=== PATIENT | male | born 1950 | race American Indian/Alaskan Native ===

== ENCOUNTER 2018-10-01 16:11 | Inpatient (IN) | payer MEDICARE ==
--- NOTE | 2018-10-01 16:26 | Event Note ---
ED Screening Note Date of service: 10/01/18 Time: 16:25 ED Screening Note: 68 y/o male comes in for 24 hour history of facial drrop. Patient has no other deficits. PMH of HTN. This initial assessment/diagnostic orders/clinical plan/treatment(s) is/are subject to change based on patients health status, clinical progression and re- assessment by fellow clinical providers in the ED. Further treatment and workup at subsequent clinical providers discretion. Patient/guardian urged not to elope from the ED as their condition may be serious if not clinically assessed and managed. Initial orders include:
[2018-10-01 16:55] LABS: Basophils % (Auto) 0.7 % (0.0-1.8); Eosinophils # (Auto) 0.1 K/mm3 (0.0-0.4); Eosinophils % (Auto) 1.5 % (0.0-4.3); Hematocrit 43.1 % (35.5-45.6); Hemoglobin 14.8 gm/dl (11.8-15.2); Lymphocytes # (Auto) 1.9 K/mm3 (1.2-5.4); Lymphocytes % (Auto) 30.5 % (13.4-35.0); Mean Corpuscular HGB Conc 34 % (32-34); Mean Corpuscular Volume 90 fl (84-94); Monocytes # (Auto) 0.6 K/mm3 (0.0-0.8); Monocytes % (Auto) 9.1 % (0.0-7.3); Platelet Count 161 K/mm3 (140-440); Red Cell Distribution Width 13.7 % (13.2-15.2)
[2018-10-01 17:09] LABS: INR 1.09 (0.87-1.13)
[2018-10-01 17:11] LABS: Partial Thromboplastin Time 30.7 Sec. (24.2-36.6)
[2018-10-01 17:14] LABS: Creatine Kinase MB 2.4 ng/mL (0.0-4.0)
[2018-10-01] MEDS ORDERED: APRESOLINE ONE (17:20)
[2018-10-01] MEDS ORDERED: APRESOLINE IV ONE (17:23)
--- NOTE | 2018-10-01 17:23 | Emergency Department Report ---
ED Neuro Deficit HPI - General Chief Complaint: Neuro Symptoms/Deficit Stated Complaint: SPEECH SLUR Time Seen by Provider: 10/01/18 16:59 Source: patient Mode of arrival: Ambulatory Limitations: No Limitations - History of Present Illness Initial Comments: Patient is a 68-year-old male presents to emergency room with complaints of left-sided facial droop and slurred speech. Patient states his last well time was 5 PM yesterday. Patient states his facial droop started yesterday at 5 PM and his slurred speech started today at 7 AM. Patient denies chest pain. Patient denies limb weakness. Patient denies shortness of breath. Patient denies fever and chills. Patient denies headache. -: Sudden Location: speech, left face Presenting Symptoms: Present: Facial Droop/Numbness History of same: No Place: home Severity: severe Improves With: none Worsens With: none On Anticoagulants: No Context: sudden onset Associated Symptoms: denies: confusion, chest pain, cough, diaphoresis, fever/chills, headaches, loss of appetite, malise, nausea/vomiting, vertigo, seizures, shortness of breath, syncope - Related Data Home Medications: Home Medications Medication Instructions Recorded Confirmed Last Taken amLODIPine [Norvasc] 5 mg PO DAILY 10/01/18 10/01/18 Unknown Allergies/Adverse Reactions: Allergies Allergy/AdvReac Type Severity Reaction Status Date / Time No Known Allergies Allergy Verified 10/01/18 16:20 ED Review of Systems ROS: Stated complaint: SPEECH SLUR Other details as noted in HPI Constitutional: denies: chills, fever Eyes: denies: eye pain, eye discharge, vision change ENT: denies: ear pain, throat pain Respiratory: denies: cough, shortness of breath, wheezing Cardiovascular: denies: chest pain, palpitations Endocrine: no symptoms reported Gastrointestinal: denies: abdominal pain, nausea, diarrhea Genitourinary: denies: urgency, dysuria Musculoskeletal: denies: back pain, joint swelling, arthralgia Skin: denies: rash, lesions Neurological: denies: headache, weakness, paresthesias Psychiatric: denies: anxiety, depression Hematological/Lymphatic: denies: easy bleeding, easy bruising ED Past Medical Hx - Social History Smoking Status: Never Smoker Substance Use Type: None - Medications Home Medications: Home Medications Medication Instructions Recorded Confirmed Last Taken Type amLODIPine [Norvasc] 5 mg PO DAILY 10/01/18 10/01/18 Unknown History ED Neuro Physical Exam - General Limitations: No Limitations General appearance: alert, in no apparent distress Suspected Stroke: Yes - Head Head exam: Present: atraumatic, normocephalic - Eye Eye exam: Present: normal appearance - ENT ENT exam: Present: mucous membranes moist - Neck Neck exam: Present: normal inspection - Respiratory Respiratory exam: Present: normal lung sounds bilaterally. Absent: respiratory distress, wheezes, rales - Cardiovascular Cardiovascular Exam: Present: regular rate, normal rhythm. Absent: systolic murmur, diastolic murmur, rubs, gallop - GI/Abdominal GI/Abdominal exam: Present: soft, normal bowel sounds - Rectal Rectal exam: Present: deferred - Extremities Exam Extremities exam: Present: normal inspection - Back Exam Back exam: Present: normal inspection - Neurological Exam Neurological exam: Present: alert, oriented X3 - NIHSS Assessment Interval: Baseline 1a. Level of Consciousness: alert/keenly responsive 1b. LOC Questions: answers both correctly 1c. LOC Commands: performs tasks correctly 2. Best Gaze: normal 3. Visual: no visual loss 4. Facial Palsy: minor paralysis 5b. Motor Arm Right: no drift 5a. Motor Arm Left: no drift 6a. Motor Leg Left: no drift 6b. Motor Leg Right: no drift 7. Limb Ataxia: absent 8. Sensory: normal 9. Best Language: no aphasia 10. Dysarthria: mild/moderate dysarthria 11. Extinction/Inattention: no abnormality Total Score: 2 Stroke Severity: Minor Stroke - Psychiatric Psychiatric exam: Present: normal affect, normal mood - Skin Skin exam: Present: warm, dry, intact, normal color. Absent: rash ED Course Vital Signs 10/01/18 10/01/18 10/01/18 16:19 16:54 17:00 Temperature 97.6 F Pulse Rate 74 71 75 Respiratory 16 14 22 Rate Blood Pressure 173/102 180/83 Blood Pressure [Left] O2 Sat by Pulse 96 97 Oximetry 10/01/18 10/01/18 10/01/18 17:15 17:21 17:33 Temperature Pulse Rate 71 73 Respiratory 24 15 Rate Blood Pressure 176/125 Blood Pressure [Left] O2 Sat by Pulse 98 97 99 Oximetry 10/01/18 10/01/18 10/01/18 17:40 17:45 18:01 Temperature Pulse Rate 83 86 Respiratory 21 20 Rate Blood Pressure 168/105 168/105 161/78 Blood Pressure [Left] O2 Sat by Pulse 98 98 Oximetry 10/01/18 10/01/18 10/01/18 18:15 18:30 18:45 Temperature Pulse Rate 91 H 90 87 Respiratory 23 24 18 Rate Blood Pressure 163/77 158/86 158/86 Blood Pressure [Left] O2 Sat by Pulse 98 97 99 Oximetry 10/01/18 10/01/18 10/01/18 19:01 19:15 19:30 Temperature 98.5 F Pulse Rate 118 H 120 H 112 H Respiratory 27 H 25 H 20 Rate Blood Pressure 148/78 169/100 Blood Pressure 141/92 [Left] O2 Sat by Pulse 98 98 Oximetry 10/01/18 10/01/18 10/01/18 19:31 19:45 20:01 Temperature Pulse Rate 129 H 124 H 126 H Respiratory 26 H 26 H 23 Rate Blood Pressure 141/92 141/92 140/68 Blood Pressure [Left] O2 Sat by Pulse 97 98 96 Oximetry 10/01/18 10/01/18 10/01/18 20:15 20:30 20:31 Temperature Pulse Rate 125 H 128 H Respiratory 25 H 20 16 Rate Blood Pressure 140/68 150/120 Blood Pressure [Left] O2 Sat by Pulse 97 98 95 Oximetry 10/01/18 10/01/18 10/01/18 20:40 20:45 21:01 Temperature Pulse Rate 130 H 97 H 106 H Respiratory 18 22 Rate Blood Pressure 140/67 123/91 138/72 Blood Pressure [Left] O2 Sat by Pulse 96 94 Oximetry 10/01/18 10/01/18 10/01/18 21:15 21:31 21:45 Temperature Pulse Rate 99 H 103 H 109 H Respiratory 17 25 H 23 Rate Blood Pressure 138/72 132/80 132/80 Blood Pressure [Left] O2 Sat by Pulse 98 92 97 Oximetry 10/01/18 10/01/18 10/01/18 22:01 22:15 22:30 Temperature Pulse Rate 98 H 110 H 91 H Respiratory 21 15 26 H Rate Blood Pressure 135/94 135/94 144/83 Blood Pressure [Left] O2 Sat by Pulse 92 97 92 Oximetry 10/01/18 10/01/18 10/01/18 22:45 23:00 23:15 Temperature Pulse Rate 94 H 87 85 Respiratory 23 24 22 Rate Blood Pressure 144/83 128/77 128/77 Blood Pressure [Left] O2 Sat by Pulse 97 92 95 Oximetry 10/01/18 10/01/18 23:31 23:45 Temperature Pulse Rate 84 77 Respiratory 25 H 25 H Rate Blood Pressure 133/76 133/76 Blood Pressure [Left] O2 Sat by Pulse 94 97 Oximetry - Reevaluation(s) Reevaluation #1: I discussed all results to patient. Patient agrees with plan of care and admission. Patient will be admitted to the hospitalist service 10/01/18 18:39 Reevaluation #2: Patient noticed 3 tachycardic and EKG done. Patient found the A. fib RVR. Patient was given Cardizem push and placed on a drip. 10/01/18 20:29 - Consultations Consultation #1: Neurology base and neurologist wants the patient to be admitted for stroke workup. I discussed the case with Dr. Valdivia 10/01/18 17:21 Consultation #2: Hospitalist consulted. Hospitalist to admit patient and assume care of patient. 10/01/18 18:40 - Lab Data Result diagrams: 10/01/18 16:27 10/01/18 18:15 Lab Results 10/01/18 10/01/18 10/01/18 Range/Units 16:27 16:27 16:27 WBC 6.1 (4.5-11.0) K/mm3 RBC 4.80 (3.65-5.03) M/mm3 Hgb 14.8 (11.8-15.2) gm/dl Hct 43.1 (35.5-45.6) % MCV 90 (84-94) fl MCH 31 (28-32) pg MCHC 34 (32-34) % RDW 13.7 (13.2-15.2) % Plt Count 161 (140-440) K/mm3 Lymph % (Auto) 30.5 (13.4-35.0) % Beckham % (Auto) 9.1 H (0.0-7.3) % Eos % (Auto) 1.5 (0.0-4.3) % Baso % (Auto) 0.7 (0.0-1.8) % Lymph # 1.9 (1.2-5.4) K/mm3 Beckham # 0.6 (0.0-0.8) K/mm3 Eos # 0.1 (0.0-0.4) K/mm3 Baso # 0.0 (0.0-0.1) K/mm3 Seg Neutrophils % 58.2 (40.0-70.0) % Seg Neutrophils # 3.6 (1.8-7.7) K/mm3 PT 13.8 (12.2-14.9) Sec. INR 1.09 (0.87-1.13) APTT 30.7 (24.2-36.6) Sec. Thrombin Time 17.1 (15.1-19.6) Sec. Sodium (137-145) mmol/L Potassium (3.6-5.0) mmol/L Chloride (98-107) mmol/L Carbon Dioxide (22-30) mmol/L Anion Gap mmol/L BUN (9-20) mg/dL Creatinine (0.8-1.5) mg/dL Estimated GFR ml/min BUN/Creatinine Ratio % Glucose (75-100) mg/dL Hemoglobin A1c (4-6) % Calcium (8.4-10.2) mg/dL Total Bilirubin (0.1-1.2) mg/dL AST (5-40) units/L ALT (7-56) units/L Alkaline Phosphatase (35-129) units/L Total Creatine Kinase 144 (55-170) units/L CK-MB (CK-2) 2.4 (0.0-4.0) ng/mL CK-MB (CK-2) Rel Index 1.6 (0-4) Troponin T < 0.010 (0.00-0.029) ng/mL Total Protein (6.3-8.2) g/dL Albumin (3.9-5) g/dL Albumin/Globulin Ratio % 10/01/18 10/01/18 Range/Units 16:27 18:15 WBC (4.5-11.0) K/mm3 RBC (3.65-5.03) M/mm3 Hgb (11.8-15.2) gm/dl Hct (35.5-45.6) % MCV (84-94) fl MCH (28-32) pg MCHC (32-34) % RDW (13.2-15.2) % Plt Count (140-440) K/mm3 Lymph % (Auto) (13.4-35.0) % Beckham % (Auto) (0.0-7.3) % Eos % (Auto) (0.0-4.3) % Baso % (Auto) (0.0-1.8) % Lymph # (1.2-5.4) K/mm3 Beckham # (0.0-0.8) K/mm3 Eos # (0.0-0.4) K/mm3 Baso # (0.0-0.1) K/mm3 Seg Neutrophils % (40.0-70.0) % Seg Neutrophils # (1.8-7.7) K/mm3 PT (12.2-14.9) Sec. INR (0.87-1.13) APTT (24.2-36.6) Sec. Thrombin Time (15.1-19.6) Sec. Sodium 138 (137-145) mmol/L Potassium 3.4 L (3.6-5.0) mmol/L Chloride 103.6 (98-107) mmol/L Carbon Dioxide 23 (22-30) mmol/L Anion Gap 15 mmol/L BUN 10 (9-20) mg/dL Creatinine 0.7 L (0.8-1.5) mg/dL Estimated GFR > 60 ml/min BUN/Creatinine Ratio 14 % Glucose 104 H (75-100) mg/dL Hemoglobin A1c 6.2 H (4-6) % Calcium 8.9 (8.4-10.2) mg/dL Total Bilirubin 0.30 (0.1-1.2) mg/dL AST 15 (5-40) units/L ALT 10 (7-56) units/L Alkaline Phosphatase 63 (35-129) units/L Total Creatine Kinase (55-170) units/L CK-MB (CK-2) (0.0-4.0) ng/mL CK-MB (CK-2) Rel Index (0-4) Troponin T (0.00-0.029) ng/mL Total Protein 7.3 (6.3-8.2) g/dL Albumin 3.9 (3.9-5) g/dL Albumin/Globulin Ratio 1.1 % - EKG Data -: EKG Interpreted by Me EKG shows normal: sinus rhythm, axis, intervals, QRS complexes, ST-T waves Rate: normal Interpretation: LVH - Radiology Data Radiology results: report reviewed, image reviewed Head CT without intravenous contrast INDICATION: Possible stroke COMPARISON: None FINDINGS: The ventricles are normal in size and position. No hemorrhage or extra-axial fluid collection. No edema or mass effect. There are 2 1 cm low density areas in the left centrum se miovale consistent with ischemia. There is a third smaller area just adjacent to the left frontal horn. These may be recent. No other areas of ischemia are seen. Portions of the sinuses visualized are clear. IMPRESSION: 3 areas of low density in the left centrum semiovale may represent recent areas of ischemia. No hemorrhage is seen. - Medical Decision Making Patient is 68-year-old male presents emergency room with slurred speech and facial drooping 1 day. Patient also underwent TPA. Neurology consult on. Patient admitted to the hospitalist service. Patient's CT done and shows 3 subacute stroke. Patient's labs unremarkable. Patient's EKG normal. Patient found to have A. fib RVR in the lateral portion of his ER visit. Patient placed on Cardizem drip and given Cardizem push. - Differential Diagnosis CVA. Weakness. Facial droop. Slurred speech - Core Measures AMI Core Measures Followed: Yes Critical Care Time: Yes Critical care attestation.: If time is entered above; I have spent that time in minutes in the direct care of this critically ill patient, excluding procedure time. Critical Care Time: 35 minutes ED Disposition Clinical Impression: Facial droop, Slurred speech, Atrial fibrillation with RVR, New onset a-fib CVA (cerebral vascular accident) Qualifiers: CVA mechanism: unspecified Qualified Code(s): I63.9 - Cerebral infarction, unspecified Hypertension Qualifiers: Hypertension type: essential hypertension Qualified Code(s): I10 - Essential (primary) hypertension Disposition: OP ADMIT IP TO THIS HOSP Is pt being admited?: Yes Does the pt Need Aspirin: No Condition: Critical Time of Disposition: 18:40
[2018-10-01 17:51] LABS: Thrombin Time 17.1 Sec. (15.1-19.6)
[2018-10-01] MEDS ORDERED: NACL 0.9% 1000 ML 1,000 ML ONE (18:01)
--- NOTE | 2018-10-01 18:18 | Cat Scan Report ---
Head CT without intravenous contrast INDICATION: Possible stroke COMPARISON: None FINDINGS: The ventricles are normal in size and position. No hemorrhage or extra-axial fluid collecti on. No edema or mass effect. There are 2 1 cm low density areas in the left centrum semiovale consis tent with ischemia. There is a third smaller area just adjacent to the left frontal horn. These may b e recent. No other areas of ischemia are seen. Portions of the sinuses visualized are clear. IMPRESSION: 3 areas of low density in the left centrum semiovale may represent recent areas of ischem ia. No hemorrhage is seen. Report was called to Dr. Yung at 1715 hours central time. Time discovery was 1705 hours. Automated exposure control was utilized to diminish radiation dose Signer Name: Arya Maurice MD Signed: 10/01/2018 6:14 PM Workstation Name: [id number]
[2018-10-01 18:46] LABS: Alanine Aminotransferase 10 units/L (7-56); Albumin 3.9 g/dL (3.9-5); BUN/Creatinine Ratio 14; Blood Urea Nitrogen 10 mg/dL (9-20); Calcium 8.9 mg/dL (8.4-10.2); Hemolysis Index 12
[2018-10-01] MEDS ORDERED: ZOFRAN ONE (19:02)
[2018-10-01] MEDS ORDERED: ZOFRAN IV ONE (19:26)
[2018-10-01] MEDS ORDERED: NACL 0.9% 1000 ML 1,000 ML IV ONE (19:29)
[2018-10-01] MEDS ORDERED: CARDIZEM IV ONE (20:30)
[2018-10-01] MEDS ORDERED: CARDIZEM ONE (20:34)
--- NOTE | 2018-10-01 20:59 | History and Physical Report ---
History of Present Illness Date of examination: 10/01/18 Date of admission: 10/01/2018 Chief complaint: Left facial droop and slurred speech since morning History of present illness: 68 year-old -[place] male with history of hypertension comes in for left facial droop and slurred speech since morning. There are 2 versions that the facial droop started last evening and the second version is that it started this morning. Patient is left facial droop and slurred speech. Normal strength in left upper and left lower extremity and able to walk. No diplopia, dysphagia or nasal regurgitation of fluids. No fever or chills. No chest pain. No confusion. Has difficulty in searching for the right word Past medical history HTN Past surgical history none Family history Htn Social History Smoking Status: Never Smoker Substance Use Type: None He Related Data Home Medications: Home Medications Medication Instructions Recorded Confirmed Last Taken amLODIPine [Norvasc] 5 mg PO DAILY 10/01/18 10/01/18 Unknown Allergies/Adverse Reactions: Allergies Allergy/AdvReac Type Severity Reaction Status Date / Time No Known Allergies Allergy Verified 10/01/18 16:20 - Medications Home Medications: Home Medications Medication Instructions Recorded Confirmed Last Taken Type amLODIPine [Norvasc] 5 mg PO DAILY 10/01/18 10/01/18 Unknown History Review of Systems ROS: Stated complaint: SPEECH SLUR Other details as noted in HPI Constitutional: denies: chills, fever Eyes: denies: eye pain, eye discharge, vision change ENT: denies: ear pain, throat pain Respiratory: denies: cough, shortness of breath, wheezing Cardiovascular: denies: chest pain, palpitations Endocrine: no symptoms reported Gastrointestinal: denies: abdominal pain, nausea, diarrhea Genitourinary: denies: urgency, dysuria Musculoskeletal: denies: back pain, joint swelling, arthralgia Skin: denies: rash, lesions Neurological: Left facial droop and slurred speech, difficulty finding words consistent with dyspraxia Psychiatric: denies: anxiety, depression Hematological/Lymphatic: denies: easy bleeding, easy bruising Abdomen L with echo no use of October. He is a 1 is on is forgetting to ADMISSION OVER, THE Medications and Allergies Allergies Allergy/AdvReac Type Severity Reaction Status Date / Time No Known Allergies Allergy Verified 10/01/18 16:20 Home Medications Medication Instructions Recorded Confirmed Last Taken Type amLODIPine [Norvasc] 5 mg PO DAILY 10/01/18 10/01/18 Unknown History Active Meds: Active Medications Diltiazem HCl (Cardizem/D5w 100mg/100ml) 100 mg in 100 mls @ 5 mls/hr IV TITR JORGE; Protocol Exam - Constitutional Vitals: Temp Pulse Resp BP Pulse Ox 98.5 F 112 H 20 141/92 98 10/01/18 19:30 10/01/18 19:30 10/01/18 19:30 10/01/18 19:30 10/01/18 19:30 General appearance: Present: no acute distress, well-nourished - EENT Eyes: Present: PERRL ENT: hearing intact, clear oral mucosa - Neck Neck: Present: supple, normal ROM - Respiratory Respiratory effort: normal Respiratory: bilateral: CTA - Cardiovascular Heart rate: 70 Rhythm: regular Heart Sounds: Present: S1 & S2. Absent: rub, click - Extremities Extremities: no ischemia, pulses intact, pulses symmetrical, No edema Peripheral Pulses: within normal limits - Abdominal General gastrointestinal: Present: soft, non-tender, non-distended, normal bowel sounds Male genitourinary: Present: normal - Rectal Rectal Exam: deferred - Integumentary Integumentary: Present: clear, warm, dry - Musculoskeletal Musculoskeletal: gait normal, strength equal bilaterally - Psychiatric Psychiatric: appropriate mood/affect, intact judgment & insight - Neurologic Neurologic: focal deficits (left facial palsy ), moves all extremities (strength is 5/5 in all 4 extremities) - Allied Health Allied health notes reviewed: nursing, case management Results - Labs CBC & Chem 7: 10/01/18 16:27 10/01/18 18:15 Labs: Laboratory Last Values WBC 6.1 K/mm3 (4.5-11.0) 10/01/18 16:27 RBC 4.80 M/mm3 (3.65-5.03) 10/01/18 16:27 Hgb 14.8 gm/dl (11.8-15.2) 10/01/18 16:27 Hct 43.1 % (35.5-45.6) 10/01/18 16:27 MCV 90 fl (84-94) 10/01/18 16:27 MCH 31 pg (28-32) 10/01/18 16:27 MCHC 34 % (32-34) 10/01/18 16:27 RDW 13.7 % (13.2-15.2) 10/01/18 16:27 Plt Count 161 K/mm3 (140-440) 10/01/18 16:27 Lymph % (Auto) 30.5 % (13.4-35.0) 10/01/18 16:27 Cobb % (Auto) 9.1 % (0.0-7.3) H 10/01/18 16:27 Eos % (Auto) 1.5 % (0.0-4.3) 10/01/18 16:27 Baso % (Auto) 0.7 % (0.0-1.8) 10/01/18 16:27 Lymph # 1.9 K/mm3 (1.2-5.4) 10/01/18 16:27 Cobb # 0.6 K/mm3 (0.0-0.8) 10/01/18 16: Eos # 0.1 K/mm3 (0.0-0.4) 10/01/18 16:27 Baso # 0.0 K/mm3 (0.0-0.1) 10/01/18 16:27 Seg Neutrophils % 58.2 % (40.0-70.0) 10/01/18 16: Seg Neutrophils # 3.6 K/mm3 (1.8-7.7) 10/01/18 16:27 PT 13.8 Sec. (12.2-14.9) 10/01/18 16: INR 1.09 (0.87-1.13) 10/01/18 16:27 APTT 30.7 Sec. (24.2-36.6) 10/01/18 16:27 17.1 Sec. (15.1-19.6) 10/01/18 16:27 Sodium 138 mmol/L (137-145) 10/01/18 18:15 Potassium 3.4 mmol/L (3.6-5.0) L 10/01/18 18:15 Chloride 103.6 mmol/L (98-107) 10/01/18 18:15 Carbon Dioxide 23 mmol/L (22-30) 10/01/18 18:15 15 mmol/L 10/01/18 18:15 BUN 10 mg/dL (9-20) 10/01/18 18:15 0.7 mg/dL (0.8-1.5) L 10/01/18 18:15 Estimated GFR > 60 ml/min 10/01/18 18:15 14 % 10/01/18 18:15 Glucose 104 mg/dL (75-100) H 10/01/18 18:15 Calcium 8.9 mg/dL (8.4-10.2) 10/01/18 18:15 0.30 mg/dL (0.1-1.2) 10/01/18 18:15 AST 15 units/L (5-40) 10/01/18 18:15 ALT 10 units/L (7-56) 10/01/18 18:15 63 units/L (35-129) 10/01/18 18:15 144 units/L (55-170) 10/01/18 16:27 CK-MB (CK-2) 2.4 ng/mL (0.0-4.0) 10/01/18 16:27 CK-MB (CK-2) Rel Index 1.6 (0-4) 10/01/18 16:27 < 0.010 ng/mL (0.00-0.029) 10/01/18 16:27 7.3 g/dL (6.3-8.2) 10/01/18 18:15 3.9 g/dL (3.9-5) 10/01/18 18:15 1.1 % 10/01/18 18:15 Short CBC 10/01/18 Range/Units 16:27 WBC 6.1 (4.5-11.0) K/mm3 Hgb 14.8 (11.8-15.2) gm/dl Hct 43.1 (35.5-45.6) % Plt Count 161 (140-440) K/mm3 BMP 10/01/18 18:15 Sodium 138 Potassium 3.4 L Chloride 103.6 Carbon Dioxide 23 BUN 10 Creatinine 0.7 L Glucose 104 H Calcium 8.9 Cardiac Enzymes 10/01/18 Range/Units 16:27 Total Creatine Kinase 144 (55-170) units/L CK-MB (CK-2) 2.4 (0.0-4.0) ng/mL Troponin T < 0.010 (0.00-0.029) ng/mL Liver Function 10/01/18 Range/Units 18:15 Total Bilirubin 0.30 (0.1-1.2) mg/dL AST 15 (5-40) units/L ALT 10 (7-56) units/L Alkaline Phosphatase 63 (35-129) units/L Albumin 3.9 (3.9-5) g/dL - Imaging and Cardiology EKG: report reviewed (heart rate 70/m normal sinus rhythm no acute ST-T wave changes) CT Scan - head: report reviewed Imaging and Cardiology: Head CT IMPRESSION: 3 areas of low density in the left centrum semiovale may represent recent areas of ischemia. No hemorrhage is seen. Assessment and Plan Advance Directives: Yes (full code) VTE prophylaxis?: Chemical Plan of care discussed with patient/family: Yes - Patient Problems (1) CVA (cerebral vascular accident) Current Visit: Yes Status: Acute Qualifiers: CVA mechanism: unspecified Qualified Code(s): I63.9 - Cerebral infarction, unspecified Plan to address problem: A acute CVA workup Patient is left facial droop and slurred speech and dyspraxia Stroke protocol initiated Neurology consult requested Aspirin and Plavix initiated Statins initiated (2) Atrial fibrillation with RVR Current Visit: Yes Status: Acute Plan to address problem: Patient developed atrial fibrillation with RVR while in the emergency room Patient initiated on Cardizem drip Cardiology consult requested (3) Hypertension Current Visit: Yes Status: Chronic Qualifiers: Hypertension type: essential hypertension Qualified Code(s): I10 - Essential (primary) hypertension Plan to address problem: Continue amlodipine (4) Hypokalemia Current Visit: Yes Status: Acute Plan to address problem: Potassium supplemented (5) DVT prophylaxis Current Visit: Yes Status: Acute Plan to address problem: On Lovenox and GI prophylaxis
[2018-10-01] MEDS ORDERED: CARDIZEM/D5W 100MG/100ML 100 MG/100 ML BAG IV SCH (21:00)
[2018-10-01] MEDS ORDERED: ZOFRAN IV PRN (21:14)
[2018-10-01] MEDS ORDERED: TYLENOL PO PRN (21:14)
[2018-10-01] MEDS ORDERED: SODIUM CHLORIDE FLUSH SYRINGE 10 ML IV PRN (21:14)
[2018-10-01] MEDS ORDERED: IBUPROFEN PO PRN (21:14)
[2018-10-01] MEDS ORDERED: DILAUDID IV PRN (21:14)
[2018-10-01] MEDS ORDERED: SODIUM CHLORIDE FLUSH SYRINGE 10 ML INJ PRN (21:20)
[2018-10-01] MEDS ORDERED: PLAVIX PO ONE (21:29)
[2018-10-01] MEDS ORDERED: LOVENOX SUB-Q SCH (22:00)
[2018-10-02] MEDS: ASPIRIN PO SCH ×2 (00:58→13:36)
[2018-10-02] MEDS: CARDIZEM CD PO SCH ×2 (00:59→22:00)
[2018-10-02] MEDS: PEPCID PO SCH ×3 (01:08→22:00)
[2018-10-02] MEDS ORDERED: LOVENOX SUB-Q ONE (02:18)
[2018-10-02] MEDS: SODIUM CHLORIDE FLUSH SYRINGE 10 ML IV SCH ×3 (02:47→22:01)
[2018-10-02 05:33] LABS: Basophils % (Auto) 0.5 % (0.0-1.8); Eosinophils % (Auto) 0.3 % (0.0-4.3); Hematocrit 42.7 % (35.5-45.6); Hemoglobin 14.4 gm/dl (11.8-15.2); Lymphocytes # (Auto) 1.6 K/mm3 (1.2-5.4); Lymphocytes % (Auto) 21.4 % (13.4-35.0); Mean Corpuscular HGB Conc 34 % (32-34); Mean Corpuscular Volume 91 fl (84-94); Monocytes # (Auto) 0.7 K/mm3 (0.0-0.8); Platelet Count 167 K/mm3 (140-440); Red Blood Count 4.71 M/mm3 (3.65-5.03); Red Cell Distribution Width 13.7 % (13.2-15.2)
[2018-10-02 05:56] LABS: Alanine Aminotransferase 9 units/L (7-56); Albumin 3.8 g/dL (3.9-5); BUN/Creatinine Ratio 13; Blood Urea Nitrogen 9 mg/dL (9-20); Calcium 8.7 mg/dL (8.4-10.2); Chol/HDL Ratio 3.43 %; HDL Cholesterol 37 mg/dL (40-59); Hemolysis Index 7; LDL Cholesterol,Direct 89 mg/dL (50-130)
--- NOTE | 2018-10-02 08:16 | Progress Note ---
Assessment and Plan Assessment and plan: 68-year-old male patient was admitted through emergency room with right-sided weakness Neuro workup so far is consistent with acute CVA, patient also has paroxysmal atrial fibrillation with rapid ventricular rate -- CVA (cerebral vascular accident) Current Visit: Yes Status: Acute Acute CVA ; not a candidate for TPA Patient is left facial droop and slurred speech and dyspraxia On Stroke protocol. Neuro workup in progress Aspirin and Statin, PT,OT,ST and rehab Neurologist Dr Cardona evaluated the patient Discussed with him Recommend heparin drip[without bolus] And start Eliquis tomorrow if stable Neuro w/u so far: CT head without contrast; 3 areas of low density in lt centrum semiovale represent recent area of ischemia MRI brain; Patchy areas of ischemia seen in the deep white matter watershed area of the left cerebral hemisphere minimal involvement of the ganglion capsular region; Findings consistent with acute early subacute CVA MRA: Slow flow or no flow suggested in the left internal carotid artery Slow flow in distal right vertebral artery. hemo dynamically significant marked asymmetry in the MCA territory Carotid Doppler; right internal carotid artery less than 50 diameter stenosis Left internal carotid artery occlusion Echocardiogram --Lt Carotid artery stenosis/Occlusion Current Visit: Yes Status: Acute Plan to address problem: Antiplatelets and statins Vascular consult --Atrial fibrillation with RVR Current Visit: Yes Status: Acute Plan to address problem: Patient developed atrial fibrillation with RVR s/p Cardizem drip, changed to oral Cardizem Sinus rhythm today Cardiology evaluated --Hypertension Current Visit: Yes Status: Chronic Permissive hypertension per stroke protocol Continue antihypertensives --Hypokalemia Current Visit: Yes Status: Acute Plan to address problem: Potassium supplemented,corrected -- DVT prophylaxis Current Visit: Yes Status: Acute Plan to address problem: On heparin drip and GI prophylaxis ;Pepcid Physical therapy occupational therapy speech therapy Discharge planning. Case management; rehabilitation versus home with home health When medically stable Follow-up conference and recommendations Plan of care is reviewed with the patient, his at the bedside And his nurse Disposition; follow clinically, PT OT rehabilitation DC heparin drip and started Mucomyst tomorrow if stable Follow neurology, cardiology recommendations History Interval history: Patient seen and examined medical records reviewed 68-year-old male patient was admitted through emergency room with right-sided weakness Neuro workup so far is consistent with acute CVA, patient also has paroxysmal atrial fibrillation with rapid ventricular rate Upon admission status post Cardizem drip, now sinus rhythm Patient is comfortable right-sided weakness and speech Vital signs noted Hospitalist Physical - Constitutional Vitals: Temp Pulse Resp BP Pulse Ox 98.5 F 70 20 122/71 98 10/01/18 19:30 10/02/18 07:15 10/02/18 07:15 10/02/18 07:15 10/02/18 07:15 General appearance: Present: no acute distress, well-nourished, other (right facial weakness) - EENT Eyes: Present: PERRL, EOM intact - Neck Neck: Present: supple, normal ROM - Respiratory Respiratory effort: normal Respiratory: bilateral: diminished, negative: rales, rhonchi, wheezing - Cardiovascular Rhythm: regular Heart Sounds: Present: S1 & S2 - Extremities Extremities: no ischemia, No edema - Abdominal General gastrointestinal: soft, non-tender, non-distended, normal bowel sounds - Integumentary Integumentary: Present: clear, warm - Psychiatric Psychiatric: appropriate mood/affect, other (dysarthria) - Neurologic Neurologic: other (dysarthria, right facial droop, right upper and lower extremity weakness,) Results - Labs CBC & Chem 7: 10/02/18 16:09 10/02/18 04:42 Labs: Laboratory Last Values WBC 7.6 K/mm3 (4.5-11.0) 10/02/18 04:42 RBC 4.71 M/mm3 (3.65-5.03) 10/02/18 04:42 Hgb 14.4 gm/dl (11.8-15.2) 10/02/18 04:42 Hct 42.7 % (35.5-45.6) 10/02/18 04:42 MCV 91 fl (84-94) 10/02/18 04:42 MCH 31 pg (28-32) 10/02/18 04:42 MCHC 34 % (32-34) 10/02/18 04:42 RDW 13.7 % (13.2-15.2) 10/02/18 04:42 Plt Count 167 K/mm3 (140-440) 10/02/18 04:42 Lymph % (Auto) 21.4 % (13.4-35.0) 10/02/18 04:42 [place] % (Auto) 9.0 % (0.0-7.3) H 10/02/18 04:42 Eos % (Auto) 0.3 % (0.0-4.3) 10/02/18 04:42 Baso % (Auto) 0.5 % (0.0-1.8) 10/02/18 04:42 Lymph # 1.6 K/mm3 (1.2-5.4) 10/02/18 04:42 [place] # 0.7 K/mm3 (0.0-0.8) 10/02/18 04:42 Eos # 0.0 K/mm3 (0.0-0.4) 10/02/18 04:42 Baso # 0.0 K/mm3 (0.0-0.1) 10/02/18 04:42 Seg Neutrophils % 68.8 % (40.0-70.0) 10/02/18 04:42 Seg Neutrophils # 5.3 K/mm3 (1.8-7.7) 10/02/18 04:42 PT 13.8 Sec. (12.2-14.9) 10/01/18 16:27 INR 1.09 (0.87-1.13) 10/01/18 16:27 APTT 30.7 Sec. (24.2-36.6) 10/01/18 16:27 17.1 Sec. (15.1-19.6) 10/01/18 16:27 Sodium 138 mmol/L (137-145) 10/02/18 04:42 Potassium 3.7 mmol/L (3.6-5.0) 10/02/18 04:42 Chloride 102.0 mmol/L (98-107) 10/02/18 04:42 Carbon Dioxide 26 mmol/L (22-30) 10/02/18 04:42 14 mmol/L 10/02/18 04:42 BUN 9 mg/dL (9-20) 10/02/18 04:42 0.7 mg/dL (0.8-1.5) L 10/02/18 04:42 Estimated GFR > 60 ml/min 10/02/18 04:42 13 % 10/02/18 04:42 Glucose 117 mg/dL (75-100) H 10/02/18 04:42 6.2 % (4-6) H 10/01/18 16:27 Calcium 8.7 mg/dL (8.4-10.2) 10/02/18 04:42 0.60 mg/dL (0.1-1.2) 10/02/18 04:42 AST 15 units/L (5-40) 10/02/18 04:42 ALT 9 units/L (7-56) 10/02/18 04:42 63 units/L (35-129) 10/02/18 04:42 144 units/L (55-170) 10/01/18 16:27 CK-MB (CK-2) 2.4 ng/mL (0.0-4.0) 10/01/18 16:27 CK-MB (CK-2) Rel Index 1.6 (0-4) 10/01/18 16:27 < 0.010 ng/mL (0.00-0.029) 10/01/18 16:27 7.4 g/dL (6.3-8.2) 10/02/18 04:42 3.8 g/dL (3.9-5) L 10/02/18 04:42 1.1 % 10/02/18 04:42 Triglycerides 57 mg/dL (2-149) 10/02/18 04:42 Cholesterol 127 mg/dL (50-199) 10/02/18 04:42 89 mg/dL (50-130) 10/02/18 04:42 37 mg/dL (40-59) L 10/02/18 04:42 3.43 % 10/02/18 04:42 Active Medications - Current Medications Current Medications: Generic Name Dose Route Start Last Admin Trade Name Freq PRN Reason Stop Dose Admin Acetaminophen 650 mg 10/01/18 21:14 Tylenol PO Q4H PRN Pain MILD(1-3)/Fever >100.5/HAWK Aspirin 325 mg 10/01/18 22:00 10/02/18 00:58 Aspirin PO Not Given QDAY [facility] Atorvastatin Calcium 40 mg 10/01/18 22:00 10/02/18 00:59 Lipitor PO Not Given QHS [facility] Diltiazem HCl 120 mg 10/01/18 22:00 10/02/18 00:59 Cardizem Cd PO Not Given Q24H JORGE Enoxaparin Sodium 40 mg 10/01/18 22:00 10/02/18 02:46 Lovenox SUB-Q 40 mg QDAY JORGE Administration Famotidine 20 mg 10/01/18 22:00 10/02/18 01:08 Pepcid PO Not Given BID JORGE Hydromorphone HCl 0.5 mg 10/01/18 21:14 Dilaudid IV Q3H PRN Pain , Severe (7-10) Diltiazem HCl 100 mg in 100 mls @ 5 mls/hr 10/01/18 21:00 10/01/18 20:45 Cardizem/D5w 100mg/100ml IV 10/02/18 20:59 5 mg/hr TITR JORGE 5 mls/hr Administration Protocol 5 MG/HR Ibuprofen 600 mg 10/01/18 21:14 Ibuprofen PO Q6H PRN Pain, Mild (1-3) Ondansetron HCl 4 mg 10/01/18 21:14 Zofran IV Q8H PRN Nausea And Vomiting Sodium Chloride 10 ml 10/01/18 22:00 10/02/18 02:47 Sodium Chloride Flush Syringe 10 Ml IV 10 ml BID JORGE Administration Sodium Chloride 10 ml 10/01/18 21:14 Sodium Chloride Flush Syringe 10 Ml IV PRN PRN LINE FLUSH
--- NOTE | 2018-10-02 10:42 | Vascular Lab Report ---
"DUPLEX DOPPLER ULTRASOUND CAROTID, BILATERAL INDICATION: stroke. FINDINGS: RIGHT CAROTID: Moderate atherosclerotic plaque Right CCA velocity: 120 cm/sec. Right ICA peak systolic velocity: 80 cm/sec. ICA/CCA PSV Ratio: 0.7. Right Vertebral Artery: Antegrade flow. LEFT CAROTID: The left internal carotid artery appears to be completely occluded. Left CCA velocity: 150 cm/sec. Left ICA peak systolic velocity: Appears occluded. ICA/CCA PSV Ratio: Not available. Left Vertebral Artery: Antegrade flow. IMPRESSION: 1. Right Internal Carotid Artery: Less than 50% diameter stenosis. 2. Left Internal Carotid Artery: Total occlusion. Velocity criteria are extrapolated from diameter data as defined by the Society of Radiologists in Ul trasound Consensus Conference, Radiology 2003; 229;340-346. Degree of Stenosis (%) || ICA PSV (cm/sec) || Plaque estimate (%) || ICA/CCA PSV Ratio Normal <125 None <2.0 <50 <125 <50 <2.0 50-69 125-230 50 2.0-4.0 70 but less than 100 >230 50 >4.0 Near occlusion High, low, or none visible variable Total occlusion None visible; no lumen N/A Signer Name: Alireza Euceda MD Signed: 10/02/2018 10:38 AM Workstation Name: [id number]"
--- NOTE | 2018-10-02 12:01 | Magnetic Resonance Report ---
MR brain wo con INDICATION / CLINICAL INFORMATION: 68 years Male; stroke. TECHNIQUE: Multiplanar, multisequence MR images of the brain were obtained. COMPARISON: CT - 10/01/2018 FINDINGS: BRAIN / INTRACRANIAL CONTENTS: Patchy areas of ischemia are seen in the deep white matter watershed a reas of the left cerebral hemisphere. Minimal involvement of the gangliocapsular region noted. These findings are acute/early subacute in age by ADC map. Gradient echo imaging demonstrates punctate foci of decreased signal in the left gangliocapsular deanna on - old microhemorrhages related to hypertension might be considered. When reviewing CT, I do not be lieve these findings are related to acute hemorrhagic foci. Mild cerebral and cerebellar atrophy. There are mild areas of increased signal intensity on FLAIR imaging in the white matter of the cerebr al hemispheres. These are nonspecific findings and may be related to microangiopathy (hypertension, d iabetes, atherosclerosis), given the patient's age. Otherwise, no acute ischemia, acute hemorrhage, or hydrocephalus. CRANIOCERVICAL JUNCTION: No significant abnormality. VASCULAR FLOW-VOIDS: Significant narrowing suggested in the distal right vertebral artery. There is a lso increased T2 signal intensity seen in the left internal carotid artery, suggesting slow or no sahra w. ORBITS: No significant abnormality of visualized orbits. SINUSES / MASTOIDS: Mild to moderate mucosal thickening seen in the ethmoids. ADDITIONAL FINDINGS: None. IMPRESSION: 1. Ischemic changes in the left cerebral hemisphere as described above. 2. Slow or no flow suggested in the left internal carotid artery. There is also significant narrowing suggested in the distal right vertebral artery. Signer Name: Jake Mcrae MD, III Signed: 10/02/2018 11:56 AM Workstation Name: [id number]
--- NOTE | 2018-10-02 12:14 | Magnetic Resonance Report ---
MR MRA/MRV head wo con INDICATION / CLINICAL INFORMATION: 68 years Male; stroke. TECHNIQUE: 3-D time of flight. NASCET type criteria used to evaluate stenoses. COMPARISON: None available. FINDINGS: INTERNAL CAROTID ARTERIES: The left internal carotid arteries not visualized, suggesting slow or no f low. The right internal carotid artery is widely patent. VERTEBROBASILAR SYSTEM: The left vertebral artery is patent. There appears to be significant narrowin g in the distal right vertebral artery, resulting in slow flow in this vessel as well. DISTAL BRANCHES: Right MCA territory is much better visualized than the left, related to decreased fl ow in the left internal carotid artery. Focal areas of short segment narrowing are seen in the proxim al A1 segment on the right. Note, the P1 segment on the right is hypoplastic, which is of normal vari ant. A majority of blood flow to the right posterior cerebral circulation is via the posterior commun icating artery on the right. The distal left [employer] branches are better visualized than the right. ANEURYSM: None identified. IMPRESSION: 1. Slow or no flow suggested in the left internal carotid artery. 2. Slow flow suggested distal right vertebral artery, most likely related to hemodynamically signific ant narrowing distally. 3. Marked asymmetry in the MCA territories as described above. Signer Name: Jake Mcrae MD, III Signed: 10/02/2018 12:09 PM Workstation Name: [id number]
--- NOTE | 2018-10-02 12:51 | Consultation ---
History of Present Illness - Reason for Consult Consult date: 10/02/18 stroke - History of Present Illness Left facial droop and slurred speech since morning History of present illness: 68 year-old -[place] male with history of hypertension comes in for left facial droop and slurred speech since morning. There are 2 versions that the facial droop started last evening and the second version is that it started this morning. Patient is left facial droop and slurred speech. Normal strength in left upper and left lower extremity and able to walk. No diplopia, dysphagia or nasal regurgitation of fluids. No fever or chills. No chest pain. No confusion. Has difficulty in searching for the right word Vascular is consulted for left internal carotid artery occlusion. Patient was seen and unable to respond to my questions except for shaking his head and nodding his head. He reports that he can feel his body and face and he has 5 out of 5 strength in his arms and legs. He has a facial droop. Palpable pedal pulses and radial pulses. MRI and MRA reviewed demonstrating left internal carotid artery occlusion with left-sided stroke. Ultrasound confirms findings. Past medical history HTN Past surgical history none Family history Htn Social History Smoking Status: Never Smoker Substance Use Type: None Medications and Allergies Allergies Allergy/AdvReac Type Severity Reaction Status Date / Time No Known Allergies Allergy Verified 10/01/18 16:20 Home Medications Medication Instructions Recorded Confirmed Last Taken Type amLODIPine [Norvasc] 5 mg PO DAILY 10/01/18 10/01/18 Unknown History Active Meds: Active Medications Acetaminophen (Tylenol) 650 mg PO Q4H PRN PRN Reason: Pain MILD(1-3)/Fever >100.5/HAWK Aspirin (Aspirin) 325 mg PO QDAY [facility] Last Admin: 10/02/18 00:58 Dose: Not Given Documented by: Atorvastatin Calcium (Lipitor) 40 mg PO QHS [facility] Last Admin: 10/02/18 00:59 Dose: Not Given Documented by: Diltiazem HCl (Cardizem Cd) 120 mg PO Q24H [facility] Last Admin: 10/02/18 00:59 Dose: Not Given Documented by: Enoxaparin Sodium (Lovenox) 40 mg SUB-Q QDAY [facility] Last Admin: 10/02/18 02:46 Dose: 40 mg Documented by: Famotidine (Pepcid) 20 mg PO BID [facility] Last Admin: 10/02/18 01:08 Dose: Not Given Documented by: Hydromorphone HCl (Dilaudid) 0.5 mg IV Q3H PRN PRN Reason: Pain , Severe (7-10) Ibuprofen (Ibuprofen) 600 mg PO Q6H PRN PRN Reason: Pain, Mild (1-3) Ondansetron HCl (Zofran) 4 mg IV Q8H PRN PRN Reason: Nausea And Vomiting Sodium Chloride (Sodium Chloride Flush Syringe 10 Ml) 10 ml IV BID JORGE Last Admin: 10/02/18 02:47 Dose: 10 ml Documented by: Sodium Chloride (Sodium Chloride Flush Syringe 10 Ml) 10 ml IV PRN PRN PRN Reason: LINE FLUSH Exam - Constitutional Vitals: Temp Pulse Resp BP Pulse Ox 97.7 F 60 18 118/95 98 10/02/18 10:15 10/02/18 09:51 10/02/18 10:15 10/02/18 10:15 10/02/18 09:51 General appearance: Present: no acute distress (cannot respond to questions due to aphasia) - EENT Eyes: Present: EOM intact ENT: hearing intact - Respiratory Respiratory effort: normal - Extremities Extremities: pulses intact, normal temperature, normal color - Psychiatric Psychiatric: cooperative - Neurologic Neurologic: other (see HPI) Results - Labs CBC & Chem 7: 10/02/18 04:42 10/02/18 04:42 Labs: Abnormal lab results 10/01/18 10/01/18 10/01/18 Range/Units 16:27 16:27 18:15 [place] % (Auto) 9.1 H (0.0-7.3) % Potassium 3.4 L (3.6-5.0) mmol/L Creatinine 0.7 L (0.8-1.5) mg/dL Glucose 104 H (75-100) mg/dL Hemoglobin A1c 6.2 H (4-6) % Albumin (3.9-5) g/dL HDL Cholesterol (40-59) mg/dL 10/02/18 10/02/18 Range/Units 04:42 04:42 [place] % (Auto) 9.0 H (0.0-7.3) % Potassium (3.6-5.0) mmol/L Creatinine 0.7 L (0.8-1.5) mg/dL Glucose 117 H (75-100) mg/dL Hemoglobin A1c (4-6) % Albumin 3.8 L (3.9-5) g/dL HDL Cholesterol 37 L (40-59) mg/dL - Imaging and Cardiology MRI - head: report reviewed, image reviewed Assessment and Plan 68-year-old male with acute left sided CVA and left internal carotid artery occlusion. Recommend CTA to confirm findings. Ultrasound and MRA demonstrate left internal carotid artery occlusion. If findings are correct, which they likely are, no interventions are required. Internal carotid artery occlusion is not operated upon. Recommend neurology consult for optimal medical management.
--- NOTE | 2018-10-02 13:25 | Consultation ---
History of Present Illness Consult date: 10/02/18 Consult reason: atrial fibrillation History of present illness: This is a 68 year old male with a history of hypertension who is admitted with acute CVA. Neurology workup is in process. His initial ECG was sinus rhythm no acute ischemic changes. A repeat ECG was done which showed atrial fibrillation with a rapid ventricular response which was treated with intravenous Cardizem. Patient denies chest pain, unusual shortness of breath and palpitations. Patient denies history of arrhythmias and had no prior cardiac evaluation. Cardiac consultation has been requested for paroxysmal atrial fibrillation management. Medications and Allergies Allergies Allergy/AdvReac Type Severity Reaction Status Date / Time No Known Allergies Allergy Verified 10/01/18 16:20 Home Medications Medication Instructions Recorded Confirmed Last Taken Type amLODIPine [Norvasc] 5 mg PO DAILY 10/01/18 10/01/18 Unknown History Active Meds: Active Medications Acetaminophen (Tylenol) 650 mg PO Q4H PRN PRN Reason: Pain MILD(1-3)/Fever >100.5/HAWK Aspirin (Aspirin) 325 mg PO QDAY [facility] Last Admin: 10/02/18 00:58 Dose: Not Given Documented by: Atorvastatin Calcium (Lipitor) 40 mg PO QHS [facility] Last Admin: 10/02/18 00:59 Dose: Not Given Documented by: Diltiazem HCl (Cardizem Cd) 120 mg PO Q24H [facility] Last Admin: 10/02/18 00:59 Dose: Not Given Documented by: Enoxaparin Sodium (Lovenox) 40 mg SUB-Q QDAY [facility] Last Admin: 10/02/18 02:46 Dose: 40 mg Documented by: Famotidine (Pepcid) 20 mg PO BID [facility] Last Admin: 10/02/18 01:08 Dose: Not Given Documented by: Hydromorphone HCl (Dilaudid) 0.5 mg IV Q3H PRN PRN Reason: Pain , Severe (7-10) Ibuprofen (Ibuprofen) 600 mg PO Q6H PRN PRN Reason: Pain, Mild (1-3) Ondansetron HCl (Zofran) 4 mg IV Q8H PRN PRN Reason: Nausea And Vomiting Sodium Chloride (Sodium Chloride Flush Syringe 10 Ml) 10 ml IV BID [facility] Last Admin: 10/02/18 02:47 Dose: 10 ml Documented by: Sodium Chloride (Sodium Chloride Flush Syringe 10 Ml) 10 ml IV PRN PRN PRN Reason: LINE FLUSH Physical Examination Vital Signs Temp Pulse Resp BP Pulse Ox 97.6 F 74 16 173/102 96 10/01/18 16:19 10/01/18 16:19 10/01/18 16:19 10/01/18 16:19 10/01/18 16:19 General appearance: no acute distress HEENT: Positive: PERRL Neck: Positive: trachea midline Cardiac: Positive: Reg Rate and Rhythm Lungs: Positive: Decreased Breath Sounds Neuro: Positive: Grossly Intact Results 10/02/18 04:42 10/02/18 04:42 Cardiac Enzymes 10/01/18 10/01/18 10/02/18 Range/Units 16:27 18:15 04:42 AST 15 15 (5-40) units/L CK-MB (CK-2) 2.4 (0.0-4.0) ng/mL Coagulation 10/01/18 Range/Units 16:27 PT 13.8 (12.2-14.9) Sec. INR 1.09 (0.87-1.13) APTT 30.7 (24.2-36.6) Sec. Lipids 10/02/18 Range/Units 04:42 Triglycerides 57 (2-149) mg/dL Cholesterol 127 (50-199) mg/dL HDL Cholesterol 37 L (40-59) mg/dL Cholesterol/HDL Ratio 3.43 % CBC 10/01/18 10/02/18 Range/Units 16:27 04:42 WBC 6.1 7.6 (4.5-11.0) K/mm3 RBC 4.80 4.71 (3.65-5.03) M/mm3 Hgb 14.8 14.4 (11.8-15.2) gm/dl Hct 43.1 42.7 (35.5-45.6) % Plt Count 161 167 (140-440) K/mm3 Lymph # 1.9 1.6 (1.2-5.4) K/mm3 [place] # 0.6 0.7 (0.0-0.8) K/mm3 Eos # 0.1 0.0 (0.0-0.4) K/mm3 Baso # 0.0 0.0 (0.0-0.1) K/mm3 Comprehensive Metabolic Panel 10/01/18 10/02/18 Range/Units 18:15 04:42 Sodium 138 138 (137-145) mmol/L Potassium 3.4 L 3.7 (3.6-5.0) mmol/L Chloride 103.6 102.0 (98-107) mmol/L Carbon Dioxide 23 26 (22-30) mmol/L BUN 10 9 (9-20) mg/dL Creatinine 0.7 L 0.7 L (0.8-1.5) mg/dL Glucose 104 H 117 H (75-100) mg/dL Calcium 8.9 8.7 (8.4-10.2) mg/dL AST 15 15 (5-40) units/L ALT 10 9 (7-56) units/L Alkaline Phosphatase 63 63 (35-129) units/L Total Protein 7.3 7.4 (6.3-8.2) g/dL Albumin 3.9 3.8 L (3.9-5) g/dL Assessment and Plan Acute CVA Paroxysmal Atrial fibrillation currently in sinus rhythm. on Cardiazem for suppression. Hypertension
[2018-10-02 16:24] LABS: Hemoglobin 14.6 gm/dl (11.8-15.2)
[2018-10-02 16:34] LABS: INR 1.17 (0.87-1.13)
[2018-10-02 16:35] LABS: Partial Thromboplastin Time 25.8 Sec. (24.2-36.6)
[2018-10-02] MEDS: HEPARIN/ 0.45% NACL-25,000 UNIT/500 ML 25,000 UNIT/500 ML BAG IV SCH (17:22)
[2018-10-02] MEDS ORDERED: LOVENOX SUB-Q SCH ×2 (22:00)
[2018-10-03 07:52] LABS: BUN/Creatinine Ratio 13; Blood Urea Nitrogen 10 mg/dL (9-20); Calcium 8.6 mg/dL (8.4-10.2); Hemolysis Index 2
[2018-10-03] MEDS: ASPIRIN PO SCH (09:11)
[2018-10-03] MEDS: PEPCID PO SCH ×2 (09:11→23:30)
[2018-10-03] MEDS: SODIUM CHLORIDE FLUSH SYRINGE 10 ML IV SCH ×2 (09:13→23:30)
--- NOTE | 2018-10-03 10:07 | Cat Scan Report ---
CTA neck without and with intravenous contrast material, with multiplanar reconstruction and with thr ee-dimensional reconstructions produced utilizing an independent workstation. CLINICAL HISTORY: left ICA occlusion TECHNIQUE: Following acquisition of a timing bolus 0.63 mm thick contiguous axial scans were obtained from aorti c arch to the skull base during rapid bolus intravenous contrast infusion. In addition to evaluation of axial source images multiplanar reconstructions were produced and reviewed for this report. Three- dimensional reconstructions were produced utilizing an independent workstation. These were also revie wed for this report. FINDINGS: No abnormalities are seen at the origins of the great vessels. Right carotid artery: No abnormalities are seen along the course of the right common carotid artery. Evaluation of the righ t carotid bifurcation is remarkable for the presence of calcified atherosclerotic plaque. There is no associated stenosis. Cervical segments of the R ICA have a normal appearance. Calcified plaque is se en in the cavernous segments of the R ICA. Left carotid artery: Left common carotid artery has an unremarkable appearance. Evaluation of the car otid bifurcations remarkable for complete occlusion of the LICA near its origin. Low attenuation mate rial within the vessel lumen may represent soft plaque versus thromboembolus. Occlusion or slow flow within the intracranial segments of the left internal carotid artery was documented on MRI brain date d 10/02/2018. There is complete absence of contrast opacification of the left internal carotid artery from the level of its origin up to the petrous carotid foramina. Retrograde contrast enhancement is o bserved in the horizontal petrous portion, cavernous segments and supraclinoid segments of this vesse l. The left vertebral artery is dominant. There is evidence of atherosclerotic disease along the proxima l intracranial segment of the right vertebral artery where calcified atherosclerotic plaque and irreg ularity of contour and caliber of this vessel are demonstrated. The greatest degree of stenosis is on the order of 50% in severity. The degree of stenosis, if any, is determined utilizing NASCET like criteria. In this case there is complete occlusion of the left internal carotid artery at its origin. There is no indication of hemod ynamically significant stenosis at the right carotid bifurcation.. Evaluation of the nonvascular soft tissue structures reveal no abnormality. There is no indication of cervical lymphadenopathy. No abnormalities are seen along the course of the airway. Visualized porti ons of the parotid glands and the submandibular salivary glands have a normal appearance. Thyroid gla nd has a normal appearance. Evaluation of the lung apices reveals no evidence of lung nodule or infil trate. Evaluation of the cervical spine revealed no significant abnormalities. IMPRESSION: 1. Complete occlusion of the left internal carotid artery at its origin. Low attenuation material wit hin the vessel in this location may represent soft plaque or a thromboembolic lesion. 2. Distal right vertebral artery stenosis on the order of 50% in severity. Contrast dose report: Omnipaque 350: 100 ml, administered intravenously Radiation dose report: series 200: CTDI: mGy series 2: mGy All CT examinations performed at this facility utilize modulated dose reduction, iterative reconstruc tion or weight-based dosing, as appropriate, to obtain a radiation dose which is as low as can reason ably be achieved. Signer Name: John Parker MD Signed: 10/03/2018 10:02 AM Workstation Name: [id number]
--- NOTE | 2018-10-03 10:14 | Cat Scan Report ---
CTA head with intravenous contrast CLINICAL HISTORY: Cerebrovascular accident. Left internal carotid artery occlusion. Symptoms of speech disturbance and facial weakness. TECHNIQUE: 0.625 mm thick contiguous axial scans were obtained from the skull base to the skull vertex during ra pid bolus administration of intravenous contrast material. Multiplanar reconstructions were produced in the coronal and sagittal planes. In addition 3 plane MIP instructions were produced and reviewed f or this report. The axial source images and reconstructed images were reviewed for this report. All CT scans at this location are performed using CT dose reduction for ALARA by means of automated e xposure control. FINDINGS: There is complete occlusion of the left internal carotid artery from its origin up to the carotid for paige at the skull base. Irregular, thready, retrograde contrast opacification of the cavernous and p etrous segments of the LICA are demonstrated. Calcified atherosclerotic plaque is present in the cave rnous segments of the LICA. Left ophthalmic artery appears to be intact. Calcified atherosclerotic plaque is seen along the cavernous segments of the right internal carotid a rtery without evidence of hemodynamically significant stenosis. I do not identified definite patent anterior communicating artery. I do not identified definite paten t left posterior communicating artery. Contrast in the petrous and cavernous segments of the LICA may originate from external to internal carotid artery collaterals. The M1 segment of the left middle ce rebral artery has an unremarkable appearance. There is no indication of large vessel occlusion in the M2 segment origins sylvian branches of the left MCA. Evaluation of the right middle cerebral artery reveals no abnormality. Both anterior cerebral arterie s have an unremarkable appearance. Evaluation of the posterior circulation is remarkable for evidence of atherosclerotic disease of the proximal R ICA where stenosis on the order of 50% is identified proximal to and distal to the origin of the posterior inferior cerebellar artery. There is no evidence of aneurysm or other vascular malformation. IMPRESSION: 1. There is complete occlusion of the LICA from its origin to the skull base. 2. Contrast enhancement in irregular, thready appearing petrous and cavernous segments of the LICA m ay be due to left external to internal carotid artery collaterals. I do not identify a patent ACOM or left P-comm. CONTRAST DOSE REPORT: Omnipaque 350: 100 ml administered intravenously. Signer Name: John Parker MD Signed: 10/03/2018 10:10 AM Workstation Name: [id number]
[2018-10-03] MEDS: HEPARIN/ 0.45% NACL-25,000 UNIT/500 ML 25,000 UNIT/500 ML BAG IV SCH (11:10)
--- NOTE | 2018-10-03 11:24 | Progress Note ---
Assessment and Plan Acute CVA on IV heparin drip Left internal carotid artery occlusion Paroxysmal Atrial fibrillation currently in sinus rhythm. on Cardiazem for suppression. Hypertension Recommendations: Continue Cardizem for suppression of paroxysmal atrial fibrillation therapy. Echocardiogram for left ventricular function assessment. Long-term patient will benefit from oral anticoagulation. Subjective Date of service: 10/03/18 Interval history: Patient has no cardiac complaints. He denies chest pain, shortness of breath and no palpitations. Awaits Neurology evaluation. Objective Vital Signs Temp Pulse Resp BP BP Pulse Ox 10/03/18 07:33 98.0 F 69 18 173/98 96 10/03/18 06:07 98.4 F 71 20 168/94 97 10/03/18 03:47 98.1 F 76 20 179/85 95 10/03/18 00:00 83 10/02/18 23:01 98.2 F 79 20 167/83 96 10/02/18 22:37 96 10/02/18 22:00 80 175/85 10/02/18 20:00 98.8 F 77 20 175/85 99 10/02/18 16:00 98.1 F 71 18 159/72 98 - Physical Examination General: No Apparent Distress HEENT: Positive: PERRL Neck: Positive: trachea midline Cardiac: Positive: Reg Rate and Rhythm Lungs: Positive: Decreased Breath Sounds Neuro: Positive: Grossly Intact Extremities: Absent: edema - Labs and Meds Coagulation 10/02/18 Range/Units 16:09 PT 14.6 (12.2-14.9) Sec. INR 1.17 H (0.87-1.13) APTT 25.8 (24.2-36.6) Sec. CBC 10/02/18 Range/Units 16:09 Hgb 14.6 (11.8-15.2) gm/dl Hct 43.0 (35.5-45.6) % Plt Count 177 (140-440) K/mm3 Comprehensive Metabolic Panel 10/03/18 Range/Units 06:57 Sodium 139 (137-145) mmol/L Potassium 3.5 L (3.6-5.0) mmol/L Chloride 103.5 (98-107) mmol/L Carbon Dioxide 27 (22-30) mmol/L BUN 10 (9-20) mg/dL Creatinine 0.8 (0.8-1.5) mg/dL Glucose 123 H (75-100) mg/dL Calcium 8.6 (8.4-10.2) mg/dL
--- NOTE | 2018-10-03 12:57 | Progress Note ---
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 vertebral which is possibly indicated for intervention/stenting to preserve cerebral brain blood volume and now new collateral circulation vascular neurosurgery on board Keep patient normotensive euvolemic avoid rapid position change dehydration hypotension and/or Valsalva Subjective Date of service: 10/03/18 Principal diagnosis: stroke Interval history: No issues overnight Recurrent strokes History of atrial fibrillation Telemetry currently sinus rhythm Patient was started on heparin last night for recurrent strokes and atrial fibrillation related strokes Patient also has vascular disease with known extra intracranial blockage He is on antiplatelet as well CTA head and neck is suggestive of a embolus lodging in the left ICA likely the cause of strokes on the left MCA distribution The oral artery is 50% stenotic vascular surgery consult ordered Patient denies any headache nausea vomiting vertigo change of vision and/or loss of consciousness seizures He still complains of slurred speech and right-sided weakness No neurological deterioration overnight Objective - Exam Narrative Exam: Awake alert and oriented 4 with severe dysarthria no evidence of aphasia or apraxia agnosia cranial nerves exam significant for right lower facial droop Otherwise normal EOMI PERRL Right-sided weakness arm and leg for out of 5 strength left side upper extremity lower extremity 5 out of 5 strength Sensory seems intact bilaterally No extra movements - Vital Sign Vital Signs - 12hr 10/03/18 10/03/18 10/03/18 03:47 06:07 07:33 Temperature 98.1 F 98.4 F 98.0 F Pulse Rate 76 71 69 Respiratory 20 20 18 Rate Blood Pressure 179/85 168/94 173/98 O2 Sat by Pulse 95 97 96 Oximetry 10/03/18 12:33 Temperature 97.5 F L Pulse Rate 68 Respiratory 16 Rate Blood Pressure 165/80 O2 Sat by Pulse 94 Oximetry - Laboratory Findings CBC and BMP: 10/02/18 16:09 10/03/18 06:57 Abnormal Lab Findings: Abnormal Labs 10/01/18 10/01/18 10/01/18 16:27 16:27 18:15 [place] % (Auto) 9.1 H INR Heparin Anti-Xa Level Potassium 3.4 L Creatinine 0.7 L Glucose 104 H POC Glucose Hemoglobin A1c 6.2 H Albumin HDL Cholesterol 10/02/18 10/02/18 10/02/18 04:42 04:42 13:53 [place] % (Auto) 9.0 H INR Heparin Anti-Xa Level Potassium Creatinine 0.7 L Glucose 117 H POC Glucose 223 H Hemoglobin A1c Albumin 3.8 L HDL Cholesterol 37 L 10/02/18 10/02/18 10/02/18 16:08 16:09 22:52 [place] % (Auto) INR 1.17 H Heparin Anti-Xa Level 0.19 L Potassium Creatinine Glucose POC Glucose 123 H Hemoglobin A1c Albumin HDL Cholesterol 10/03/18 06:57 [place] % (Auto) INR Heparin Anti-Xa Level Potassium 3.5 L Creatinine Glucose 123 H POC Glucose Hemoglobin A1c Albumin HDL Cholesterol
[2018-10-03] MEDS ORDERED: K-DUR PO ONE (14:19)
--- NOTE | 2018-10-03 16:57 | Event Note ---
Date: 10/03/18 CTA of the neck with complete occlusion of the Left ICA. No need for Vascular Surgery intervention.
--- NOTE | 2018-10-03 18:08 | Progress Note ---
Assessment and Plan Assessment and plan: 68-year-old male patient was admitted through emergency room with right-sided weakness Neuro workup so far is consistent with acute CVA, patient also has paroxysmal atrial fibrillation with rapid ventricular rate -- CVA (cerebral vascular accident) Current Visit: Yes Status: Acute Acute CVA ; not a candidate for TPA Patient is left facial droop and slurred speech and dyspraxia On Stroke protocol. Neuro workup in progress Aspirin and Statin, PT,OT,ST and rehab Neurologist Dr Cardona evaluated the patient Evaluation recommendations noted and appreciated DC heparin drip ,start Eliquis 5 mg twice a day Neuro w/u so far: CT head without contrast; 3 areas of low density in lt centrum semiovale represent recent area of ischemia MRI brain; Patchy areas of ischemia seen in the deep white matter watershed area of the left cerebral hemisphere minimal involvement of the ganglion capsular region; Findings consistent with acute early subacute CVA MRA: Slow flow or no flow suggested in the left internal carotid artery Slow flow in distal right vertebral artery. hemo dynamically significant marked asymmetry in the MCA territory Carotid Doppler; right internal carotid artery less than 50 diameter stenosis Left internal carotid artery occlusion Echocardiogram --Lt Carotid artery stenosis/Occlusion Current Visit: Yes Status: Acute Plan to address problem: Antiplatelets and statins Vascular consult --Atrial fibrillation with RVR Current Visit: Yes Status: Acute Plan to address problem: Patient developed atrial fibrillation with RVR s/p Cardizem drip, changed to oral Cardizem Sinus rhythm today Cardiology evaluated --Hypertension Current Visit: Yes Status: Chronic Permissive hypertension per stroke protocol Continue antihypertensives --Hypokalemia Current Visit: Yes Status: Acute Plan to address problem: Potassium supplemented,corrected -- DVT prophylaxis Current Visit: Yes Status: Acute Plan to address problem: On heparin drip and GI prophylaxis ;Pepcid Physical therapy occupational therapy speech therapy Discharge planning. Case management; rehabilitation versus home with home health When medically stable Follow-up conference and recommendations Plan of care is reviewed with the patient, his at the bedside And his nurse Disposition; follow clinically, PT OT acute vs subacute rehabilitation History Interval history: Patient seen and examined medical records reviewed Patient feels slightly better, dysarthria at the bedside Vital signs noted Hospitalist Physical - Constitutional Vitals: Temp Pulse Resp BP Pulse Ox 98.3 F 69 16 148/81 95 10/03/18 15:29 10/03/18 15:29 10/03/18 15:29 10/03/18 15:29 10/03/18 15:29 General appearance: Present: no acute distress, well-nourished, other (right facial weakness) - EENT Eyes: Present: PERRL, EOM intact - Neck Neck: Present: supple, normal ROM - Respiratory Respiratory effort: normal Respiratory: bilateral: diminished, negative: rales, rhonchi, wheezing - Cardiovascular Rhythm: regular Heart Sounds: Present: S1 & S2 - Extremities Extremities: no ischemia, No edema - Abdominal General gastrointestinal: soft, non-tender, non-distended, normal bowel sounds - Integumentary Integumentary: Present: clear, warm - Psychiatric Psychiatric: appropriate mood/affect, other (dysarthria) - Neurologic Neurologic: other (acute CVA with residual weakness/dysarthria) Results - Labs CBC & Chem 7: 10/02/18 16:09 10/03/18 06:57 Labs: Laboratory Last Values WBC 7.6 K/mm3 (4.5-11.0) 10/02/18 04:42 RBC 4.71 M/mm3 (3.65-5.03) 10/02/18 04:42 Hgb 14.6 gm/dl (11.8-15.2) 10/02/18 16:09 Hct 43.0 % (35.5-45.6) 10/02/18 16:09 MCV 91 fl (84-94) 10/02/18 04:42 MCH 31 pg (28-32) 10/02/18 04:42 MCHC 34 % (32-34) 10/02/18 04:42 RDW 13.7 % (13.2-15.2) 10/02/18 04:42 Plt Count 177 K/mm3 (140-440) 10/02/18 16:09 Lymph % (Auto) 21.4 % (13.4-35.0) 10/02/18 04:42 [place] % (Auto) 9.0 % (0.0-7.3) H 10/02/18 04:42 Eos % (Auto) 0.3 % (0.0-4.3) 10/02/18 04:42 Baso % (Auto) 0.5 % (0.0-1.8) 10/02/18 04:42 Lymph # 1.6 K/mm3 (1.2-5.4) 10/02/18 04:42 [place] # 0.7 K/mm3 (0.0-0.8) 10/02/18 04:42 Eos # 0.0 K/mm3 (0.0-0.4) 10/02/18 04:42 Baso # 0.0 K/mm3 (0.0-0.1) 10/02/18 04:42 Seg Neutrophils % 68.8 % (40.0-70.0) 10/02/18 04:42 Seg Neutrophils # 5.3 K/mm3 (1.8-7.7) 10/02/18 04:42 PT 14.6 Sec. (12.2-14.9) 10/02/18 16:09 INR 1.17 (0.87-1.13) H 10/02/18 16:09 APTT 25.8 Sec. (24.2-36.6) 10/02/18 16:09 17.1 Sec. (15.1-19.6) 10/01/18 16:27 Heparin Anti-Xa Level 0.53 U.I./ml (0.3-0.7) 10/03/18 06:57 Sodium 139 mmol/L (137-145) 10/03/18 06:57 Potassium 3.5 mmol/L (3.6-5.0) L 10/03/18 06:57 Chloride 103.5 mmol/L (98-107) 10/03/18 06:57 Carbon Dioxide 27 mmol/L (22-30) 10/03/18 06:57 12 mmol/L 10/03/18 06:57 BUN 10 mg/dL (9-20) 10/03/18 06:57 0.8 mg/dL (0.8-1.5) 10/03/18 06:57 Estimated GFR > 60 ml/min 10/03/18 06:57 13 % 10/03/18 06:57 Glucose 123 mg/dL (75-100) H 10/03/18 06:57 POC Glucose 123 (70-105) H 10/02/18 16:08 6.2 % (4-6) H 10/01/18 16:27 Calcium 8.6 mg/dL (8.4-10.2) 10/03/18 06:57 Magnesium 2.20 mg/dL (1.7-2.3) 10/02/18 15:02 0.60 mg/dL (0.1-1.2) 10/02/18 04:42 AST 15 units/L (5-40) 10/02/18 04:42 ALT 9 units/L (7-56) 10/02/18 04:42 63 units/L (35-129) 10/02/18 04:42 144 units/L (55-170) 10/01/18 16:27 CK-MB (CK-2) 2.4 ng/mL (0.0-4.0) 10/01/18 16:27 CK-MB (CK-2) Rel Index 1.6 (0-4) 10/01/18 16:27 < 0.010 ng/mL (0.00-0.029) 10/01/18 16:27 7.4 g/dL (6.3-8.2) 10/02/18 04:42 3.8 g/dL (3.9-5) L 10/02/18 04:42 1.1 % 10/02/18 04:42 Triglycerides 57 mg/dL (2-149) 10/02/18 04:42 Cholesterol 127 mg/dL (50-199) 10/02/18 04:42 89 mg/dL (50-130) 10/02/18 04:42 37 mg/dL (40-59) L 10/02/18 04:42 3.43 % 10/02/18 04:42 TSH 1.010 mlU/mL (0.270-4.200) 10/02/18 15:02 Free T4 1.25 ng/dL (0.76-1.46) 10/02/18 15:02 Active Medications - Current Medications Current Medications: Generic Name Dose Route Start Last Admin Trade Name Freq PRN Reason Stop Dose Admin Acetaminophen 650 mg 10/01/18 21:14 Tylenol PO Q4H PRN Pain MILD(1-3)/Fever >100.5/HAWK Apixaban 5 mg 10/03/18 22:00 Eliquis PO Q12HR JORGE Protocol Aspirin 325 mg 10/01/18 22:00 10/03/18 09:11 Aspirin PO 325 mg QDAY JORGE Administration Atorvastatin Calcium 40 mg 10/01/18 22:00 10/02/18 22:00 Lipitor PO 40 mg QHS JORGE Administration Diltiazem HCl 120 mg 10/01/18 22:00 10/02/18 22:00 Cardizem Cd PO 120 mg Q24H JORGE Administration Famotidine 20 mg 10/01/18 22:00 10/03/18 09:11 Pepcid PO 20 mg BID JORGE Administration Hydromorphone HCl 0.5 mg 10/01/18 21:14 Dilaudid IV Q3H PRN Pain , Severe (7-10) Heparin Sodium/Sodium Chloride 25,000 unit in 500 mls @ 27 mls/hr 10/02/18 16:00 10/03/18 11:10 Heparin/ 0.45% Nacl-25,000 Unit/500 Ml IV 1,450 units/hr TITR JORGE 29 mls/hr Administration Protocol 1,350 UNITS/HR Ibuprofen 600 mg 10/01/18 21:14 Ibuprofen PO Q6H PRN Pain, Mild (1-3) Ondansetron HCl 4 mg 10/01/18 21:14 Zofran IV Q8H PRN Nausea And Vomiting Sodium Chloride 10 ml 10/01/18 22:00 10/03/18 09:13 Sodium Chloride Flush Syringe 10 Ml IV 10 ml BID JORGE Administration Sodium Chloride 10 ml 10/01/18 21:14 Sodium Chloride Flush Syringe 10 Ml IV PRN PRN LINE FLUSH Nutrition/Malnutrition Assess - Dietary Evaluation Nutrition/Malnutrition Findings: Nutrition Notes Start: 10/03/18 13:57 Freq: Status: Active Protocol: Document 10/03/18 13:57 RM (Rec: 10/03/18 14:05 RM [id number]) Nutrition Notes Need for Assessment generated from: Low BMI Initial or Follow up Assessment Current Diagnosis Hypertension,Stroke Current Diet Cardiac Labs/Tests A1c 6.2 Pertinent Medications Reviewed Height 5 ft 11 in Weight 117.4 kg [place] Body Weight (kg) 78.18 BMI 36.1 Weight change and time frame Current wt obtained from [facility] Subjective/Other Information Screened for low BMI. Pt and pt family in room at time of visit. Pt does not appear to have ht of 6 in or BMI of 4886.8. Pt family spoke on behalf of pt d/t pt having difficulty speaking. Stated pt appetite is good and that he ate all of his breakfast. Noted lunch at bedside with 1/ 3 eaten. Pt family stated that pt was full from breakfast. Noted A1c 6.2 and CVA. Pt relative stated that she is familiar w/DM diet education but accepted handout. Reviewed CVA diet education and gave handout. Percent of energy/protein needs met: 47%/38% Burn Absent Trauma Absent #2 Nutrition Diagnosis Food and nutrition-related knowledge deficit Etiology lack of prior CVA education As Evidenced by Signs and Symptoms no prior knowledge of need for food and nutrition recommendations #1 Nutrition Diagnosis Inadequate oral intake Etiology fullness As Evidenced by Signs and Symptoms pt meeting 47% of calorie and 38% of protein needs Is patient on ventilator? No Is Patient Ambulatory and/or Out of Bed No REE-([place]-St. Jeor-confined to bed) 2358.564 Kcal/Kg value to use for calculation 17 Approximate Energy Requirements Using 1995 kcal/Kg Calculation Used for Recommendations Kcal/kg Additional Notes Protein Needs: 98-123g (1-1. 25g/kg 98kg adjBW) Fluid Needs: 1 ml/kcal Nutrition Intervention Change Diet Order: Continue current Add Supplement/Snack (indicate name/kcal Ensure Enlive Chocolate 1 /protein ) daily Provides kCal: 350 Provides Protein (gm) 20 Teaching Recipient Patient,Family Learning Readiness Good Teaching Methods Discussion,Handout Response to Teaching Verbalize understanding Education Handouts Provided Carbohydrate counting for people with diabetes. Stroke nutrition therapy. Barriers to Learning No Barriers RD phone number provided Yes Patient aware of follow up options Yes Goal #1 Meet at least 75% of calorie and protein needs via PO and ONS intakes Anticipated Discharge Needs: Cardiac diet Follow-Up By: 10/06/18 Additional Comments Follow for PO and ONS intakes
[2018-10-03] MEDS: CARDIZEM CD PO SCH (21:53)
[2018-10-03] MEDS: ELIQUIS PO SCH (23:30)
[2018-10-04] MEDS ORDERED: APRESOLINE IV PRN (02:44)
--- NOTE | 2018-10-04 04:50 | Event Note ---
Date: 10/04/18 pt experienced unwitnessed fall this morning. It is not clear as to whether there is head injury/ trauma associated with this fall. Ordered CT Head and Assessment of ROM post fall . Continue Neuro checks and fall precautions.
[2018-10-04 05:18] LABS: Hemoglobin 14.8 gm/dl (11.8-15.2)
[2018-10-04] MEDS: HEPARIN/ 0.45% NACL-25,000 UNIT/500 ML 25,000 UNIT/500 ML BAG IV SCH (06:28)
--- NOTE | 2018-10-04 06:41 | Cat Scan Report ---
CT HEAD WITHOUT CONTRAST INDICATION : Nonwitnessed fall. Possible head injury. TECHNIQUE: Axial, coronal and sagittal CT imaging was performed from the skull apex through the skul l base without contrast. All CT scans at this location are performed using CT dose reduction for ALA RA by means of automated exposure control. COMPARISON: CT of the head without contrast from 10/01/2018. FINDINGS: PARENCHYMA: The previously described areas of acute ischemia along the left cerebral hemisphere have evolved and appear larger in the interval without associated hemorrhage. No mass or midline shift is seen. No extra-axial collection is noted. VENTRICLES: Symmetric and normal in size. SOFT TISSUES: Soft tissues including the orbits appear normal. BONES: No acute osseous abnormality. SINUSES: No significant abnormality. ADDITIONAL FINDINGS: None. IMPRESSION: Interval evolution of the previously described areas of ischemia in the left cerebral hemisphere with out associated hemorrhage. No other acute findings indicative of a head injury. Signer Name: Santiago Antonio MD Signed: 10/04/2018 6:37 AM Workstation Name: [id number]
[2018-10-04] MEDS: ELIQUIS PO SCH ×2 (10:45→21:53)
[2018-10-04] MEDS: PEPCID PO SCH ×2 (10:45→21:53)
[2018-10-04] MEDS: ASPIRIN PO SCH (10:45)
--- NOTE | 2018-10-04 12:36 | Progress Note ---
Assessment and Plan Acute CVA initiated on Eliquis Left internal carotid artery occlusion Paroxysmal Atrial fibrillation currently in sinus rhythm. on Cardiazem for suppression. Hypertension An echocardiogram shows well-preserved left ventricular systolic function, ejection fraction 50-55%. Left atrial size is within normal limits. Recommend: Continue Cardizem for suppression of paroxysmal atrial fibrillation therapy. Otherwise, conservative cardiac management. Subjective Date of service: 10/04/18 Principal diagnosis: stroke Interval history: Patient has no cardiac complaints. ST/PT is at the bedside. Objective Vital Signs Temp Pulse Resp BP Pulse Ox 10/04/18 08:54 97.8 F 82 16 128/58 94 10/04/18 05:17 98.4 F 20 168/89 10/04/18 05:00 68 10/04/18 04:08 98.5 F 78 19 166/81 99 10/04/18 03:12 66 182/98 10/04/18 03:11 64 99 10/04/18 00:00 72 10/03/18 23:16 97.9 F 75 20 182/114 97 10/03/18 21:53 71 178/94 10/03/18 21:52 178/94 10/03/18 19:39 97.8 F 65 20 189/100 96 10/03/18 15:29 98.3 F 69 16 148/81 95 - Physical Examination General: No Apparent Distress HEENT: Positive: PERRL Neck: Positive: trachea midline Cardiac: Positive: Reg Rate and Rhythm Lungs: Positive: Decreased Breath Sounds Neuro: Positive: Grossly Intact Extremities: Absent: edema - Labs and Meds CBC 10/04/18 Range/Units 04:45 Hgb 14.8 (11.8-15.2) gm/dl Hct 42.0 (35.5-45.6) % Plt Count 159 (140-440) K/mm3
--- NOTE | 2018-10-04 16:34 | Progress Note ---
Assessment and Plan Assessment and plan: 68-year-old male patient was admitted through emergency room with right-sided weakness Neuro workup so far is consistent with acute CVA, patient also has paroxysmal atrial fibrillation with rapid ventricular rate -- CVA (cerebral vascular accident) Current Visit: Yes Status: Acute Acute CVA ; not a candidate for TPA Patient is left facial droop and slurred speech and dyspraxia On Stroke protocol. Neuro workup in progress Aspirin and Statin, PT,OT,ST and rehab Neurologist Dr Cardona evaluated the patient Evaluation recommendations noted and appreciated DCed heparin drip, started Eliquis 5 mg twice a day Neuro w/u so far: CT head without contrast; 3 areas of low density in lt centrum semiovale represent recent area of ischemia MRI brain; Patchy areas of ischemia seen in the deep white matter watershed area of the left cerebral hemisphere minimal involvement of the ganglion capsular region; Findings consistent with acute early subacute CVA MRA: Slow flow or no flow suggested in the left internal carotid artery Slow flow in distal right vertebral artery. hemo dynamically significant marked asymmetry in the MCA territory Carotid Doppler; right internal carotid artery less than 50 diameter stenosis Left internal carotid artery occlusion Echocardiogram:LV ejection fraction'50-55% No PFO --Lt Carotid artery stenosis/Occlusion Current Visit: Yes Status: Acute Plan to address problem: Antiplatelets and statins Vascular consult --Atrial fibrillation with RVR Current Visit: Yes Status: Acute Plan to address problem: Patient developed atrial fibrillation with RVR s/p Cardizem drip, changed to oral Cardizem Sinus rhythm today Cardiology evaluated --Hypertension Current Visit: Yes Status: Chronic Permissive hypertension per stroke protocol Continue antihypertensives --Hypokalemia Current Visit: Yes Status: Acute Plan to address problem: Potassium supplemented,corrected -- DVT prophylaxis Current Visit: Yes Status: Acute Plan to address problem: On heparin drip and GI prophylaxis ;Pepcid Physical therapy occupational therapy speech therapy Discharge planning. Case management; acute vs subacute rehabilitation vs home with home health When medically stable Plan of care is reviewed with the patient, his at the bedside And his nurse Disposition; follow clinically, PT OT acute vs subacute rehabilitation History Interval history: Patient seen and examined medical records reviewed Last significant events noted, patient had a fall, no external injuries Patient feels slightly better more alert and awake Remains dysarthric, vital signs reviewed Hospitalist Physical - Constitutional Vitals: Temp Pulse Resp BP Pulse Ox 97.7 F 82 16 141/83 95 10/04/18 12:13 10/04/18 12:13 10/04/18 12:13 10/04/18 12:13 10/04/18 12:13 General appearance: Present: no acute distress, well-nourished, other (right facial weakness) - EENT Eyes: Present: PERRL, EOM intact - Neck Neck: Present: supple, normal ROM - Respiratory Respiratory effort: normal Respiratory: bilateral: diminished, negative: rales, rhonchi, wheezing - Cardiovascular Rhythm: regular Heart Sounds: Present: S1 & S2 - Extremities Extremities: no ischemia, No edema - Abdominal General gastrointestinal: soft, non-tender, non-distended, normal bowel sounds - Integumentary Integumentary: Present: clear, warm - Psychiatric Psychiatric: appropriate mood/affect, other (. Dysarthria) - Neurologic Neurologic: other (residual weakness, right facial drooping, dysarthria) Results - Labs CBC & Chem 7: 10/04/18 04:45 10/03/18 06:57 Labs: Laboratory Last Values WBC 7.6 K/mm3 (4.5-11.0) 10/02/18 04:42 RBC 4.71 M/mm3 (3.65-5.03) 10/02/18 04:42 Hgb 14.8 gm/dl (11.8-15.2) 10/04/18 04:45 Hct 42.0 % (35.5-45.6) 10/04/18 04:45 MCV 91 fl (84-94) 10/02/18 04:42 MCH 31 pg (28-32) 10/02/18 04:42 MCHC 34 % (32-34) 10/02/18 04:42 RDW 13.7 % (13.2-15.2) 10/02/18 04:42 Plt Count 159 K/mm3 (140-440) 10/04/18 04:45 Lymph % (Auto) 21.4 % (13.4-35.0) 10/02/18 04:42 [place] % (Auto) 9.0 % (0.0-7.3) H 10/02/18 04:42 Eos % (Auto) 0.3 % (0.0-4.3) 10/02/18 04:42 Baso % (Auto) 0.5 % (0.0-1.8) 10/02/18 04:42 Lymph # 1.6 K/mm3 (1.2-5.4) 10/02/18 04:42 [place] # 0.7 K/mm3 (0.0-0.8) 10/02/18 04:42 Eos # 0.0 K/mm3 (0.0-0.4) 10/02/18 04:42 Baso # 0.0 K/mm3 (0.0-0.1) 10/02/18 04:42 Seg Neutrophils % 68.8 % (40.0-70.0) 10/02/18 04:42 Seg Neutrophils # 5.3 K/mm3 (1.8-7.7) 10/02/18 04:42 PT 14.6 Sec. (12.2-14.9) 10/02/18 16:09 INR 1.17 (0.87-1.13) H 10/02/18 16:09 APTT 25.8 Sec. (24.2-36.6) 10/02/18 16:09 17.1 Sec. (15.1-19.6) 10/01/18 16:27 Heparin Anti-Xa Level 1.67 U.I./ml (0.3-0.7) H 10/04/18 07:53 Sodium 139 mmol/L (137-145) 10/03/18 06:57 Potassium 3.5 mmol/L (3.6-5.0) L 10/03/18 06:57 Chloride 103.5 mmol/L (98-107) 10/03/18 06:57 Carbon Dioxide 27 mmol/L (22-30) 10/03/18 06:57 12 mmol/L 10/03/18 06:57 BUN 10 mg/dL (9-20) 10/03/18 06:57 0.8 mg/dL (0.8-1.5) 10/03/18 06:57 Estimated GFR > 60 ml/min 10/03/18 06:57 13 % 10/03/18 06:57 Glucose 123 mg/dL (75-100) H 10/03/18 06:57 POC Glucose 123 (70-105) H 10/02/18 16:08 6.2 % (4-6) H 10/01/18 16:27 Calcium 8.6 mg/dL (8.4-10.2) 10/03/18 06:57 Magnesium 2.20 mg/dL (1.7-2.3) 10/02/18 15:02 0.60 mg/dL (0.1-1.2) 10/02/18 04:42 AST 15 units/L (5-40) 10/02/18 04:42 ALT 9 units/L (7-56) 10/02/18 04:42 63 units/L (35-129) 10/02/18 04:42 144 units/L (55-170) 10/01/18 16:27 CK-MB (CK-2) 2.4 ng/mL (0.0-4.0) 10/01/18 16:27 CK-MB (CK-2) Rel Index 1.6 (0-4) 10/01/18 16:27 < 0.010 ng/mL (0.00-0.029) 10/01/18 16:27 7.4 g/dL (6.3-8.2) 10/02/18 04:42 3.8 g/dL (3.9-5) L 10/02/18 04:42 1.1 % 10/02/18 04:42 Triglycerides 57 mg/dL (2-149) 10/02/18 04:42 Cholesterol 127 mg/dL (50-199) 10/02/18 04:42 89 mg/dL (50-130) 10/02/18 04:42 37 mg/dL (40-59) L 10/02/18 04:42 3.43 % 10/02/18 04:42 TSH 1.010 mlU/mL (0.270-4.200) 10/02/18 15:02 Free T4 1.25 ng/dL (0.76-1.46) 10/02/18 15:02 Active Medications - Current Medications Current Medications: Generic Name Dose Route Start Last Admin Trade Name Freq PRN Reason Stop Dose Admin Acetaminophen 650 mg 10/01/18 21:14 Tylenol PO Q4H PRN Pain MILD(1-3)/Fever >100.5/HAWK Apixaban 5 mg 10/03/18 22:00 10/04/18 10:45 Eliquis PO 5 mg Q12HR JORGE Administration Protocol Aspirin 325 mg 10/01/18 22:00 10/04/18 10:45 Aspirin PO 325 mg QDAY JORGE Administration Atorvastatin Calcium 40 mg 10/01/18 22:00 10/03/18 21:53 Lipitor PO 40 mg QHS JORGE Administration Diltiazem HCl 120 mg 10/01/18 22:00 10/03/18 21:53 Cardizem Cd PO 120 mg Q24H JORGE Administration Famotidine 20 mg 10/01/18 22:00 10/04/18 10:45 Pepcid PO 20 mg BID JORGE Administration Guaifenesin 20 ml 10/04/18 13:41 Guaifenesin Dm Syrup PO Q4H PRN Cough Hydralazine HCl 10 mg 10/04/18 02:44 10/04/18 03:12 Apresoline IV 10 mg Q4HR PRN Administration Blood Pressure Hydromorphone HCl 0.5 mg 10/01/18 21:14 Dilaudid IV Q3H PRN Pain , Severe (7-10) Ibuprofen 600 mg 10/01/18 21:14 Ibuprofen PO Q6H PRN Pain, Mild (1-3) Ondansetron HCl 4 mg 10/01/18 21:14 Zofran IV Q8H PRN Nausea And Vomiting Sodium Chloride 10 ml 10/01/18 22:00 10/03/18 23:30 Sodium Chloride Flush Syringe 10 Ml IV 10 ml BID JORGE Administration Sodium Chloride 10 ml 10/01/18 21:14 Sodium Chloride Flush Syringe 10 Ml IV PRN PRN LINE FLUSH Nutrition/Malnutrition Assess - Dietary Evaluation Nutrition/Malnutrition Findings: Nutrition Notes Start: 10/03/18 13:5 7 Freq: Status: Active Protocol: Document 10/03/18 13:57 RM (Rec: 10/03/18 14:05 RM [id number]) Nutrition Notes Need for Assessment generated from: Low BMI Initial or Follow up Assessment Current Diagnosis Hypertension,Stroke Current Diet Cardiac Labs/Tests A1c 6.2 Pertinent Medications Reviewed Height 5 ft 11 in Weight 117.4 kg [place] Body Weight (kg) 78.18 BMI 36.1 Weight change and time frame Current wt obtained from [facility] Subjective/Other Information Screened for low BMI. Pt and pt family in room at time of visit. Pt does not appear to have ht of 6 in or BMI of 4886.8. Pt family spoke on behalf of pt d/t pt having difficulty speaking. Stated pt appetite is good and that he ate all of his breakfast. Noted lunch at bedside with 1/ 3 eaten. Pt family stated that pt was full from breakfast. Noted A1c 6.2 and CVA. Pt relative stated that she is familiar w/DM diet education but accepted handout. Reviewed CVA diet education and gave handout. Percent of energy/protein needs met: 47%/38% Burn Absent Trauma Absent #2 Nutrition Diagnosis Food and nutrition-related knowledge deficit Etiology lack of prior CVA education As Evidenced by Signs and Symptoms no prior knowledge of need for food and nutrition recommendations #1 Nutrition Diagnosis Inadequate oral intake Etiology fullness As Evidenced by Signs and Symptoms pt meeting 47% of calorie and 38% of protein needs Is patient on ventilator? No Is Patient Ambulatory and/or Out of Bed No REE-([facility]-confined to bed) 2358.564 Kcal/Kg value to use for calculation 17 Approximate Energy Requirements Using 1996 kcal/Kg Calculation Used for Recommendations Kcal/kg Additional Notes Protein Needs: 98-123g (1-1. 25g/kg 98kg adjBW) Fluid Needs: 1 ml/kcal Nutrition Intervention Change Diet Order: Continue current Add Supplement/Snack (indicate name/kcal Ensure Enlive Chocolate 1 /protein ) daily Provides kCal: 350 Provides Protein (gm) 20 Teaching Recipient Patient,Family Learning Readiness Good Teaching Methods Discussion,Handout Response to Teaching Verbalize understanding Education Handouts Provided Carbohydrate counting for people with diabetes. Stroke nutrition therapy. Barriers to Learning No Barriers RD phone number provided Yes Patient aware of follow up options Yes Goal #1 Meet at least 75% of calorie and protein needs via PO and ONS intakes Anticipated Discharge Needs: Cardiac diet Follow-Up By: 10/06/18 Additional Comments Follow for PO and ONS intakes
[2018-10-04] MEDS: SODIUM CHLORIDE FLUSH SYRINGE 10 ML IV SCH ×2 (18:52→21:53)
[2018-10-04] MEDS: CARDIZEM CD PO SCH (21:52)
[2018-10-05] MEDS: ELIQUIS PO SCH (09:39)
[2018-10-05] MEDS: PEPCID PO SCH (09:39)
[2018-10-05] MEDS: ASPIRIN PO SCH (09:39)
[2018-10-05] MEDS: SODIUM CHLORIDE FLUSH SYRINGE 10 ML IV SCH (09:40)
--- NOTE | 2018-10-05 10:22 | Discharge Summary ---
Providers - Providers Date of Admission: 10/01/18 21:14 Date of discharge: 10/05/18 Attending physician: SAGAR ESCOBAR 10/01/18 Consult to Case Management [CONS] Routine Services Needed at Discharge: Home Health Services Notified:: cm notified 10/01/18 21:14 Consult to Physician [CONS] Routine Comment: Consulting Provider: PEE BE Physician Instructions: Reason For Exam: A. fib with RVR 10/01/18 21:21 Occupational Therapy Evaluate and Treat [CONS] Routine Comment: Reason For Exam: Neuro deficits Physical Therapy Evaluation and Treat [CONS] Routine Comment: Reason For Exam: Neuro deficits 10/02/18 05:08 Speech Therapy Evaluation and Treat [CONS] Routine Reason For Exam: facial droop with some secretion drooling 10/02/18 11:18 Speech Therapy Evaluation and Treat [CONS] Routine Reason For Exam: Swallow evaln 10/02/18 11:29 Consult to Physician [CONS] Routine Comment: Consulting Provider: SANDRA WHITE Physician Instructions: Reason For Exam: Lt.Carotid artery occlusion/Acute CVA 10/02/18 15:13 Consult to Physician [CONS] Routine Comment: Consulting Provider: JT PRATER Physician Instructions: Reason For Exam: Acute CVA Primary care physician: MUARA REYES Hospitalization Condition: Critical Hospital course: 68-year-old male patient was admitted through emergency room with right-sided weakness Neuro workup so far is consistent with acute CVA, patient also has paroxysmal atrial fibrillation with rapid ventricular rate Discharge diagnosis: -- CVA (cerebral vascular accident) Current Visit: Yes Status: Acute Acute CVA ; not a candidate for TPA Patient is left facial droop and slurred speech and dyspraxia On Stroke protocol. Neuro workup in progress Aspirin and Statin, PT,OT,ST and rehab Neurologist Dr Prater evaluated the patient Evaluation recommendations noted and appreciated DCed heparin drip, started Eliquis 5 mg twice a day Neuro w/u so far: CT head without contrast; 3 areas of low density in lt centrum semiovale represent recent area of ischemia MRI brain; Patchy areas of ischemia seen in the deep white matter watershed area of the left cerebral hemisphere minimal involvement of the ganglion capsular region; Findings consistent with acute early subacute CVA MRA: Slow flow or no flow suggested in the left internal carotid artery Slow flow in distal right vertebral artery. hemo dynamically significant marked asymmetry in the MCA territory Carotid Doppler; right internal carotid artery less than 50 diameter stenosis Left internal carotid artery occlusion Echocardiogram:LV ejection fraction'50-55% No PFO --Lt Carotid artery stenosis/Occlusion Current Visit: Yes Status: Acute Plan to address problem: Antiplatelets and statins Vascular consulted --Atrial fibrillation with RVR Current Visit: Yes Status: Acute Plan to address problem: Patient developed atrial fibrillation with RVR s/p Cardizem drip, changed to oral Cardizem Sinus rhythm now Cardiology evaluated, placed on eliquis --Hypertension Current Visit: Yes Status: Chronic Permissive hypertension per stroke protocol Continue antihypertensives --Hypokalemia Current Visit: Yes Status: Acute Plan to address problem: Potassium supplemented,corrected -- DVT prophylaxis Current Visit: Yes Status: Acute Plan to address problem: On heparin drip and GI prophylaxis ;Pepcid Physical therapy occupational therapy speech therapy Discharge planning. Case management; acute vs subacute rehabilitation vs home with home health When medically stable Plan of care is reviewed with the patient, his at the bedside And his nurse Disposition; follow clinically, PT OT acute vs subacute rehabilitation Hospitalist Physical General appearance: Present: no acute distress, well-nourished, other (right facial weakness) - EENT Eyes: Present: PERRL, EOM intact - Neck Neck: Present: supple, normal ROM - Respiratory Respiratory effort: normal Respiratory: bilateral: diminished, negative: rales, rhonchi, wheezing - Cardiovascular Rhythm: regular Heart Sounds: Present: S1 & S2 - Extremities Extremities: no ischemia, No edema - Abdominal General gastrointestinal: soft, non-tender, non-distended, normal bowel sounds - Integumentary Integumentary: Present: clear, warm - Psychiatric Psychiatric: appropriate mood/affect, other (. Dysarthria) - Neurologic Neurologic: other (residual weakness, right facial drooping, dysarthria) Disposition: [id number]PT [facility]AB [facility]AC[facility] Time spent for discharge: 34 minutes Core Measure Documentation - Palliative Care Palliative Care/ Comfort Measures: Not Applicable - Core Measures Any of the following diagnoses?: stroke - Stroke Discharge Requirements Statin for LDL = or >70 mg/dl on DC: Yes Anticoag for atrial fib/atrial flutter: Yes Antithrombotic for ischemic stroke: Yes Exam - Constitutional Vitals: Temp Pulse Resp BP Pulse Ox 98.4 F 81 20 153/73 96 07/25/19 08:08 10/05/18 08:08 10/05/18 03:55 10/05/18 08:08 10/05/18 08:08 Plan Activity: fall precautions Weight Bearing Status: Non-Weight Bearing Diet: low fat, low salt Follow up with: MARUA REYES MD [Primary Care Provider] - 7 Days Prescriptions: Aspirin EC 81 mg PO QDAY #30 tablet. Lisinopril [Zestril TAB] 20 mg PO QDAY #30 tablet
--- NOTE | 2018-10-05 10:39 | Progress Note ---
Assessment and Plan Acute CVA initiated on Eliquis Left internal carotid artery occlusion Paroxysmal Atrial fibrillation currently in sinus rhythm. on Cardizem for suppression. Hypertension An echocardiogram shows well-preserved left ventricular systolic function, ejection fraction 50-55%. Left atrial size is within normal limits. Recommend: Continue Cardizem for suppression of paroxysmal atrial fibrillation therapy. Otherwise, conservative cardiac management. Subjective Date of service: 10/05/18 Principal diagnosis: stroke Interval history: Patient has no cardiac complaints. Stable sinus rhythm on telemetry. Objective Vital Signs Temp Pulse Resp BP Pulse Ox 10/05/18 08:08 98.4 F 81 153/73 96 10/05/18 05:00 78 10/05/18 03:55 98.2 F 84 20 183/77 94 10/04/18 23:23 98.9 F 78 20 167/94 97 10/04/18 21:52 84 161/78 10/04/18 21:00 71 10/04/18 19:45 98.1 F 84 19 161/78 97 10/04/18 18:10 98.2 F 85 16 183/92 96 10/04/18 12:13 97.7 F 82 16 141/83 95 - Physical Examination General: No Apparent Distress HEENT: Positive: PERRL Neck: Positive: trachea midline Cardiac: Positive: Reg Rate and Rhythm Lungs: Positive: Decreased Breath Sounds Neuro: Positive: Grossly Intact, Weakness Extremities: Absent: edema
[2018-10-05 11:50] VITALS: BP 159/80
== END 2018-10-05 13:27 | DRG 65 ==
LOC: ED 16:11 → 4A 21:14
PROVIDERS: ADMIT Internal Medicine; ATTEND Internal Medicine
DX: I63.412 Cerebral infarction due to embolism of left middle cerebral artery (principal); G81.91 Hemiplegia, unspecified affecting right dominant side; I10 Essential (primary) hypertension; E87.6 Hypokalemia; R29.810 Facial weakness; R47.81 Slurred speech; R27.8 Other lack of coordination; I48.0 Paroxysmal atrial fibrillation; R47.1 Dysarthria and anarthria; E86.0 Dehydration; I65.22 Occlusion and stenosis of left carotid artery; I65.01 Occlusion and stenosis of right vertebral artery
CPT/HCPCS: 36415; 70450; 70496; 70498; 70544; 70551; 80048; 80053; 80061; 82550; 82553; 82962; 83036; 83735; 84439; 84443; 84484; 85014; 85018; 85025; 85049; 85520; 85610; 85670; 85730; 93005; 93010; 93306; 93880; G0378; A9270-GY; J0360; J1644; J1650; J2405; J7030; Q9967

== ENCOUNTER 2018-10-05 10:45 | Inpatient (IN) | payer MEDICARE ==
[2018-10-05] MEDS ORDERED: DULCOLAX PR PRN (12:19)
[2018-10-05] MEDS ORDERED: MIRALAX 3350 PO PRN (12:19)
[2018-10-05] MEDS ORDERED: ZOFRAN ODT PO PRN (12:19)
[2018-10-05] MEDS ORDERED: TYLENOL PO PRN (12:19)
[2018-10-05] MEDS ORDERED: APRESOLINE PO PRN (12:21)
--- NOTE | 2018-10-05 13:22 | History and Physical Report ---
History of Present Illness Date: 10/05/18 Referring Facility: [facility] Date of admission: 10/05/2018 Chief Complaint: CVA History of present illness: 68-year-old male with uncertain onset of right facial droop and slurred speech. He presented to the ER and was found to have ischemic changes in the left cerebral hemisphere on MRI. On MRA the left internal carotid showed a slow or no flow. Also slower flow in the distal right vertebral artery. Vascular surgery was consulted and recommended medical optimization with no surgical intervention. Spelled to have new onset atrial fibrillation and was started on medications including oral anticoagulation and Cardizem. Patient is aphasic with likely both receptive and expressive components. Has been cleared by speech for regular diet. There was a mention of coughing during eating which w as related not to dysphagia but possibly due to a chronic cough. Notes stated the chest x-ray would be ordered however I do not see the order R results of set x-ray. We'll monitor the patient if he shows any signs of aspiration or coughing we will order a chest x-ray investigated further. Blood pressure medications were being held due to permissive hypertension. At this point we are 4 days out and should start treating hypertension. We'll look to restart medications in the morning if the patient still is showing signs of elevated blood pressure. Upon transfer to the rehabilitation floor, [facility] apparently attempted to transfer the patient and his knees buckled at which time he was slowly lowered to the floor. Nursing staff along with therapy and myself assisted gentleman into the bed. He denied any pain from the lowering to the floor. Inspection of skin by visualization and palpation throughout the back and buttocks did not elicit any tenderness or signs of injury. We'll continue to monitor and provide further workup if any signs of pain are injury appear. After the patient was medically stabilized they were transferred for further rehabilitation. All available medical records have been reviewed. Plan of care was discussed with patient and family. Past History Past Medical History: hypertension Past Surgical History: No surgical history Social history: lives with family, full code. denies: smoking, alcohol abuse, prescription drug abuse, IV drug use Family history: hypertension Medications and Allergies Allergies Allergy/AdvReac Type Severity Reaction Status Date / Time No Known Allergies Allergy Verified 10/01/18 16:20 Home Medications Medication Instructions Recorded Confirmed Last Taken Type amLODIPine [Norvasc] 5 mg PO DAILY 10/01/18 10/01/18 Unknown History Apixaban [Eliquis] 5 mg PO Q12HR #60 tablet 10/05/18 Unknown Rx Aspirin EC 81 mg PO QDAY #30 tablet. 10/05/18 Unknown Rx AtorvaSTATin [Lipitor] 40 mg PO QHS tablet 10/05/18 Unknown Rx Lisinopril [Zestril TAB] 20 mg PO QDAY #30 tablet 10/05/18 Unknown Rx dilTIAZem CD [Cardizem CD] 120 mg PO Q24H capsule 10/05/18 Unknown Rx Active Meds: Active Medications Acetaminophen (Tylenol) 650 mg PO Q6H PRN PRN Reason: Non Cardiac Pain or Temp>100.5 Apixaban (Eliquis) 5 mg PO Q12HR JORGE; Protocol Aspirin (Ecotrin) 325 mg PO QDAY JORGE Atorvastatin Calcium (Lipitor) 40 mg PO QHS JORGE Bisacodyl (Dulcolax) 10 mg MI QDAY PRN PRN Reason: Constipation Diltiazem HCl (Cardizem Cd) 120 mg PO QDAY JOREG Famotidine (Pepcid) 20 mg PO BID JORGE Hydralazine HCl (Apresoline) 10 mg PO Q6H PRN PRN Reason: Blood Pressure Ondansetron HCl (Zofran Odt) 4 mg PO Q8H PRN PRN Reason: Nausea And Vomiting Polyethylene Glycol (Miralax 3350) 17 gm PO QDAY PRN PRN Reason: Constipation Review of Systems All systems: negative (ROS negative for 12 systems except as noted below with pertinent positives and negatives. Difficult to fully obtain due to aphasia) Ears, nose, mouth and throat: no decreased hearing Cardiovascular: no chest pain, no palpitations, no rapid/irregular heart beat Respiratory: no cough, no shortness of breath Gastrointestinal: no nausea, no vomiting, no diarrhea, no constipation Genitourinary Male: no dysuria Musculoskeletal: no arm numbness/tingling, no leg numbness/tingling Integumentary: no rash, no pruritis, no redness Neurological: weakness, lack of coordination, aphasia, gait dysfunction, no head injury Exam - Exam Narrative exam: MUSCULOSKELETAL SPECIALTY EXAM CONSTITUTIONAL: Well developed, well nourished, obese, appropriately groomed. RIGHT hand dominant. LYMPHATIC: No appreciable abnormalities palpable in neck RESPIRATORY: Clear to auscultation bilaterally, with distant breath sounds, no increased work of breathing CARDIOVASCULAR: Regular Rate/ Rhythm, no swelling, edema or tenderness in BUE or BLE. Pulses palpable in all extremities. All extremities warm. GI: + bowel sounds, soft, NTTP, nondistended. INTEGUMENTARY: Normal, no lesion, rash, masses or bruising noted in extremities except for small mass on left hip, 1/2 dollar sized, with the feel of a lipoma. No lesion or wounds noted on back or head MUSCULOSKELETAL: BUE and BLE normal without defect, crepitus, subluxation, effusion, arthritic changes or TTP. No TTP along paraspinal or spinal area or buttocks. SA EF WE EE FF FA HF KE ADF EHL APF R 3/5 3/5 3/5 3/5 4-/5 3/5 3/5 3/5 3/5 3/5 3/5 L 4+/5 overall ROM decreased on right Tone normal NEURO: CN II : Visual islas full to confrontation CN II, III : PERRL CN III, IV, : EOMI CN V : Facial sensation intact CN VII : right facial droop and normal eye closure CN VIII : Hearing intact to finger rustle CN IX, X : Palate/uvula elevate midline, phonation normal CN XI : Intact shoulder shrug and head rotation CN XII : Tongue protrudes right Sensation intact in all extremities without extinction. Reflexes 3+ bilaterally at biceps, brachioradialis and patella. No clonus at ankles. Coordination intact in LUE, no dysmetria noted. No tremor noted in 4 extremities. Naming and repetition intact. Follows 1 step commands. Aphasia present, unable to name common objects, Y/N answers 50/50. Unable to show how to hold a pen, possibly apraxia as well. Does follow 1 step commands. Dysarthria present Dysphagia not appreciated Neglect not appreciated POSTURE and GAIT: Sitting posture good. Balance and Gait deferred until seen with therapy. PSYCH: Alert, cooperative, orientation unable to be tested due to aphasia, affect appears flat. Insight unable to be tested due to significant aphasia. - Labs CBC & Chem 7: 10/06/18 05:33 10/06/18 05:33 Assessment and Plan Assessment and plan: Patient was assessed and evaluated for Acute Inpatient Rehab Unit. Due to the patients above-mentioned medical complexity, along with decreased functional mobility and self care, this patient continues to require and be appropriate for a comprehensive, multidisciplinary [id number] rehabilitation program. These needs cannot be met in an outpatient or other less intensive setting. The patient would continue to benefit from skilled therapy intervention for at least 3 hours per day, five days a week, with techniques specific to the needs of the patient to improve function, activities of daily living, and reintegration into the community. The patient continues to require: -- OT to improve ROM, self-care, and learn use of adaptive equipment -- PT to improve strength and balance, functional transfers, and ambulation with energy conservation techniques to improve functional mobility -- MEDICAL TRANSCRIPTIONIST to address cognitive deficits, communication and swallowing ability -- 24 hour RN to ensure and prevent skin breakdown, promote progressive independence while ensuring safety, ensure education regarding medications, and incorporation of the rehabilitation at the bedside -- 24 hour Director Of Capital [employer] to coordinate this interdisciplinary program, and to manage/prevent complications as a result of the patients medical comorbidities. -Plan of care by day 4 -Weekly team conferences With such a program, there is a reasonable certainty that the goals individualized for this patient can be achieved within the specified length of stay. CVA with Right dominant hemiparesis: continue secondary stroke prevention. monitor for shoulder hand syndrome, post stroke depression, worsening neurologic condition. Therapy. On both Eliquis and ASA 325mg (failed ASA 81mg). Monitor for any signs of bleeding. Aphasia: Cont MEDICAL TRANSCRIPTIONIST for improvement and alternative communication skills AFib: continue cardizem for rate control and eliquis for a/c HTN: Will look to restart medications tomorrow and adjust as needed Z73.6 ADL dysfunction: OT will work on improving ability to perform ADLs (incl uding assistive devices) to increase independence and decrease caregiver burden and improve functional transfers and mobility training. R26.2 Difficulty walking: PT will work on gait training and proper use of assistive devices and advance as appropriate to use of stairs and outside ambulation on uneven surfaces. R26.81 Unsteadiness on feet: PT will work on improving static and dynamic sitting and standing balance as well as proper use of assistive devices to decrease risk of falls. R26.89 Abnormality of gait: PT will work to improve safety and efficiency of gait through neuromotor training and gait training along with instruction on proper use of assistive devices. M62.81 Muscle weakness: PT & OT will work on strengthening exercises to improve functional strength including mixture of closed and open kinetic chain exercises. R53.81 Debility: PT & OT will work on improving overall functional status to improve participation with ADLs, mobility and social involvement. R53.83 Fatigue: PT & OT will work on improving endurance through aerobic exercises and therapeutic activity while monitoring patients tolerance for activity and vital signs as needed. DVT ppx: Eliquis ( afib) Pain: Continue physical modalities in therapy and pain medications as needed to achieve functional pain control. Sleep: Monitor and address as needed. Bowel: Monitor and address as needed. PRN meds available Appetite: Monitor and address as needed. Discharge planning: Pending therapy progress and care plan meeting. Will continue discussion with therapy team, SW, patient and family. Restrictions/ Precautions: Falls, aspiration WB status: FWB Functional Hx: ADLs: Independent Cognition: Independent Mobility: No AD Barriers to Discharge: Decreased mobility and ability to perform self care, balance deficits, weakness Estimated Length of Stay: 14-21 days Discharge Destination: Home with family POST ADMISSION PHYSICIAN EVALUATION I have examined the patient and find that functional status, medical condition and appropriateness for IRF admission are essentially unchanged from those described in the preadmission screening. Will monitor for worsening neurologic function, poststroke depression, shoulder hand syndrome, DVT/PE, bowel and bladder complications and complications due to use of anticoagulant, HTN, AFib and electrolyte abnormalities. Will attempt to avoid occurrence of these issues or treat them if they present themselves.
[2018-10-05] MEDS: PEPCID PO SCH (21:29)
[2018-10-05] MEDS: ELIQUIS PO SCH (21:29)
[2018-10-06 06:07] LABS: Basophils % (Auto) 0.7 % (0.0-1.8); Eosinophils % (Auto) 0.6 % (0.0-4.3); Hematocrit 43.6 % (35.5-45.6); Hemoglobin 14.9 gm/dl (11.8-15.2); Lymphocytes # (Auto) 1.8 K/mm3 (1.2-5.4); Lymphocytes % (Auto) 25.3 % (13.4-35.0); Mean Corpuscular HGB Conc 34 % (32-34); Mean Corpuscular Volume 90 fl (84-94); Monocytes # (Auto) 0.8 K/mm3 (0.0-0.8); Monocytes % (Auto) 11.1 % (0.0-7.3); Platelet Count 174 K/mm3 (140-440); Red Blood Count 4.82 M/mm3 (3.65-5.03); Red Cell Distribution Width 13.8 % (13.2-15.2)
[2018-10-06 06:26] LABS: Alanine Aminotransferase 14 units/L (7-56); Albumin 3.9 g/dL (3.9-5); BUN/Creatinine Ratio 16; Blood Urea Nitrogen 14 mg/dL (9-20); Calcium 9.4 mg/dL (8.4-10.2); Hemolysis Index 12
[2018-10-06] MEDS: ELIQUIS PO SCH ×2 (09:12→21:29)
[2018-10-06] MEDS: ECOTRIN PO SCH (09:12)
[2018-10-06] MEDS: PEPCID PO SCH ×2 (09:12→21:29)
[2018-10-06] MEDS: CARDIZEM CD PO SCH (09:13)
[2018-10-06] MEDS: ZESTRIL PO SCH (12:53)
--- NOTE | 2018-10-06 13:26 | Progress Note ---
Subjective Date of service: 10/06/18 Principal diagnosis: CVA Interval history: 68-year-old male with uncertain onset of right facial droop and slurred speech. He presented to the ER and was found to have ischemic changes in the left cerebral hemisphere on MRI. On MRA the left internal carotid showed a slow or no flow. Also slower flow in the distal right vertebral artery. Vascular surgery was consulted and recommended medical optimization with no surgical intervention. Found to have new onset atrial fibrillation and was started on medications including oral anticoagulation and Cardizem. Patient is aphasic with likely both receptive and expressive components. Has been cleared by speech for regular diet. There was a mention of coughing during eating which was related not to dysphagia but possibly due to a chronic cough. Notes stated the chest x-ray would be ordered however I do not see the order or results of chest x-ray. We'll monitor the patient if he shows any signs of aspiration or coughing we will order a chest x-ray and investigate further. Blood pressure medications were being held due to permissive hypertension. At this point we are 4 days out and should start treating hypertension. We'll look to restart medications in the morning if the patient still is showing signs of elevated blood pressure. Patient is participating in therapy and making reasonable progress. Taking rest breaks as needed. +BM. Denies pain, palpitations, dyspnea, cough, N/V, or joint pain. Lisinopril started for HTN. Previously on amlodipine. Monitor and adjust medications. Aphasia unchanged. Some apraxia likely as well. All records, vitals, labs and medications were reviewed. No other issues per patient, nursing or therapy. Objective - Exam Narrative Exam: MUSCULOSKELETAL SPECIALTY EXAM CONSTITUTIONAL: Well developed, well nourished, obese, appropriately groomed. RIGHT hand dominant. RESPIRATORY: Clear to auscultation bilaterally, with distant breath sounds, no increased work of breathing CARDIOVASCULAR: Regular Rate/ Rhythm, no swelling, edema or tenderness in BUE or BLE. All ext remities warm. GI: + bowel sounds, soft, NTTP, nondistended. INTEGUMENTARY: Normal, no lesion, rash, masses or bruising noted in extremities except for small mass on left hip, 1/2 dollar sized, with the feel of a lipoma. MUSCULOSKELETAL: BUE and BLE normal without defect, crepitus, subluxation, effusion, arthritic changes or TTP. SA EF WE EE FF FA HF KE ADF EHL APF R 3/5 3/5 3/5 3/5 4-/5 3/5 3/5 3/5 3/5 3/5 3/5 L 4+/5 overall ROM decreased on right Tone normal NEURO: Right facial droop, Tongue protrudes slight right Sensation intact in all extremities without extinction. Reflexes 3+ bilaterally at biceps, brachioradialis and patella. No clonus at ankles. Coordination intact in LUE, no dysmetria noted. No tremor noted in 4 extremities. Naming and repetition intact. Follows 1 step commands. Aphasia present, unable to name common objects, Y/N answers 50/50. Unable to show how to hold a pen, possibly apraxia as well. Does follow 1 step commands. Dysarthria present Dysphagia not appreciated Neglect not appreciated POSTURE and GAIT: Sitting posture good. Balance and Gait deferred until seen with therapy. PSYCH: Alert, cooperative, orientation unable to be tested due to aphasia, affect appears flat. Insight unable to be tested due to significant aphasia. - Constitutional Vitals: Vital Signs - 12hr 10/06/18 10/06/18 10/06/18 04:39 07:20 12:00 Temperature 36.8 C 37.1 C 36.8 C Pulse Rate 78 80 79 Respiratory 18 18 18 Rate Blood Pressure 147/88 Blood Pressure 151/60 144/82 [Right] O2 Sat by Pulse 96 97 97 Oximetry - Allied health notes Allied health notes reviewed: nursing, PT, OT - Labs CBC & Chem 7: 10/09/18 08:04 10/09/18 08:04 Labs: Laboratory Results - last 72 hr 10/06/18 10/06/18 05:33 05:33 WBC 6.9 RBC 4.82 Hgb 14.9 Hct 43.6 MCV 90 MCH 31 MCHC 34 RDW 13.8 Plt Count 174 Lymph % (Auto) 25.3 [place] % (Auto) 11.1 H Eos % (Auto) 0.6 Baso % (Auto) 0.7 Lymph # 1.8 [place] # 0.8 Eos # 0.0 Baso # 0.0 Seg Neutrophils % 62.3 Seg Neutrophils # 4.3 Sodium 144 Potassium 3.6 Chloride 105.5 Carbon Dioxide 28 Anion Gap 14 BUN 14 Creatinine 0.9 Estimated GFR > 60 BUN/Creatinine Ratio 16 Glucose 125 H Calcium 9.4 Total Bilirubin 0.80 AST 25 ALT 14 Alkaline Phosphatase 67 Total Protein 7.7 Albumin 3.9 Albumin/Globulin Ratio 1.0 Assessment and Plan CVA with Right dominant hemiparesis: continue secondary stroke prevention. monitor for shoulder hand syndrome, post stroke depression, worsening neurologic condition. Therapy. On both Eliquis and ASA 325mg (failed ASA 81mg). Monitor for any signs of bleeding. Aphasia: Cont HOUSE PAINTER HELPER for improvement and alternative communication skills AFib: continue cardizem for rate control and eliquis for a/c HTN: lisinopril and monitor for effect Z73.6 ADL dysfunction: OT will work on improving ability to perform ADLs (including assistive devices) to increase independence and decrease caregiver burden and improve functional transfers and mobility training. R26.2 Difficulty walking: PT will work on gait training and proper use of ass istive devices and advance as appropriate to use of stairs and outside ambulation on uneven surfaces. R26.81 Unsteadiness on feet: PT will work on improving static and dynamic sitting and standing balance as well as proper use of assistive devices to decrease risk of falls. R26.89 Abnormality of gait: PT will work to improve safety and efficiency of gait through neuromotor training and gait training along with instruction on proper use of assistive devices. M62.81 Muscle weakness: PT & OT will work on strengthening exercises to improve functional strength including mixture of closed and open kinetic chain exercises. R53.81 Debility: PT & OT will work on improving overall functional status to improve participation with ADLs, mobility and social involvement. R53.83 Fatigue: PT & OT will work on improving endurance through aerobic exercises and therapeutic activity while monitoring patients tolerance for activity and vital signs as needed. DVT ppx: Eliquis ( afib) Pain: Continue physical modalities in therapy and pain medications as needed to achieve functional pain control. Sleep: Monitor and address as needed. Bowel: Monitor and address as needed. PRN meds available Appetite: Monitor and address as needed. Discharge planning: Pending therapy progress and care plan meeting. Will continue discussion with therapy team, SW, patient and family. Restrictions/ Precautions: Falls, aspiration WB status: FWB Functional Hx: ADLs: Independent Cognition: Independent Mobility: No AD Barriers to Discharge: Decreased mobility and ability to perform self care, balance deficits, weakness Estimated Length of Stay: 14-21 days Discharge Destination: Home with family
[2018-10-07] MEDS: ELIQUIS PO SCH ×3 (08:23→23:52)
[2018-10-07] MEDS: PEPCID PO SCH ×3 (08:23→23:52)
[2018-10-07] MEDS: ZESTRIL PO SCH ×2 (08:23→09:53)
[2018-10-07] MEDS: ECOTRIN PO SCH ×2 (08:23→09:54)
[2018-10-07] MEDS: CARDIZEM CD PO SCH ×2 (08:23→09:53)
--- NOTE | 2018-10-08 07:55 | IRU Plan of Care ---
Interdisciplinary Plan of Care - IP IRU INTERDISCIPLINARY PLAN: [facility] Inpatient Rehab Unit Plan of Care IRU Interdisciplinary Care Plan Start: 10/06/18 17:06 Freq: Status: Active Protocol: Document 10/08/18 00:06 TH (Rec: 10/08/18 00:12 TH [id number]) Interdisciplinary Problem List Interdisciplinary Problem List Interdisciplinary Problem List Impaired Bathing/Grooming, Query Text:Answers will Trigger Problems Impaired Dressing,Impaired and Outcomes on Worklist. Mobility,Impaired Transfers, Impaired Toileting,Impaired Comprehension,Impaired Expression,Impaired Problem Solving,Knowledge Deficits, Adjustment to Disability, Discharge Concerns,Impaired Home Management,Impaired Safety,Medications Education IRU Interdisciplinary Care Plan Therapy Services Therapy Services Will Include: Physical Therapy,Occupational Query Text:Patient will be seen for a Therapy,Speech Therapy minimum of 3 hours of daily therapy 5 out of 7 days a week. Therapy intensity may be adjusted within a 7 consecutive day period to effectively serve the individual needs of the patient. Treatment Frequency/Intensity/Duration Treatment Frequency 5x per week Treatment Intensity 3 hours per day Treatment Duration 14-21days Problem Area: Eating/Swallowing Eating/Swallowing Outcomes Eating/Swallowing Interventions Problem Area: Bathing/Grooming Bathing/Grooming Outcomes Improve [place] w/ Grooming,Improve [place] w/ Bathing Bathing/Grooming Interventions ADL Training,Use of Assistive Devices,Therapeutic Exercise, Therapeutic Activity, Neuromuscular Re-Education, Balance Work,Activity Tolerance Work,Patient/ Caregiver Education Problem Area: Dressing Dressing Outcomes Improve [place] w/ UB Dressing,Improve [place] w/ LB Dressing Dressing Interventions ADL Training,Use of Assistive Devices,Neuromuscular Re- Education,Therapeutic Exercise ,Balance Work,Modalities, Patient/Caregiver Education Problem Area: Mobility Mobility Outcomes Improve [place] w/ Bed Mobility,Improve [place] w/ Ambulation,Improve [place] w/ Stairs/Curb, Improve [place] w/ Wheelchair Mobility Interventions Therapeutic Exercise, Neuromuscular Re-Ed.,Visual/ Perceptual Training,Modalities ,Use of Assistive Devices, Patient/Caregiver Education, Bed Mobility Work,Gait Training,W/C Mobility Work Problem Area: Transfers Transfers Outcomes Improve [place] w/ Bed Transfers,Improve [place] w/ Toilet Transfers,Improve [place] w/ Tub/Shower Transfers Transfers Interventions Transfer Training,Therapeutic Exercise,Neuromuscular Re- Education,Activity Tolerance Work,Modalities,Use of Assistive Devices,Patient/ Caregiver Education Problem Area: Bowel/Bladder Managment Bowel/Bladder Outcomes Bowel/Bladder Interventions Problem Area: Toileting Toileting Outcomes Improve [place] w/ Toileting Toileting Interventions ADL Training,Balance Work, Patient/Caregiver Education Problem Area: Nutrition Nutrition Outcomes Nutrition Interventions Problem Area: Comprehension Comprehension Outcomes Comprehension Interventions Problem Area: Expression Expression Outcomes Improve Intelligibility, Improve Vocal Quality,Improve Verbalization Expression Interventions Expressive Language,Writing Tasks,Patient/Caregiver Education Problem Area: Problem Solving Problem Solving Outcomes Improve Problem Solving Problem Solving Interventions Cognitive Training,Safety Education,Patient/Caregiver Education Problem Area: Memory Memory Outcomes Memory Interventions Problem Area: Pain Management Pain Management Outcomes Pain Management Interventions Problem Area: Knowledge Deficits Knowledge Deficits Outcomes Verbalize Precautions, Verbalize Understanding of S/S of Stroke Knowledge Deficits Interventions Medication Use Education, Disease Management Education, Safety Education Problem Area: Skin/Tissue Integrity Skin/Tissue Integrity Outcomes Skin/Tissue Integrity Interventions Problem Area: Social Interaction Social Interaction Outcomes Social Interaction Interventions Problem Area: Adjustment to Disability Adjustment to Disability Outcomes Demonstrated Improved Motivation/Participation Adjustment to Disability Interventions Resource Education Problem Area: Discharge Concerns Discharge Concerns Outcomes Discharge w/ Necessary Equipment,Have Home Health/ Outpatient Services Discharge Concerns Interventions Discharge Planning,Equipment Assessment, Acquisition and Placement,Family/Caregiver Conference,Family/Caregiver Training Problem Area: Community Reintegration Community Reintegration Outcomes Community Reintegration Interventions Problem Area: Home Management Home Management Outcomes Improve [place] w/ Home Management Home Management Interventions Meal Preparation,Clothing Care ,Activity Tolerance Work, Leisure Skills Development, Shopping,Patient/Caregiver Education Problem Area: Safety Safety Outcomes Provide Safe Environment, Perform Selfcare Safely, Demonstrate Good Safety w/ Transfers/Mobility Safety Interventions Identify Fall Risk,[place] Pt. to Environment,Reduce Environmental Hazards,Neuro Check Assessment,Implement Mechanical Devices, i.e. Chair Alarm (Post Fall Update),Re- Educate Patient/Caregiver for Safety (Post Fall Update) Problem Area: Medication Education Medication Education Outcomes Patient/Caregiver will Verbalize Understanding of Medications Medication Education Interventions Explain Administration/Side Effects/Interactions Problem Area: Diabetes Education Diabetes Education Outcomes Diabetes Education Interventions Problem Area: Oxygenation Oxygenation Outcomes Oxygenation Interventions Problem Area: Cardiovascular Cardiovascular Outcomes Cardiovascular Interventions Physician Only Medical Prognosis and Rehabilitation Good prognosis and goo rehab potential to return to PLOF. Aphasic. Monitor and treat comorbidities. Potential (Completed by Physician) This plan of care has been developed based on the findings from the pre- admission assessment, post admission physician evaluation, information gathered from the assessments from all therapy disciplines and other pertinent clinicians. The plan of care has been reviewed and discussed in collaboration with the interdisciplinary team. The plan of care will be reviewed and updated at least weekly.
[2018-10-08] MEDS: CARDIZEM CD PO SCH (10:08)
[2018-10-08] MEDS: ELIQUIS PO SCH ×2 (10:08→22:43)
[2018-10-08] MEDS: ZESTRIL PO SCH (10:08)
[2018-10-08] MEDS: PEPCID PO SCH ×2 (10:08→22:43)
[2018-10-08] MEDS: ECOTRIN PO SCH (10:08)
[2018-10-09 08:19] LABS: Hematocrit 43.4 % (35.5-45.6); Mean Corpuscular HGB Conc 35 % (32-34); Mean Corpuscular Volume 90 fl (84-94); Platelet Count 192 K/mm3 (140-440); Red Blood Count 4.81 M/mm3 (3.65-5.03); Red Cell Distribution Width 13.7 % (13.2-15.2)
[2018-10-09 08:44] LABS: BUN/Creatinine Ratio 19; Blood Urea Nitrogen 19 mg/dL (9-20); Calcium 9.3 mg/dL (8.4-10.2); Hemolysis Index 19
[2018-10-09] MEDS: ECOTRIN PO SCH (09:20)
[2018-10-09] MEDS: ELIQUIS PO SCH ×2 (09:21→21:28)
[2018-10-09] MEDS: PEPCID PO SCH ×2 (09:21→21:28)
[2018-10-09] MEDS: CARDIZEM CD PO SCH (09:21)
[2018-10-09] MEDS: ZESTRIL PO SCH (09:22)
--- NOTE | 2018-10-09 11:24 | Progress Note ---
Subjective Date of service: 10/09/18 Principal diagnosis: CVA Interval history: 68-year-old male with uncertain onset of right facial droop and slurred speech. He presented to the ER and was found to have ischemic changes in the left cerebral hemisphere on MRI. On MRA the left internal carotid showed a slow or no flow. Also slower flow in the distal right vertebral artery. Vascular surgery was consulted and recommended medical optimization with no surgical intervention. Found to have new onset atrial fibrillation and was started on medications including oral anticoagulation and Cardizem. Patient is aphasic with likely both receptive and expressive components. Has been cleared by speech for regular diet. There was a mention of coughing during eating which was related not to dysphagia but possibly due to a chronic cough. Notes stated the chest x-ray would be ordered however I do not see the order or results of chest x-ray. We'll monitor the patient if he shows any signs of aspiration or coughing we will order a chest x-ray and investigate further. Blood pressure medications were being held due to permissive hypertension. At this point we are 4 days out and should start treating hypertension. We'll look to restart medications in the morning if the patient still is showing signs of elevated blood pressure. Patient is participating in therapy and making reasonable progress. Taking rest breaks as needed. -BM. Will schedule miralax. Denies pain, palpitations, d yspnea, cough, N/V, or joint pain. Monitor and adjust medications. Aphasia unchanged. Some apraxia likely as well. Y/N answers inconsistent All records, vitals, labs and medications were reviewed. No other issues per patient, nursing or therapy. Objective - Exam Narrative Exam: MUSCULOSKELETAL SPECIALTY EXAM CONSTITUTIONAL: Well developed, well nourished, obese, appropriately groomed. RIGHT hand dominant. RESPIRATORY: Clear to auscultation bilaterally, with distant breath sounds, no increased work of breathing CARDIOVASCULAR: Regular Rate/ Rhythm, no swelling, edema or tenderness in BUE or BLE. All extremities warm. GI: + bowel sounds, soft, NTTP, nondistended. INTEGUMENTARY: Normal, no lesion, rash, masses or bruising noted in extremities except for small mass on left hip, 1/2 dollar sized, with the feel of a lipoma. MUSCULOSKELETAL: BUE and BLE normal without defect, crepitus, subluxation, effusion, arthritic changes or TTP. SA EF WE EE FF FA HF KE ADF EHL APF R 3/5 3/5 3/5 3/5 4-/5 3/5 3/5 3/5 3/5 3/5 3/5 L 4+/5 overall ROM decreased on right Tone normal NEURO: Right facial droop, Tongue protrudes slight right Sensation intact in all extremities without extinction. Reflexes 3+ bilaterally at biceps, brachioradialis and patella. No clonus at ankles. Coordination intact in LUE, no dysmetria noted. No tremor noted in 4 extremities. Naming and repetition intact. Follows 1 step commands. Aphasia present, unable to name common objects, Y/N answers 50/50. Unable to show how to hold a pen, possibly apraxia as well. Dysarthria present Dysphagia not appreciated Neglect not appreciated POSTURE and GAIT: Sitting posture good. Balance and Gait deferred until seen with therapy. PSYCH: Alert, cooperative, orientation unable to be tested due to aphasia, affect appears flat. Insight unable to be tested due to significant aphasia. - Constitutional Vitals: Vital Signs - 12hr 10/09/18 10/09/18 10/09/18 09:07 09:21 09:22 Temperature 36.6 C Pulse Rate 73 73 73 Respiratory 18 Rate Blood Pressure 122/78 122/78 Blood Pressure 122/78 [Right] O2 Sat by Pulse 96 Oximetry - Allied health notes Allied health notes reviewed: nursing, PT, ST, OT FIMS assessment as documented by PT/OT/ST: Grooming Patient cleans teeth/dentures: Yes Patient barrow/brushes hair: Yes Patient washes, rinses and Yes dries face: Patient washes, rinses and No: Impaired R UE dries hands: Patient performs (no make-up/ 3/4 (75%) shaving): Grooming FIM Score 4. Minimal Assistance (Patient = 75% or more. Needs touching.) Toileting Toileting Device Urinal Patient able to: Adjust clothes before Patient able to perform: 1/3 (33%) Toileting FIM Score 2. Maximal Assistance (Patient = 25% or more) Social interaction/Memory/Problem solving Social Interaction FIM Score 6. Mod. [place] (Mostly appropriate. May need meds. No supv.) Memory FIM Score 4. Minimal Assistance (Recognizes and remembers 75-90%.) Problem Solving FIM Score 3. Moderate Assistance (Solves routine problems 50-74%.) Transfers Mode of Locomotion: Wheelchair Bed/Chair/Wheelchair Transfers 2. Maximal Assistance (Patient = 25% or more) FIM Score Toilet Transfers FIM Score 2. Maximal Assistance (Patient = 25% or more) Patient transferred to: Shower Shower Transfers FIM Score 2. Maximal Assistance (Patient = 25% or more) Locomotion- Stairs Stairs FIM Score 0. Activity does not occur Locomotion- walk/wheelchair Most Frequent Mode of Wheelchair Locomotion: Ambulation Distance 8 Walking FIM Score 1. Total Assistance (Pt. < 25%, 2 or more person assist, or <50 ft.) Wheelchair Propulsion Distance 120 Wheelchair FIM Score 3. Moderate Assistance (Patient = 50% or more. Minimum of 150 ft.) Eating Eating FIM Score 4. Minimal Assistance (Patient = 75% or more) Dressing-Upper body Patient retrieves clothing No items: Patient applies/removes UE No prosthesis or orthosis: Upper Body Dressing FIM Score 4. Minimal Assistance (Patient = 75% or more. Needs touching.) Dressing-lower body Patient retrieves clothing No items: Patient applies/removes LE No prosthesis or orthosis: Lower Body Dressing FIM Score 2. Maximal Assistance (Patient = 25% or more) - Labs CBC & Chem 7: 10/09/18 08:04 10/09/18 08:04 Labs: Laboratory Results - last 72 hr 10/08/18 10/09/18 10/09/18 16:05 08:04 08:04 WBC 6.1 RBC 4.81 Hgb 15.0 Hct 43.4 MCV 90 MCH 31 MCHC 35 H RDW 13.7 Plt Count 192 Sodium 141 Potassium 3.7 Chloride 102.1 Carbon Dioxide 29 Anion Gap 14 BUN 19 Creatinine 1.0 Estimated GFR > 60 BUN/Creatinine Ratio 19 Glucose 121 H POC Glucose 88 Calcium 9.3 Assessment and Plan CVA with Right dominant hemiparesis: continue secondary stroke prevention. monitor for shoulder hand syndrome, post stroke depression, worsening neurologic condition. Therapy. On both Eliquis and ASA 325mg (failed ASA 81mg). Monitor for any signs of bleeding. 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 R26.2 Difficulty walking: PT will work on gait training and proper use of isaías tive devices and advance as appropriate to use of stairs and outside ambulation on uneven surfaces. R26.81 Unsteadiness on feet: PT will work on improving static and dynamic sitting and standing balance as well as proper use of assistive devices to decrease risk of falls. R26.89 Abnormality of gait: PT will work to improve safety and efficiency of gait through neuromotor training and gait training along with instruction on proper use of assistive devices. M62.81 Muscle weakness: PT & OT will work on strengthening exercises to improve functional strength including mixture of closed and open kinetic chain exercises. R53.81 Debility: PT & OT will work on improving overall functional status to i mprove participation with ADLs, mobility and social involvement. R53.83 Fatigue: PT & OT will work on improving endurance through aerobic exercises and therapeutic activity while monitoring patients tolerance for activity and vital signs as needed. K59.00 Constipation: Sched Miralax, monitor DVT ppx: Eliquis ( afib) Pain: Continue physical modalities in therapy and pain medications as needed to achieve functional pain control. Sleep: Monitor and address as needed. Bowel: Monitor and address as needed. PRN meds available Appetite: Monitor and address as needed. Discharge planning: Pending therapy progress and care plan meeting. Will continue discussion with therapy team, SW, patient and family. Restrictions/ Precautions: Falls, aspiration WB status: FWB Functional Hx: ADLs: Independent Cognition: Independent Mobility: No AD Barriers to Discharge: Decreased mobility and ability to perform self care, balance deficits, weakness Estimated Length of Stay: 14-21 days Discharge Destination: Home with family
[2018-10-09] MEDS: MIRALAX 3350 PO SCH (12:00)
[2018-10-10] MEDS: MIRALAX 3350 PO SCH (08:53)
[2018-10-10] MEDS: ECOTRIN PO SCH (08:53)
[2018-10-10] MEDS: ZESTRIL PO SCH (08:53)
[2018-10-10] MEDS: PEPCID PO SCH ×2 (08:54→21:50)
[2018-10-10] MEDS: CARDIZEM CD PO SCH (08:54)
[2018-10-10] MEDS: ELIQUIS PO SCH ×2 (10:55→21:51)
[2018-10-10 11:09] LABS: Hematocrit 44.5 % (35.5-45.6); Hemoglobin 15.2 gm/dl (11.8-15.2); Mean Corpuscular HGB Conc 34 % (32-34); Mean Corpuscular Volume 90 fl (84-94); Platelet Count 230 K/mm3 (140-440); Red Blood Count 4.93 M/mm3 (3.65-5.03); Red Cell Distribution Width 13.6 % (13.2-15.2)
--- NOTE | 2018-10-10 20:52 | Progress Note ---
Subjective Date of service: 10/10/18 Principal diagnosis: CVA Interval history: 68-year-old male with uncertain onset of right facial droop and slurred speech. He presented to the ER and was found to have ischemic changes in the left cerebral hemisphere on MRI. On MRA the left internal carotid showed a slow or no flow. Also slower flow in the distal right vertebral artery. Vascular surgery was consulted and recommended medical optimization with no surgical intervention. Found to have new onset atrial fibrillation and was started on medications including oral anticoagulation and Cardizem. Patient is aphasic with likely both receptive and expressive components. Has been cleared by speech for regular diet. There was a mention of coughing during eating which was related not to dysphagia but possibly due to a chronic cough. Notes stated the chest x-ray would be ordered however I do not see the order or results of chest x-ray. We'll monitor the patient if he shows any signs of aspiration or coughing we will order a chest x-ray and investigate further. Blood pressure medications were being held due to permissive hypertension. At this point we are 4 days out and should start treating hypertension. We'll look to restart medications in the morning if the patient still is showing signs of elevated blood pressure. Patient is participating in therapy and making reasonable progress. Taking rest breaks as needed. Noted to have minor bleeding from gums this AM. CBC stable, noted this happened before. Eliquis was held. Adjusted dose of ASA. Restart Eliquis. -BM. Denies pain, palpitations, dyspnea, cough, N/V, or joint pain. Monitor and adjust medications. Aphasia unchanged. Y/N answers inconsistent. Continue therapy. All records, vitals, labs and medications were reviewed. No other issues per patient, nursing or therapy. Objective - Exam Narrative Exam: MUSCULOSKELETAL SPECIALTY EXAM No bleeding noted on exam. CONSTITUTIONAL: Well developed, well nourished, obese, appropriately groomed. RIGHT hand dominant. RESPIRATORY: Clear to auscultation bilaterally, with distant breath sounds, no increased work of breathing CARDIOVASCULAR: Regular Rate/ Rhythm, no swelling, edema or tenderness in BUE or BLE. All extremities warm. GI: + bowel sounds, soft, NTTP, nondistended. INTEGUMENTARY: Normal, no lesion, rash, masses or bruising noted in extremities except for small mass on left hip, 1/2 dollar sized, with the feel of a lipoma. MUSCULOSKELETAL: BUE and BLE normal without defect, crepitus, subluxation, effusion, arthritic changes or TTP. SA EF WE EE FF FA HF KE ADF EHL APF R 3/5 3/5 3/5 3/5 4-/5 3/5 3/5 3/5 3/5 3/5 3/5 L 4+/5 overall ROM decreased on right Tone normal NEURO: Right facial droop, Tongue protrudes slight right Sensation intact in all extremities without extinction. Reflexes 3+ bilaterally at biceps, brachioradialis and patella. No clonus at ankles. Coordination intact in LUE, no dysmetria noted. No tremor noted in 4 extremities. Naming and repetition intact. Follows 1 step commands. Aphasia present, unable to name common objects, Y/N answers 50/50. Unable to show how to hold a pen, possibly apraxia as well. Dysarthria present Dysphagia not appreciated Neglect not appreciated POSTURE and GAIT: Sitting posture good. Balance and Gait deferred until seen with therapy. PSYCH: Alert, cooperative, orientation unable to be tested due to aphasia, affect appears flat. Insight unable to be tested due to significant aphasia. - Constitutional Vitals: Vital Signs - 12hr 10/10/18 10/10/18 10/10/18 08:53 12:13 15:32 Temperature 36.7 C 36.2 C L Pulse Rate 83 79 66 Respiratory 20 16 Rate Blood Pressure 125/79 121/64 135/71 O2 Sat by Pulse 97 99 Oximetry 10/10/18 19:47 Temperature 36.9 C Pulse Rate 74 Respiratory 18 Rate Blood Pressure 135/76 O2 Sat by Pulse 88 Oximetry - Allied health notes Allied health notes reviewed: nursing, PT, ST, OT FIMS assessment as documented by PT/OT/ST: Grooming Patient cleans teeth/dentures: Yes Patient barrow/brushes hair: Yes Patient washes, rinses and Yes dries face: Patient washes, rinses and No: Impaired R UE dries hands: Patient performs (no make-up/ 3/4 (75%) shaving): Grooming FIM Score 4. Minimal Assistance (Patient = 75% or more. Needs touching.) Toileting Toileting Device Urinal Patient able to: Adjust clothes before Patient able to perform: 1/3 (33%) Toileting FIM Score 2. Maximal Assistance (Patient = 25% or more) Social interaction/Memory/Problem solving Social Interaction FIM Score 3. Moderate Assistance (Interacts appropriately 50-74%.) Memory FIM Score 4. Minimal Assistance (Recognizes and remembers 75-90%.) Problem Solving FIM Score 3. Moderate Assistance (Solves routine problems 50-74%.) Transfers Mode of Locomotion: Wheelchair Bed/Chair/Wheelchair Transfers 2. Maximal Assistance (Patient = 25% or more) FIM Score Toilet Transfers FIM Score 2. Maximal Assistance (Patient = 25% or more) Patient transferred to: Shower Shower Transfers FIM Score 2. Maximal Assistance (Patient = 25% or more) Locomotion- Stairs Stairs FIM Score 0. Activity does not occur Locomotion- walk/wheelchair Most Frequent Mode of Wheelchair Locomotion: Ambulation Distance 25 Walking FIM Score 1. Total Assistance (Pt. < 25%, 2 or more person assist, or <50 ft.) Wheelchair Propulsion Distance 150 Wheelchair FIM Score 3. Moderate Assistance (Patient = 50% or more. Minimum of 150 ft.) Eating Eating FIM Score 4. Minimal Assistance (Patient = 75% or more) Dressing-Upper body Patient retrieves clothing No items: Patient applies/removes UE No prosthesis or orthosis: Upper Body Dressing FIM Score 4. Minimal Assistance (Patient = 75% or more. Needs touching.) Dressing-lower body Patient retrieves clothing No items: Patient applies/removes LE No prosthesis or orthosis: Lower Body Dressing FIM Score 2. Maximal Assistance (Patient = 25% or more) - Labs CBC & Chem 7: 10/10/18 11:01 10/09/18 08:04 Labs: Laboratory Results - last 72 hr 10/08/18 10/09/18 10/09/18 16:05 08:04 08:04 WBC 6.1 RBC 4.81 Hgb 15.0 Hct 43.4 MCV 90 MCH 31 MCHC 35 H RDW 13.7 Plt Count 192 Sodium 141 Potassium 3.7 Chloride 102.1 Carbon Dioxide 29 Anion Gap 14 BUN 19 Creatinine 1.0 Estimated GFR > 60 BUN/Creatinine Ratio 19 Glucose 121 H POC Glucose 88 Calcium 9.3 10/09/18 10/10/18 17:26 11:01 WBC 7.4 RBC 4.93 Hgb 15.2 Hct 44.5 MCV 90 MCH 31 MCHC 34 RDW 13.6 Plt Count 230 Sodium Potassium Chloride Carbon Dioxide Anion Gap BUN Creatinine Estimated GFR BUN/Creatinine Ratio Glucose POC Glucose 131 H Calcium Assessment and Plan CVA with Right dominant hemiparesis: continue secondary stroke prevention. monitor for shoulder hand syndrome, post stroke depression, worsening neurologic condition. Therapy. On both Eliquis and ASA 81mg. Noted to have bleeding from gums by staff on ASA 325mg. 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 R26.2 Difficulty walking: PT will work on gait training and proper use of isaías tive devices and advance as appropriate to use of stairs and outside ambulation on uneven surfaces. R26.81 Unsteadiness on feet: PT will work on improving static and dynamic sitting and standing balance as well as proper use of assistive devices to decrease risk of falls. R26.89 Abnormality of gait: PT will work to improve safety and efficiency of gait through neuromotor training and gait training along with instruction on proper use of assistive devices. M62.81 Muscle weakness: PT & OT will work on strengthening exercises to improve functional strength including mixture of closed and open kinetic chain exercises. R53.81 Debility: PT & OT will work on improving overall functional status to i mprove participation with ADLs, mobility and social involvement. R53.83 Fatigue: PT & OT will work on improving endurance through aerobic exercises and therapeutic activity while monitoring patients tolerance for activity and vital signs as needed. K59.00 Constipation: Sched Miralax, monitor DVT ppx: Eliquis ( afib) Pain: Continue physical modalities in therapy and pain medications as needed to achieve functional pain control. Sleep: Monitor and address as needed. Bowel: Monitor and address as needed. PRN meds available Appetite: Monitor and address as needed. Discharge planning: Pending therapy progress and care plan meeting. Will continue discussion with therapy team, SW, patient and family. Restrictions/ Precautions: Falls, aspiration WB status: FWB Functional Hx: ADLs: Independent Cognition: Independent Mobility: No AD Barriers to Discharge: Decreased mobility and ability to perform self care, balance deficits, weakness Estimated Length of Stay: 14-21 days Discharge Destination: Home with family
[2018-10-11] MEDS: HALFPRIN EC PO SCH (08:43)
[2018-10-11] MEDS: MIRALAX 3350 PO SCH (08:43)
[2018-10-11] MEDS: ELIQUIS PO SCH ×3 (08:44→22:12)
[2018-10-11] MEDS: ZESTRIL PO SCH (08:44)
[2018-10-11] MEDS: CARDIZEM CD PO SCH (08:44)
[2018-10-11] MEDS: PEPCID PO SCH ×2 (08:44→22:12)
--- NOTE | 2018-10-11 09:13 | Progress Note ---
Subjective Date of service: 10/11/18 Principal diagnosis: CVA Interval history: 68-year-old male with uncertain onset of right facial droop and slurred speech. He presented to the ER and was found to have ischemic changes in the left cerebral hemisphere on MRI. On MRA the left internal carotid showed a slow or no flow. Also slower flow in the distal right vertebral artery. Vascular surgery was consulted and recommended medical optimization with no surgical intervention. Found to have new onset atrial fibrillation and was started on medications including oral anticoagulation and Cardizem. Patient is aphasic with likely both receptive and expressive components. Has been cleared by speech for regular diet. There was a mention of coughing during eating which was related not to dysphagia but possibly due to a chronic cough. Notes stated the chest x-ray would be ordered however I do not see the order or results of chest x-ray. We'll monitor the patient if he shows any signs of aspiration or coughing we will order a chest x-ray and investigate further. Blood pressure medications were being held due to permissive hypertension. At this point we are 4 days out and should start treating hypertension. We'll look to restart medications in the morning if the patient still is showing signs of elevated blood pressure. Patient is participating in therapy and making reasonable progress. Taking rest breaks as needed. No bleeding from gums noted today. +BM. No reports/signs of pain, palpitations, dyspnea, cough, N/V, or joint pain. Monitor and adjust medications. Aphasia unchanged. Y/N answers inconsistent. Continue therapy. All records, vitals, labs and medications were reviewed. No other issues per patient, nursing or therapy. Objective - Exam Narrative Exam: MUSCULOSKELETAL SPECIALTY EXAM No bleeding noted on exam. CONSTITUTIONAL: Well developed, well nourished, obese, appropriately groomed. RIGHT hand dominant. RESPIRATORY: Clear to auscultation bilaterally, with distant breath sounds, no increased work of breathing CARDIOVASCULAR: Regular Rate/ Rhythm, no swelling, edema or tenderness in BUE or BLE. All extremities warm. GI: + bowel sounds, soft, NTTP, nondistended. INTEGUMENTARY: Normal, no lesion, rash, masses or bruising noted in extremities except for small mass on left hip, 1/2 dollar sized, with the feel of a lipoma. MUSCULOSKELETAL: BUE and BLE normal without defect, crepitus, subluxation, effusion, arthritic changes or TTP. SA EF WE EE FF FA HF KE ADF EHL APF R 3/5 3/5 3/5 3/5 4-/5 3/5 3/5 3/5 3/5 3/5 3/5 L 4+/5 overall ROM decreased on right Tone normal NEURO: Right facial droop, Tongue protrudes slight right Sensation intact in all extremities without extinction. No tremor noted in 4 extremities. Follows 1 step commands. Aphasia present, unable to name common objects, Y/N answers 50/50. Unable to show how to hold a pen, possibly apraxia as well. Dysarthria present Dysphagia not appreciated Neglect not appreciated POSTURE and GAIT: Sitting posture good. Balance and Gait deferred until seen with therapy. PSYCH: Alert, cooperative, orientation unable to be tested due to aphasia, affect appears flat. Insight unable to be tested due to significant aphasia. - Constitutional Vitals: Vital Signs - 12hr 10/11/18 10/11/18 10/11/18 04:20 07:21 08:44 Temperature 36.6 C 36.4 C Pulse Rate 73 71 71 Respiratory 18 18 Rate Blood Pressure 130/72 134/63 134/63 O2 Sat by Pulse 94 96 Oximetry - Allied health notes Allied health notes reviewed: nursing, PT, ST, OT FIMS assessment as documented by PT/OT/ST: Grooming Patient cleans teeth/dentures: Yes Patient barrow/brushes hair: Yes Patient washes, rinses and Yes dries face: Patient washes, rinses and No: Impaired R UE dries hands: Patient performs (no make-up/ 3/4 (75%) shaving): Grooming FIM Score 4. Minimal Assistance (Patient = 75% or more. Needs touching.) Toileting Toileting Device Urinal Patient able to: Adjust clothes before Patient able to perform: 1/3 (33%) Toileting FIM Score 2. Maximal Assistance (Patient = 25% or more) Social interaction/Memory/Problem solving Social Interaction FIM Score 3. Moderate Assistance (Interacts appropriately 50-74%.) Memory FIM Score 4. Minimal Assistance (Recognizes and remembers 75-90%.) Problem Solving FIM Score 3. Moderate Assistance (Solves routine problems 50-74%.) Transfers Mode of Locomotion: Wheelchair Bed/Chair/Wheelchair Transfers 2. Maximal Assistance (Patient = 25% or more) FIM Score Toilet Transfers FIM Score 2. Maximal Assistance (Patient = 25% or more) Patient transferred to: Shower Shower Transfers FIM Score 2. Maximal Assistance (Patient = 25% or more) Locomotion- Stairs Stairs FIM Score 0. Activity does not occur Locomotion- walk/wheelchair Most Frequent Mode of Wheelchair Locomotion: Ambulation Distance 25 Walking FIM Score 1. Total Assistance (Pt. < 25%, 2 or more person assist, or <50 ft.) Wheelchair Propulsion Distance 150 Wheelchair FIM Score 3. Moderate Assistance (Patient = 50% or more. Minimum of 150 ft.) Eating Eating FIM Score 4. Minimal Assistance (Patient = 75% or more) Dressing-Upper body Patient retrieves clothing No items: Patient applies/removes UE No prosthesis or orthosis: Upper Body Dressing FIM Score 4. Minimal Assistance (Patient = 75% or more. Needs touching.) Dressing-lower body Patient retrieves clothing No items: Patient applies/removes LE No prosthesis or orthosis: Lower Body Dressing FIM Score 2. Maximal Assistance (Patient = 25% or more) - Labs CBC & Chem 7: 10/10/18 11:01 10/09/18 08:04 Labs: Laboratory Results - last 72 hr 10/08/18 10/09/18 10/09/18 16:05 08:04 08:04 WBC 6.1 RBC 4.81 Hgb 15.0 Hct 43.4 MCV 90 MCH 31 MCHC 35 H RDW 13.7 Plt Count 192 Sodium 141 Potassium 3.7 Chloride 102.1 Carbon Dioxide 29 Anion Gap 14 BUN 19 Creatinine 1.0 Estimated GFR > 60 BUN/Creatinine Ratio 19 Glucose 121 H POC Glucose 88 Calcium 9.3 10/09/18 10/10/18 10/11/18 17:26 11:01 07:26 WBC 7.4 RBC 4.93 Hgb 15.2 Hct 44.5 MCV 90 MCH 31 MCHC 34 RDW 13.6 Plt Count 230 Sodium Potassium Chloride Carbon Dioxide Anion Gap BUN Creatinine Estimated GFR BUN/Creatinine Ratio Glucose POC Glucose 131 H 122 H Calcium Assessment and Plan CVA with Right dominant hemiparesis: continue secondary stroke prevention. monitor for shoulder hand syndrome, post stroke depression, worsening neurologic condition. Therapy. On both Eliquis and ASA 81mg. Monitor for further bleeding Aphasia: Cont COUNSELING DIRECTOR for improvement and alternative communication skills AFib: continue cardizem for rate control and eliquis for a/c HTN: lisinopril and monitor for effect Z73.6 ADL dysfunction: OT will work on improving ability to perform ADLs (including assistive devices) to increase independence and decrease caregiver burden and improve functional transfers and mobility training. R26.2 Difficulty walking: PT will work on gait training and proper use of assi stive devices and advance as appropriate to use of stairs and outside ambulation on uneven surfaces. R26.81 Unsteadiness on feet: PT will work on improving static and dynamic sitting and standing balance as well as proper use of assistive devices to decrease risk of falls. R26.89 Abnormality of gait: PT will work to improve safety and efficiency of gait through neuromotor training and gait training along with instruction on proper use of assistive devices. M62.81 Muscle weakness: PT & OT will work on strengthening exercises to improve functional strength including mixture of closed and open kinetic chain exercises. R53.81 Debility: PT & OT will work on improving overall functional status to improve participation with ADLs, mobility and social involvement. R53.83 Fatigue: PT & OT will work on improving endurance through aerobic exercises and therapeutic activity while monitoring patients tolerance for activity and vital signs as needed. K59.00 Constipation: Sched Miralax, monitor DVT ppx: Eliquis ( afib) Pain: Continue physical modalities in therapy and pain medications as needed to achieve functional pain control. Sleep: Monitor and address as needed. Bowel: Monitor and address as needed. PRN meds available Appetite: Monitor and address as needed. Discharge planning: Pending therapy progress and care plan meeting. Will continue discussion with therapy team, SW, patient and family. Restrictions/ Precautions: Falls, aspiration WB status: FWB Functional Hx: ADLs: Independent Cognition: Independent Mobility: No AD Barriers to Discharge: Decreased mobility and ability to perform self care, balance deficits, weakness Estimated Length of Stay: 14-21 days Discharge Destination: Home with family
[2018-10-12 07:23] LABS: Hemoglobin 14.5 gm/dl (11.8-15.2); Mean Corpuscular HGB Conc 34 % (32-34); Mean Corpuscular Volume 91 fl (84-94); Platelet Count 209 K/mm3 (140-440); Red Blood Count 4.72 M/mm3 (3.65-5.03); Red Cell Distribution Width 13.5 % (13.2-15.2)
--- NOTE | 2018-10-12 09:34 | Progress Note ---
Subjective Date of service: 10/12/18 Principal diagnosis: CVA Interval history: 68-year-old male with uncertain onset of right facial droop and slurred speech. He presented to the ER and was found to have ischemic changes in the left cerebral hemisphere on MRI. On MRA the left internal carotid showed a slow or no flow. Also slower flow in the distal right vertebral artery. Vascular surgery was consulted and recommended medical optimization with no surgical intervention. Found to have new onset atrial fibrillation and was started on medications including oral anticoagulation and Cardizem. Patient is aphasic with likely both receptive and expressive components. Has been cleared by speech for regular diet. There was a mention of coughing during eating which was related not to dysphagia but possibly due to a chronic cough. Notes stated the chest x-ray would be ordered however I do not see the order or results of chest x-ray. We'll monitor the patient if he shows any signs of aspiration or coughing we will order a chest x-ray and investigate further. Blood pressure medications were being held due to permissive hypertension. At this point we are 4 days out and should start treating hypertension. We'll look to restart medications in the morning if the patient still is showing signs of elevated blood pressure. Patient is participating in therapy and making reasonable progress. Taking rest breaks as needed. No bleeding from gums noted today. +BM. No reports/signs of pain, palpitations, dyspnea, cough, N/V, or joint pain. Aphasia unchanged. Y/N answers inconsistent. Continue therapy. Needs oral care - OT will assist. Discussed in team conference. Making progress. Transfers improving, ambulating farther. Aphasia stable. All records, vitals, labs and medications were reviewed. No other issues per patient, nursing or therapy. Objective - Exam Narrative Exam: MUSCULOSKELETAL SPECIALTY EXAM No bleeding noted on exam. CONSTITUTIONAL: Well developed, well nourished, obese, appropriately groomed. RIGHT hand dominant. RESPIRATORY: Clear to auscultation bilaterally, with distant breath sounds, no increased work of breathing CARDIOVASCULAR: Regular Rate/ Rhythm, no swelling, edema or tenderness in BUE or BLE. All extremities warm. GI: + bowel sounds, soft, NTTP, nondistended. INTEGUMENTARY: Normal, no lesion, rash, masses or bruising noted in extremities except for small mass on left hip, 1/2 dollar sized, with the feel of a lipoma. MUSCULOSKELETAL: BUE and BLE normal without defect, crepitus, subluxation, effusion, arthritic changes or TTP. SA EF WE EE FF FA HF KE ADF EHL APF R 3/5 3/5 3/5 3/5 4-/5 3/5 3/5 3/5 3/5 3/5 3/5 L 4+/5 overall ROM decreased on right Tone normal NEURO: Right facial droop, Tongue protrudes slight right Sensation intact in all extremities without extinction. No tremor noted in 4 extremities. Follows 1 step commands. Aphasia present, unable to name common objects, Y/N answers 50/50. Unable to megan w how to hold a pen, possibly apraxia as well. Dysarthria present Dysphagia not appreciated Neglect not appreciated POSTURE and GAIT: Sitting posture good. Balance and Gait improving. PSYCH: Alert, cooperative, orientation unable to be tested due to aphasia, affect appears flat. Insight unable to be tested due to significant aphasia. - Constitutional Vitals: Vital Signs - 12hr 10/12/18 10/12/18 07:05 07:57 Temperature 36.5 C 36.4 C L Pulse Rate 81 82 Respiratory 20 18 Rate Blood Pressure 122/77 147/69 [Right] O2 Sat by Pulse 94 96 Oximetry - Allied health notes Allied health notes reviewed: nursing, PT, ST, OT FIMS assessment as documented by PT/OT/ST: Grooming Patient cleans teeth/dentures: Yes Patient barrow/brushes hair: Yes Patient washes, rinses and Yes dries face: Patient washes, rinses and No: Impaired R UE dries hands: Patient performs (no make-up/ 3/4 (75%) shaving): Grooming FIM Score 4. Minimal Assistance (Patient = 75% or more. Needs touching.) Toileting Toileting Device Urinal Patient able to: Adjust clothes before Patient able to perform: 1/3 (33%) Toileting FIM Score 2. Maximal Assistance (Patient = 25% or more) Social interaction/Memory/Problem solving Social Interaction FIM Score 3. Moderate Assistance (Interacts appropriately 50-74%.) Memory FIM Score 3. Moderate Assistance (Recognizes and remembers 50-74%.) Problem Solving FIM Score 3. Moderate Assistance (Solves routine problems 50-74%.) Transfers Mode of Locomotion: Wheelchair Bed/Chair/Wheelchair Transfers 3. Moderate Assistance (Patient = 50% or more. FIM Score Some lifting.) Toilet Transfers FIM Score 2. Maximal Assistance (Patient = 25% or more) Patient transferred to: Shower Shower Transfers FIM Score 2. Maximal Assistance (Patient = 25% or more) Locomotion- Stairs Stairs FIM Score 0. Activity does not occur Locomotion- walk/wheelchair Most Frequent Mode of Wheelchair Locomotion: Ambulation Distance 25 Walking FIM Score 1. Total Assistance (Pt. < 25%, 2 or more person assist, or <50 ft.) Wheelchair Propulsion Distance 150 Wheelchair FIM Score 4. Minimal Assistance (Patient = 75% or more. Minimum of 150 ft.) Eating Eating FIM Score 3. Moderate Assistance (Patient = 50% or more) Dressing-Upper body Patient retrieves clothing No items: Patient applies/removes UE No prosthesis or orthosis: Upper Body Dressing FIM Score 4. Minimal Assistance (Patient = 75% or more. Needs touching.) Dressing-lower body Patient retrieves clothing No items: Patient applies/removes LE No prosthesis or orthosis: Lower Body Dressing FIM Score 2. Maximal Assistance (Patient = 25% or more) - Labs CBC & Chem 7: 10/12/18 07:02 10/09/18 08:04 Labs: Laboratory Results - last 72 hr 10/09/18 10/10/18 10/11/18 17:26 11:01 07:26 WBC 7.4 RBC 4.93 Hgb 15.2 Hct 44.5 MCV 90 MCH 31 MCHC 34 RDW 13.6 Plt Count 230 POC Glucose 131 H 122 H 10/12/18 07:02 WBC 6.5 RBC 4.72 Hgb 14.5 Hct 43.0 MCV 91 MCH 31 MCHC 34 RDW 13.5 Plt Count 209 POC Glucose Assessment and Plan CVA with Right dominant hemiparesis: continue secondary stroke prevention. monitor for shoulder hand syndrome, post stroke depression, worsening neurologic condition. Therapy. On both Eliquis and ASA 81mg. Monitor for further bleeding Aphasia: Cont PLANE CAPTAIN for improvement and alternative communication skills AFib: continue cardizem for rate control and eliquis for a/c HTN: lisinopril and monitor for effect Z73.6 ADL dysfunction: OT will work on improving ability to perform ADLs (including assistive devices) to increase independence and decrease caregiver burden and improve functional transfers and mobility training. R26.2 Difficulty walking: PT will work on gait training and proper use of assistive devices and advance as appropriate to use of stairs and outside ambulation on uneven surfaces. R26.81 Unsteadiness on feet: PT will work on improving static and dynamic sitting and standing balance as well as proper use of assistive devices to decrease risk of falls. R26.89 Abnormality of gait: PT will work to improve safety and efficiency of gait through neuromotor training and gait training along with instruction on proper use of assistive devices. M62.81 Muscle weakness: PT & OT will work on strengthening exercises to improve functional strength including mixture of closed and open kinetic chain exercises. R53.81 Debility: PT & OT will work on improving overall functional status to improve participation with ADLs, mobility and social involvement. R53.83 Fatigue: PT & OT will work on improving endurance through aerobic exercises and therapeutic activity while monitoring patients tolerance for activity and vital signs as needed. K59.00 Constipation: Sched Miralax, monitor DVT ppx: Eliquis ( afib) Pain: Continue physical modalities in therapy and pain medications as needed to achieve functional pain control. Sleep: Monitor and address as needed. Bowel: Monitor and address as needed. PRN meds available Appetite: Monitor and address as needed. Discharge planning: Pending therapy progress and care plan meeting. Will continue discussion with therapy team, SW, patient and family. Restrictions/ Precautions: Falls, aspiration WB status: FWB Functional Hx: ADLs: Independent Cognition: Independent Mobility: No AD Barriers to Discharge: Decreased mobility and ability to perform self care, b alance deficits, weakness Estimated Length of Stay: 14-21 days Discharge Destination: Home with family
[2018-10-12] MEDS: CARDIZEM CD PO SCH (10:55)
[2018-10-12] MEDS: HALFPRIN EC PO SCH (10:56)
[2018-10-12] MEDS: PEPCID PO SCH ×2 (10:56→22:23)
[2018-10-12] MEDS: ZESTRIL PO SCH (10:57)
[2018-10-12] MEDS: MIRALAX 3350 PO SCH (10:57)
[2018-10-12] MEDS: ELIQUIS PO SCH ×2 (10:58→22:23)
[2018-10-13] MEDS: HALFPRIN EC PO SCH (08:28)
[2018-10-13] MEDS: CARDIZEM CD PO SCH (08:28)
[2018-10-13] MEDS: ZESTRIL PO SCH (08:28)
[2018-10-13] MEDS: ELIQUIS PO SCH ×2 (08:28→21:51)
[2018-10-13] MEDS: PEPCID PO SCH ×2 (08:29→21:51)
[2018-10-13] MEDS: MIRALAX 3350 PO SCH (08:30)
--- NOTE | 2018-10-13 09:01 | Progress Note ---
Subjective Date of service: 10/13/18 Principal diagnosis: CVA Interval history: 68-year-old male with uncertain onset of right facial droop and slurred speech. He presented to the ER and was found to have ischemic changes in the left cerebral hemisphere on MRI. On MRA the left internal carotid showed a slow or no flow. Also slower flow in the distal right vertebral artery. Vascular surgery was consulted and recommended medical optimization with no surgical intervention. Found to have new onset atrial fibrillation and was started on medications including oral anticoagulation and Cardizem. Patient is aphasic with likely both receptive and expressive components. Has been cleared by speech for regular diet. There was a mention of coughing during eating which was related not to dysphagia but possibly due to a chronic cough. Notes stated the chest x-ray would be ordered however I do not see the order or results of chest x-ray. We'll monitor the patient if he shows any signs of aspiration or coughing we will order a chest x-ray and investigate further. Blood pressure medications were being held due to permissive hypertension. At this point we are 4 days out and should start treating hypertension. We'll look to restart medications in the morning if the patient still is showing signs of elevated blood pressure. Patient is participating in therapy and making reasonable progress. Taking rest breaks as needed. No bleeding from gums noted today. +BM. No reports/signs of pain, palpitations, dyspnea, cough, N/V, or joint pain. Increased RUE tone today. Aphasia unchanged. Y/N answers inconsistent. Continue therapy. All records, vitals, labs and medications were reviewed. No other issues per patient, nursing or therapy. Objective - Exam Narrative Exam: MUSCULOSKELETAL SPECIALTY EXAM No bleeding noted on exam. CONSTITUTIONAL: Well developed, well nourished, obese, appropriately groomed. RIGHT hand dominant. RESPIRATORY: Clear to auscultation bilaterally, with distant breath sounds, no increased work of breathing CARDIOVASCULAR: Regular Rate/ Rhythm, no swelling, edema or tenderness in BUE or BLE. All extremities warm. GI: + bowel sounds, soft, NTTP, nondistended. INTEGUMENTARY: Normal, no lesion, rash, masses or bruising noted in extremities except for small mass on left hip, 1/2 dollar sized, with the feel of a lipoma. MUSCULOSKELETAL: BUE and BLE normal without defect, crepitus, subluxation, effusion, arthritic changes or TTP. SA EF WE EE FF FA HF KE ADF EHL APF R 3/5 3/5 3/5 3/5 4-/5 3/5 3/5 3/5 3/5 3/5 3/5 L 4+/5 overall ROM decreased on right Tone Increased RUE NEURO: Right facial droop, Tongue protrudes slight right Sensation intact in all extremities without extinction. No tremor noted in 4 extremities. Follows 1 step commands. Aphasia present, unable to name common objects, Y/N answers 50/50. Unable to show how to hold a pen, possibly apraxia as well. Dysarthria present Dysphagia not appreciated Neglect not appreciated POSTURE and GAIT: Sitting posture good. Balance and Gait improving. PSYCH: Alert, cooperative, orientation unable to be tested due to aphasia, affect appears flat. Insight unable to be tested due to significant aphasia. - Constitutional Vitals: Vital Signs - 12hr 10/12/18 10/13/18 10/13/18 22:00 05:16 07:41 Temperature 36.9 C 36.5 C Pulse Rate 79 76 Respiratory 20 18 Rate Blood Pressure 111/70 Blood Pressure 119/70 [Right] O2 Sat by Pulse 98 90 97 Oximetry 10/13/18 07:42 Temperature Pulse Rate 70 Respiratory Rate Blood Pressure Blood Pressure [Right] O2 Sat by Pulse 98 Oximetry - Allied health notes Allied health notes reviewed: nursing, PT, ST, OT FIMS assessment as documented by PT/OT/ST: Grooming Patient cleans teeth/dentures: Yes Patient barrow/brushes hair: Yes Patient washes, rinses and Yes dries face: Patient washes, rinses and No: Impaired R UE dries hands: Patient performs (no make-up/ 3/4 (75%) shaving): Grooming FIM Score 4. Minimal Assistance (Patient = 75% or more. Needs touching.) Toileting Toileting Device Urinal Patient able to: Adjust clothes before Patient able to perform: 1/3 (33%) Toileting FIM Score 2. Maximal Assistance (Patient = 25% or more) Social interaction/Memory/Problem solving Social Interaction FIM Score 6. Mod. [place] (Mostly appropriate. May need meds. No supv.) Memory FIM Score 5. Supervision (Needs cueing <10%, stressful/ unfamiliar situations.) Problem Solving FIM Score 5. Supervision (Needs cueing <10% to solve routine problems.) Transfers Mode of Locomotion: Wheelchair Bed/Chair/Wheelchair Transfers 3. Moderate Assistance (Patient = 50% or more. FIM Score Some lifting.) Toilet Transfers FIM Score 2. Maximal Assistance (Patient = 25% or more) Patient transferred to: Shower Shower Transfers FIM Score 2. Maximal Assistance (Patient = 25% or more) Locomotion- Stairs Stairs FIM Score 0. Activity does not occur Locomotion- walk/wheelchair Most Frequent Mode of Wheelchair Locomotion: Ambulation Distance 25 Walking FIM Score 1. Total Assistance (Pt. < 25%, 2 or more person assist, or <50 ft.) Wheelchair Propulsion Distance 300 Wheelchair FIM Score 5. Supervision (Minimum 150 ft. supv./cues or 50 ft. independently.) Eating Eating FIM Score 3. Moderate Assistance (Patient = 50% or more) Dressing-Upper body Patient retrieves clothing No items: Patient applies/removes UE No prosthesis or orthosis: Upper Body Dressing FIM Score 4. Minimal Assistance (Patient = 75% or more. Needs touching.) Dressing-lower body Patient retrieves clothing No items: Patient applies/removes LE No prosthesis or orthosis: Lower Body Dressing FIM Score 2. Maximal Assistance (Patient = 25% or more) - Labs CBC & Chem 7: 10/14/18 06:34 10/09/18 08:04 Labs: Laboratory Results - last 72 hr 10/10/18 10/11/18 10/12/18 11:01 07:26 07:02 WBC 7.4 6.5 RBC 4.93 4.72 Hgb 15.2 14.5 Hct 44.5 43.0 MCV 90 91 MCH 31 31 MCHC 34 34 RDW 13.6 13.5 Plt Count 230 209 POC Glucose 122 H Assessment and Plan CVA with Right dominant hemiparesis: continue secondary stroke prevention. monitor for shoulder hand syndrome, post stroke depression, worsening neurologic condition. Therapy. On both Eliquis and ASA 81mg. Monitor for bleeding Aphasia: Cont RELIABILITY ENGINEER for improvement and alternative communication skills AFib: continue cardizem for rate control and eliquis for a/c HTN: lisinopril and monitor for effect Increased RUE tone: discussed with OT, cont stretching and ROM. Will consider oral meds if needed Z73.6 ADL dysfunction: OT will work on improving ability to perform ADLs (including assistive devices) to increase independence and decrease caregiver burden and improve functional transfers and mobility training. R26.2 Difficulty walking: PT will work on gait training and proper use of assistive devices and advance as appropriate to use of stairs and outside ambulation on uneven surfaces. R26.81 Unsteadiness on feet: PT will work on improving static and dynamic sitting and standing balance as well as proper use of assistive devices to decrease risk of falls. R26.89 Abnormality of gait: PT will work to improve safety and efficiency of gait through neuromotor training and gait training along with instruction on p tereza use of assistive devices. M62.81 Muscle weakness: PT & OT will work on strengthening exercises to improve functional strength including mixture of closed and open kinetic chain exercises. R53.81 Debility: PT & OT will work on improving overall functional status to improve participation with ADLs, mobility and social involvement. R53.83 Fatigue: PT & OT will work on improving endurance through aerobic exercises and therapeutic activity while monitoring patients tolerance for activity and vital signs as needed. K59.00 Constipation: Sched Miralax, monitor DVT ppx: Eliquis ( afib) Pain: Continue physical modalities in therapy and pain medications as needed to achieve functional pain control. Sleep: Monitor and address as needed. Bowel: Monitor and address as needed. PRN meds available Appetite: Monitor and address as needed. Discharge planning: Pending therapy progress and care plan meeting. Will continue discussion with therapy team, SW, patient and family. Restrictions/ Precautions: Falls, aspiration WB status: FWB Functional Hx: ADLs: Independent Cognition: Independent Mobility: No AD Barriers to Discharge: Decreased mobility and ability to perform self care, balance deficits, weakness Estimated Length of Stay: 14-21 days Discharge Destination: Home with family originally planned, is now considering SNF due to lack of progress.
[2018-10-13] MEDS ORDERED: ZESTRIL PO SCH (11:53)
[2018-10-14 06:55] LABS: Hematocrit 42.3 % (35.5-45.6); Hemoglobin 14.7 gm/dl (11.8-15.2); Mean Corpuscular HGB Conc 35 % (32-34); Mean Corpuscular Volume 90 fl (84-94); Platelet Count 191 K/mm3 (140-440); Red Blood Count 4.73 M/mm3 (3.65-5.03); Red Cell Distribution Width 13.5 % (13.2-15.2)
[2018-10-14] MEDS: HALFPRIN EC PO SCH (11:18)
[2018-10-14] MEDS: PEPCID PO SCH ×2 (11:18→22:03)
[2018-10-14] MEDS: CARDIZEM CD PO SCH (11:19)
[2018-10-14] MEDS: ZESTRIL PO SCH (11:19)
[2018-10-14] MEDS: ELIQUIS PO SCH ×2 (11:20→22:03)
[2018-10-14] MEDS: MIRALAX 3350 PO SCH (11:20)
[2018-10-15] MEDS: CARDIZEM CD PO SCH (09:29)
[2018-10-15] MEDS: HALFPRIN EC PO SCH (09:30)
[2018-10-15] MEDS: PEPCID PO SCH ×2 (09:30→21:33)
[2018-10-15] MEDS: ZESTRIL PO SCH (09:31)
[2018-10-15] MEDS: ELIQUIS PO SCH ×2 (09:32→21:33)
[2018-10-15] MEDS: MIRALAX 3350 PO SCH (09:34)
[2018-10-16 06:57] LABS: Hemoglobin 15.1 gm/dl (11.8-15.2); Mean Corpuscular HGB Conc 34 % (32-34); Mean Corpuscular Volume 90 fl (84-94); Platelet Count 188 K/mm3 (140-440); Red Blood Count 4.87 M/mm3 (3.65-5.03); Red Cell Distribution Width 13.3 % (13.2-15.2)
[2018-10-16] MEDS: ZESTRIL PO SCH (10:34)
[2018-10-16] MEDS: CARDIZEM CD PO SCH (10:34)
[2018-10-16] MEDS: PEPCID PO SCH ×2 (10:34→22:05)
[2018-10-16] MEDS: ELIQUIS PO SCH ×2 (10:34→22:05)
[2018-10-16] MEDS: HALFPRIN EC PO SCH (10:34)
[2018-10-16] MEDS: MIRALAX 3350 PO SCH (10:35)
--- NOTE | 2018-10-16 15:38 | Progress Note ---
Subjective Date of service: 10/16/18 Principal diagnosis: CVA Interval history: 68-year-old male with uncertain onset of right facial droop and slurred speech. He presented to the ER and was found to have ischemic changes in the left cerebral hemisphere on MRI. On MRA the left internal carotid showed a slow or no flow. Also slower flow in the distal right vertebral artery. Vascular surgery was consulted and recommended medical optimization with no surgical intervention. Found to have new onset atrial fibrillation and was started on medications including oral anticoagulation and Cardizem. Patient is aphasic with likely both receptive and expressive components. Has been cleared by speech for regular diet. There was a mention of coughing during eating which was related not to dysphagia but possibly due to a chronic cough. Notes stated the chest x-ray would be ordered however I do not see the order or results of chest x-ray. We'll monitor the patient if he shows any signs of aspiration or coughing we will order a chest x-ray and investigate further. Blood pressure medications were being held due to permissive hypertension. At this point we are 4 days out and should start treating hypertension. We'll look to restart medications in the morning if the patient still is showing signs of elevated blood pressure. Patient is participating in therapy and making reasonable progress. Taking rest breaks as needed. No bleeding from gums noted today. +BM. No reports/signs of pain, palpitations, dyspnea, cough, N/V, or joint pain. Increased RUE and RLE tone today. Aphasia slight improvement. Y/N answers inconsistent. Continue therapy, stretching and ROM to decrease right sided tone. Spoke with concerning placement. She spoke with Anushka and stated she would not be able to take him home in current condition. Improvement has been very slow and at this point with lack of return in UE will likely not recover well. All records, vitals, labs and medications were reviewed. No other issues per patient, nursing or therapy. Objective - Exam Narrative Exam: MUSCULOSKELETAL SPECIALTY EXAM No bleeding noted on exam. CONSTITUTIONAL: Well developed, well nourished, obese, appropriately groomed. RIGHT hand dominant. RESPIRATORY: Clear to auscultation bilaterally, with distant breath sounds, no increased work of breathing CARDIOVASCULAR: Regular Rate/ Rhythm, no swelling, edema or tenderness in BUE or BLE. All extremities warm. GI: + bowel sounds, soft, NTTP, nondistended. INTEGUMENTARY: Normal, no lesion, rash, masses or bruising noted in extremities except for small mass on left hip, 1/2 dollar sized, with the feel of a lipoma. MUSCULOSKELETAL: BUE and BLE normal without defect, crepitus, subluxation, effusion, arthritic changes or TTP. SA EF WE EE FF FA HF KE ADF EHL APF R 3/5 3/5 3/5 3/5 4-/5 3/5 3/5 3/5 3/5 3/5 3/5 L 4+/5 overall ROM decreased on right Tone Increased RUE/RLE NEURO: Right facial droop, Tongue protrudes slight right Sensation intact in all extremities without extinction. No tremor noted in 4 extremities. Follows 1 step commands. Aphasia present, unable to name common objects, Y/N answers 50/50. Unable to show how to hold a pen, apraxia as well. Dysarthria present Dysphagia not appreciated Neglect not appreciated POSTURE and GAIT: Sitting posture good. Balance and Gait improving. Able to walk with HW and ModA PSYCH: Alert, cooperative, orientation unable to be tested due to aphasia, affect appears flat. Insight unable to be tested due to significant aphasia. - Constitutional Vitals: Vital Signs - 12hr 10/16/18 10/16/18 10/16/18 04:55 07:41 08:00 Temperature 36.4 C L 36.6 C Pulse Rate 66 72 73 Respiratory 20 18 Rate Blood Pressure 123/65 Blood Pressure 107/53 [Right] O2 Sat by Pulse 99 99 Oximetry 10/16/18 10/16/18 12:35 12:36 Temperature 36.6 C Pulse Rate 77 80 Respiratory 18 Rate Blood Pressure 102/73 Blood Pressure [Right] O2 Sat by Pulse 99 97 Oximetry - Allied health notes Allied health notes reviewed: nursing, PT, ST, OT FIMS assessment as documented by PT/OT/ST: Grooming Patient cleans teeth/dentures: Yes Patient barrow/brushes hair: Yes Patient washes, rinses and Yes dries face: Patient washes, rinses and Yes dries hands: Patient performs (no make-up/ 2/4 (50%) shaving): Grooming FIM Score 3. Moderate Assistance (Patient = 50% or more) Toileting Toileting Device Urinal Patient able to: Adjust clothes before Patient able to perform: 1/3 (33%) Toileting FIM Score 2. Maximal Assistance (Patient = 25% or more) Social interaction/Memory/Problem solving Social Interaction FIM Score 5. Supervision (Needs supv. <10%. Needs encouragement to participate.) Memory FIM Score 5. Supervision (Needs cueing <10%, stressful/ unfamiliar situations.) Problem Solving FIM Score 5. Supervision (Needs cueing <10% to solve routine problems.) Transfers Mode of Locomotion: Wheelchair Bed/Chair/Wheelchair Transfers 3. Moderate Assistance (Patient = 50% or more. FIM Score Some lifting.) Toilet Transfers FIM Score 2. Maximal Assistance (Patient = 25% or more) Patient transferred to: Shower Shower Transfers FIM Score 2. Maximal Assistance (Patient = 25% or more) Locomotion- Stairs Stairs FIM Score 0. Activity does not occur Locomotion- walk/wheelchair Most Frequent Mode of Wheelchair Locomotion: Ambulation Distance 60 Walking FIM Score 2. Maximal Assistance (Patient = 25% or more. Minimum of 50 ft.) Wheelchair Propulsion Distance 200 Wheelchair FIM Score 5. Supervision (Minimum 150 ft. supv./cues or 50 ft. independently.) Eating Eating FIM Score 6. Modified [place] (Special consistency or uses device.) Dressing-Upper body Patient retrieves clothing No items: Patient applies/removes UE No prosthesis or orthosis: Upper Body Dressing FIM Score 4. Minimal Assistance (Patient = 75% or more. Needs touching.) Dressing-lower body Patient retrieves clothing No items: Patient applies/removes LE No prosthesis or orthosis: Lower Body Dressing FIM Score 2. Maximal Assistance (Patient = 25% or more) - Labs CBC & Chem 7: 10/16/18 06:09 10/09/18 08:04 Labs: Laboratory Results - last 72 hr 10/14/18 10/16/18 10/16/18 06:34 06:09 07:46 WBC 5.9 5.9 RBC 4.73 4.87 Hgb 14.7 15.1 Hct 42.3 44.0 MCV 90 90 MCH 31 31 MCHC 35 H 34 RDW 13.5 13.3 Plt Count 191 188 POC Glucose 116 H Assessment and Plan CVA with Right dominant hemiparesis: continue secondary stroke prevention. monitor for shoulder hand syndrome, post stroke depression, worsening neurologic condition. Therapy. On both Eliquis and ASA 81mg. 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 Will consider oral meds if needed Z73.6 ADL dysfunction: OT will work on improving ability to perform ADLs (including assistive devices) to increase independence and decrease caregiver burden and improve functional transfers and mobility training. R26.2 Difficulty walking: PT will work on gait training and proper use of assistive devices and advance as appropriate to use of stairs and outside ambulation on uneven surfaces. R26.81 Unsteadiness on feet: PT will work on improving static and dynamic sitting and standing balance as well as proper use of assistive devices to decrease risk of falls. R26.89 Abnormality of gait: PT will work to improve safety and efficiency of gait through neuromotor training and gait training along with instruction on proper use of assistive devices. M62.81 Muscle weakness: PT & OT will work on strengthening exercises to improve functional strength including mixture of closed and open kinetic chain exercises. R53.81 Debility: PT & OT will work on improving overall functional status to improve participation with ADLs, mobility and social involvement. R53.83 Fatigue: PT & OT will work on improving endurance through aerobic exercises and therapeutic activity while monitoring patients tolerance for activity and vital signs as needed. K59.00 Constipation: Sched Miralax, monitor DVT ppx: Eliquis ( afib) Pain: Continue physical modalities in therapy and pain medications as needed to achieve functional pain control. Sleep: Monitor and address as needed. Bowel: Monitor and address as needed. PRN meds available Appetite: Monitor and address as needed. Discharge planning: Pending therapy progress and care plan meeting. Will continue discussion with therapy team, SW, patient and family. looking at SNF Restrictions/ Precautions: Falls, aspiration WB status: FWB Functional Hx: ADLs: Independent Cognition: Independent Mobility: No AD Barriers to Discharge: Decreased mobility and ability to perform self care, balance deficits, weakness Estimated Length of Stay: 14-21 days Discharge Destination: Home with family originally planned, is now considering SNF due to lack of progress.
[2018-10-17] MEDS: ELIQUIS PO SCH ×3 (08:09→22:26)
[2018-10-17] MEDS: ZESTRIL PO SCH (08:09)
[2018-10-17] MEDS: HALFPRIN EC PO SCH (08:09)
[2018-10-17] MEDS: CARDIZEM CD PO SCH (08:09)
[2018-10-17] MEDS: PEPCID PO SCH ×2 (08:09→22:27)
[2018-10-17] MEDS: MIRALAX 3350 PO SCH (08:10)
--- NOTE | 2018-10-17 11:32 | Progress Note ---
Subjective Date of service: 10/17/18 Principal diagnosis: CVA Interval history: 68-year-old male with uncertain onset of right facial droop and slurred speech. He presented to the ER and was found to have ischemic changes in the left cerebral hemisphere on MRI. On MRA the left internal carotid showed a slow or no flow. Also slower flow in the distal right vertebral artery. Vascular surgery was consulted and recommended medical optimization with no surgical intervention. Found to have new onset atrial fibrillation and was started on medications including oral anticoagulation and Cardizem. Patient is aphasic with likely both receptive and expressive components. Has been cleared by speech for regular diet. There was a mention of coughing during eating which was related not to dysphagia but possibly due to a chronic cough. Notes stated the chest x-ray would be ordered however I do not see the order or results of chest x-ray. We'll monitor the patient if he shows any signs of aspiration or coughing we will order a chest x-ray and investigate further. Blood pressure medications were being held due to permissive hypertension. At this point we are 4 days out and should start treating hypertension. We'll look to restart medications in the morning if the patient still is showing signs of elevated blood pressure. Patient is participating in therapy and making reasonable progress. Taking rest breaks as needed. No bleeding from gums noted today. +BM. No reports/signs of pain, palpitations, dyspnea, cough, N/V, or joint pain. Increased RUE and RLE tone today. Aphasia stable. Y/N answers inconsistent. Continue therapy, stretching and ROM to decrease right sided tone. Improvement has been very slow and at this point with lack of return in UE will likely not recover well. All records, vitals, labs and medications were reviewed. No other issues per patient, nursing or therapy. Objective - Exam Narrative Exam: MUSCULOSKELETAL SPECIALTY EXAM No bleeding noted on exam. CONSTITUTIONAL: Well developed, well nourished, obese, appropriately groomed. RIGHT hand dominant. RESPIRATORY: Clear to auscultation bilaterally, with distant breath sounds, no increased work of breathing CARDIOVASCULAR: Regular Rate/ Rhythm, no swelling, edema or tenderness in BUE or BLE. All extremities warm. GI: + bowel sounds, soft, NTTP, nondistended. INTEGUMENTARY: Normal, no lesion, rash, masses or bruising noted in extremities except for small mass on left hip, 1/2 dollar sized, with the feel of a lipoma. MUSCULOSKELETAL: BUE and BLE normal without defect, crepitus, subluxation, effusion, arthritic changes or TTP. SA EF WE EE FF FA HF KE ADF EHL APF R 3/5 3/5 3/5 3/5 4-/5 3/5 4-/5 3/5 3/5 3/5 3/5 L 4+/5 overall ROM decreased on right Tone Increased RUE/RLE NEURO: Right facial droop, Tongue protrudes slight right Sensation intact in all extremities without extinction. No tremor noted in 4 extremities. Follows 1 step commands. Aphasia present, unable to name common objects, Y/N answers 50/50. Unable to show how to hold a pen, apraxia as well. Dysarthria present Dysphagia not appreciated Neglect not appreciated POSTURE and GAIT: Sitting posture good. Balance and Gait improving. Able to walk with HW and ModA PSYCH: Alert, cooperative, orientation unable to be tested due to aphasia, affect appears flat. Insight unable to be tested due to significant aphasia. - Constitutional Vitals: Vital Signs - 12hr 10/16/18 10/16/18 10/17/18 23:51 23:52 04:51 Temperature 36.6 C 36.3 C L Pulse Rate 84 83 86 Respiratory 18 18 Rate Blood Pressure 130/58 115/58 O2 Sat by Pulse 98 97 97 Oximetry 10/17/18 10/17/18 07:53 07:55 Temperature 36.6 C Pulse Rate 79 Respiratory Rate Blood Pressure 117/58 O2 Sat by Pulse 95 Oximetry - Allied health notes Allied health notes reviewed: nursing, PT, ST, OT FIMS assessment as documented by PT/OT/ST: Grooming Patient cleans teeth/dentures: Yes Patient barrow/brushes hair: Yes Patient washes, rinses and Yes dries face: Patient washes, rinses and Yes dries hands: Patient performs (no make-up/ 2/4 (50%) shaving): Grooming FIM Score 3. Moderate Assistance (Patient = 50% or more) Toileting Toileting Device Urinal Patient able to: Adjust clothes before Patient able to perform: 1/3 (33%) Toileting FIM Score 2. Maximal Assistance (Patient = 25% or more) Social interaction/Memory/Problem solving Social Interaction FIM Score 5. Supervision (Needs supv. <10%. Needs encouragement to participate.) Memory FIM Score 5. Supervision (Needs cueing <10%, stressful/ unfamiliar situations.) Problem Solving FIM Score 5. Supervision (Needs cueing <10% to solve routine problems.) Transfers Mode of Locomotion: Wheelchair Bed/Chair/Wheelchair Transfers 3. Moderate Assistance (Patient = 50% or more. FIM Score Some lifting.) Toilet Transfers FIM Score 2. Maximal Assistance (Patient = 25% or more) Patient transferred to: Shower Shower Transfers FIM Score 2. Maximal Assistance (Patient = 25% or more) Locomotion- Stairs Stairs FIM Score 0. Activity does not occur Locomotion- walk/wheelchair Most Frequent Mode of Wheelchair Locomotion: Ambulation Distance 60 Walking FIM Score 2. Maximal Assistance (Patient = 25% or more. Minimum of 50 ft.) Wheelchair Propulsion Distance 200 Wheelchair FIM Score 5. Supervision (Minimum 150 ft. supv./cues or 5 0 ft. independently.) Eating Eating FIM Score 6. Modified [place] (Special consistency or uses device.) Dressing-Upper body Patient retrieves clothing No items: Patient applies/removes UE No prosthesis or orthosis: Upper Body Dressing FIM Score 4. Minimal Assistance (Patient = 75% or more. Needs touching.) Dressing-lower body Patient retrieves clothing No items: Patient applies/removes LE No prosthesis or orthosis: Lower Body Dressing FIM Score 2. Maximal Assistance (Patient = 25% or more) - Labs CBC & Chem 7: 10/16/18 06:09 10/09/18 08:04 Labs: Laboratory Results - last 72 hr 10/16/18 10/16/18 06:09 07:46 WBC 5.9 RBC 4.87 Hgb 15.1 Hct 44.0 MCV 90 MCH 31 MCHC 34 RDW 13.3 Plt Count 188 POC Glucose 116 H Assessment and Plan CVA with Right dominant hemiparesis: continue secondary stroke prevention. monitor for shoulder hand syndrome, post stroke depression, worsening neurologic condition. Therapy. On both Eliquis and ASA 81mg. Monitor for bleeding Aphasia: Cont [employer] for improvement and alternative communication skills AFib: continue cardizem for rate control and eliquis for a/c HTN: lisinopril and monitor for effect Increased RUE/RLE tone: discussed with OT, cont stretching and ROM. Will consider oral meds if needed Z73.6 ADL dysfunction: OT will work on improving ability to perform ADLs (including assistive devices) to increase independence and decrease caregiver burden and improve functional transfers and mobility training. R26.2 Difficulty walking: PT will work on gait training and proper use of assistive devices and advance as appropriate to use of stairs and outside ambulation on uneven surfaces. R26.81 Unsteadiness on feet: PT will work on improving static and dynamic sitting and standing balance as well as proper use of assistive devices to decrease risk of falls. R26.89 Abnormality of gait: PT will work to improve safety and efficiency of gait through neuromotor training and gait training along with instruction on proper use of assistive devices. M62.81 Muscle weakness: PT & OT will work on strengthening exercises to improve functional strength including mixture of closed and open kinetic chain exercises. R53.81 Debility: PT & OT will work on improving overall functional status to improve participation with ADLs, mobility and social involvement. R53.83 Fatigue: PT & OT will work on improving endurance through aerobic exercises and therapeutic activity while monitoring patients tolerance for activity and vital signs as needed. K59.00 Constipation: Sched Miralax, monitor DVT ppx: Eliquis ( afib) Pain: Continue physical modalities in therapy and pain medications as needed to achieve functional pain control. Sleep: Monitor and address as needed. Bowel: Monitor and address as needed. PRN meds available Appetite: Monitor and address as needed. Decreased, possibly depression related Discharge planning: Pending therapy progress and care plan meeting. Will continue discussion with therapy team, SW, patient and family. looking at SNF Restrictions/ Precautions: Falls, aspiration WB status: FWB Functional Hx: ADLs: Independent Cognition: Independent Mobility: No AD Barriers to Discharge: Decreased mobility and ability to perform self care, balance deficits, weakness Estimated Length of Stay: 14-21 days Discharge Destination: Home with family originally planned, is now considering SNF due to lack of progress.
[2018-10-18] MEDS: MIRALAX 3350 PO SCH (08:02)
[2018-10-18] MEDS: HALFPRIN EC PO SCH (08:56)
[2018-10-18] MEDS: PEPCID PO SCH ×2 (08:56→21:03)
[2018-10-18] MEDS: CARDIZEM CD PO SCH (08:56)
[2018-10-18] MEDS: ZESTRIL PO SCH (08:57)
[2018-10-18] MEDS: ELIQUIS PO SCH ×2 (10:03→21:03)
[2018-10-18 10:40] LABS: Bacteria,Urine 4+ /HPF (Negative); Mucus,Urine 1+ /HPF
[2018-10-18 10:50] LABS: Bilirubin,Urine NEG (Negative); Blood,Urine MOD (Negative); Color,Urine Yellow (Yellow); Protein,Urine <15 mg/dL mg/dL (Negative)
[2018-10-18] MEDS: LEVAQUIN PO SCH (15:08)
--- NOTE | 2018-10-18 16:13 | Progress Note ---
Subjective Date of service: 10/18/18 Principal diagnosis: CVA Interval history: 68-year-old male with uncertain onset of right facial droop and slurred speech. He presented to the ER and was found to have ischemic changes in the left cerebral hemisphere on MRI. On MRA the left internal carotid showed a slow or no flow. Also slower flow in the distal right vertebral artery. Vascular surgery was consulted and recommended medical optimization with no surgical intervention. Found to have new onset atrial fibrillation and was started on medications including oral anticoagulation and Cardizem. Patient is aphasic with likely both receptive and expressive components. Has been cleared by speech for regular diet. There was a mention of coughing during eating which was related not to dysphagia but possibly due to a chronic cough. Notes stated the chest x-ray would be ordered however I do not see the order or results of chest x-ray. We'll monitor the patient if he shows any signs of aspiration or coughing we will order a chest x-ray and investigate further. Blood pressure medications were being held due to permissive hypertension. At this point we are 4 days out and should start treating hypertension. We'll look to restart medications in the morning if the patient still is showing signs of elevated blood pressure. Patient is participating in therapy and making reasonable progress. Taking rest breaks as needed. No bleeding from gums noted today. +BM. Nurse noted foul urine from condom cath and sent sample - UTI. Started levaquin. Could be part of issue with increased tone. Also notified that he had fall prior night but no notification until now. Now apparent injury/no TTP over limbs/back/head. Monitor frequently and follow fall precautions. No reports/signs of pain, palpitations, dyspnea, cough, N/V, or joint pain. Increased RUE and RLE tone today. Aphasia stable. Y/N answers inconsistent. Continue therapy, stretching and ROM to decrease right sided tone. Improvement has been very slow and at this point with lack of return in UE will likely not recover well. All records, vitals, labs and medications were reviewed. No other issues per patient, nursing or therapy. Objective - Exam Narrative Exam: MUSCULOSKELETAL SPECIALTY EXAM No bleeding noted on exam. CONSTITUTIONAL: Well developed, well nourished, obese, appropriately groomed. RIGHT hand dominant. RESPIRATORY: Clear to auscultation bilaterally, with distant breath sounds, no increased work of breathing CARDIOVASCULAR: Regular Rate/ Rhythm, no swelling, edema or tenderness in BUE or BLE. All extremities warm. GI: + bowel sounds, soft, NTTP, nondistended. INTEGUMENTARY: Normal, no lesion, rash, masses or bruising noted in extremities except for small mass on left hip, 1/2 dollar sized, with the feel of a lipoma. MUSCULOSKELETAL: BUE and BLE normal without defect, crepitus, subluxation, effusion, arthritic changes or TTP. Additionally, NO TTP over back or skull SA EF WE EE FF FA HF KE ADF EHL APF R 3/5 3/5 3/5 3/5 4-/5 3/5 4-/5 3/5 3/5 3/5 3/5 L 4+/5 overall ROM decreased on right Tone Increased RUE/RLE NEURO: Right facial droop, Tongue protrudes slight right Sensation intact in all extremities without extinction. No tremor noted in 4 extremities. Follows 1 step commands. Aphasia present, unable to name common objects, Y/N answers 50/50. Unable to show how to hold a pen, apraxia as well. Dysarthria present Dysphagia not appreciated Neglect not appreciated POSTURE and GAIT: Sitting posture good. Balance and Gait improving. Able to walk with HW and ModA PSYCH: Alert, cooperative, orientation unable to be tested due to aphasia, affect appears flat. Insight unable to be tested due to significant aphasia. It seems he realizes he is not improving, will consider SSRI for PSD - Constitutional Vitals: Vital Signs - 12hr 10/18/18 10/18/18 10/18/18 05:27 05:28 07:38 Temperature 36.3 C L 36.3 C L 36.6 C Pulse Rate 70 72 Respiratory 20 20 18 Rate Blood Pressure 98/50 128/65 O2 Sat by Pulse 99 99 Oximetry 10/18/18 10/18/18 10/18/18 13:05 13:06 13:13 Temperature 36.8 C 37.0 C Pulse Rate 79 82 84 Respiratory 20 20 Rate Blood Pressure 125/63 O2 Sat by Pulse 98 97 95 Oximetry - Allied health notes Allied health notes reviewed: nursing, PT, ST, OT FIMS assessment as documented by PT/OT/ST: Grooming Patient cleans teeth/dentures: Yes Patient barrow/brushes hair: Yes Patient washes, rinses and Yes dries face: Patient washes, rinses and Yes dries hands: Patient performs (no make-up/ 2/4 (50%) shaving): Grooming FIM Score 3. Moderate Assistance (Patient = 50% or more) Toileting Toileting Device Urinal Patient able to: Adjust clothes before Patient able to perform: 1/3 (33%) Toileting FIM Score 2. Maximal Assistance (Patient = 25% or more) Social interaction/Memory/Problem solving Social Interaction FIM Score 6. Mod. [place] (Mostly appropriate. May need meds. No supv.) Memory FIM Score 6. Modified [place](Mild difficulty remembering people/routines.) Problem Solving FIM Score 5. Supervision (Needs cueing <10% to solve routine problems.) Transfers Mode of Locomotion: Wheelchair Bed/Chair/Wheelchair Transfers 4. Minimal Assistance (Patient = 75% or more. FIM Score Needs touching.) Toilet Transfers FIM Score 2. Maximal Assistance (Patient = 25% or more) Patient transferred to: Shower Shower Transfers FIM Score 2. Maximal Assistance (Patient = 25% or more) Locomotion- Stairs Stairs FIM Score 0. Activity does not occur Locomotion- walk/wheelchair Most Frequent Mode of Wheelchair Locomotion: Ambulation Distance 60 Walking FIM Score 2. Maximal Assistance (Patient = 25% or more. Minimum of 50 ft.) Wheelchair Propulsion Distance 200 Wheelchair FIM Score 5. Supervision (Minimum 150 ft. supv./cues or 50 ft. independently.) Eating Eating FIM Score 6. Modified [place] (Special consistency or uses device.) Dressing-Upper body Patient retrieves clothing No items: Patient applies/removes UE No prosthesis or orthosis: Upper Body Dressing FIM Score 4. Minimal Assistance (Patient = 75% or more. Needs touching.) Dressing-lower body Patient retrieves clothing No items: Patient applies/removes LE No prosthesis or orthosis: Lower Body Dressing FIM Score 2. Maximal Assistance (Patient = 25% or more) - Labs CBC & Chem 7: 10/16/18 06:09 10/09/18 08:04 Labs: Laboratory Results - last 72 hr 10/16/18 10/16/18 10/17/18 06:09 07:46 22:44 WBC 5.9 RBC 4.87 Hgb 15.1 Hct 44.0 MCV 90 MCH 31 MCHC 34 RDW 13.3 Plt Count 188 POC Glucose 116 H 113 H Urine Color Urine Turbidity Urine pH Ur Specific [place] Urine Protein Urine Glucose (UA) Urine Ketones Urine Blood Urine Nitrite Ur Reducing Substances Urine Bilirubin Urine Ictotest Urine Urobilinogen Ur Leukocyte Esterase Urine WBC (Auto) Urine RBC (Auto) U Epithel Cells (Auto) Urine Bacteria (Auto) Urine Mucus 10/18/18 Unknown WBC RBC Hgb Hct MCV MCH MCHC RDW Plt Count POC Glucose Urine Color Yellow Urine Turbidity Turbid Urine pH 5.0 Ur Specific [place] 1.025 Urine Protein <15 mg/dl Urine Glucose (UA) Neg Urine Ketones Neg Urine Blood Mod Urine Nitrite Pos Ur Reducing Substances Not Reportable Urine Bilirubin Neg Urine Ictotest Not Reportable Urine Urobilinogen 4.0 Ur Leukocyte Esterase Sm Urine WBC (Auto) 125.0 H Urine RBC (Auto) 46.0 U Epithel Cells (Auto) 2.0 Urine Bacteria (Auto) 4+ Urine Mucus 1+ Assessment and Plan CVA with Right dominant hemiparesis: continue secondary stroke prevention. monitor for shoulder hand syndrome, post stroke depression, worsening neurologic condition. Therapy. On both Eliquis and ASA 81mg. Monitor for bleeding Aphasia: Cont [employer] for improvement and alternative communication skills AFib: continue cardizem for rate control and eliquis for a/c HTN: lisinopril and monitor for effect Increased RUE/RLE tone: discussed with OT, cont stretching and ROM. Will consider oral meds if needed Z73.6 ADL dysfunction: OT will work on improving ability to perform ADLs (including assistive devices) to increase independence and decrease caregiver burden and improve functional transfers and mobility training. R26.2 Difficulty walking: PT will work on gait training and proper use of assistive devices and advance as appropriate to use of stairs and outside ambulation on uneven surfaces. R26.81 Unsteadiness on feet: PT will work on improving static and dynamic sitting and standing balance as well as proper use of assistive devices to decrease risk of falls. R26.89 Abnormality of gait: PT will work to improve safety and efficiency of gait through neuromotor training and gait training along with instruction on proper use of assistive devices. M62.81 Muscle weakness: PT & OT will work on strengthening exercises to improve functional strength including mixture of closed and open kinetic chain exercises. R53.81 Debility: PT & OT will work on improving overall functional status to improve participation with ADLs, mobility and social involvement. R53.83 Fatigue: PT & OT will work on improving endurance through aerobic exerci ses and therapeutic activity while monitoring patients tolerance for activity and vital signs as needed. K59.00 Constipation: Sched Miralax, monitor UTI: Levaquin and monitor for improvement DVT ppx: Eliquis ( afib) Pain: Continue physical modalities in therapy and pain medications as needed to achieve functional pain control. Sleep: Monitor and address as needed. Bowel: Monitor and address as needed. PRN meds available Appetite: Monitor and address as needed. Decreased, possibly depression related Discharge planning: Pending therapy progress and care plan meeting. Will continue discussion with therapy team, SW, patient and family. looking at SNF Restrictions/ Precautions: Falls, aspiration WB status: FWB Functional Hx: ADLs: Independent Cognition: Independent Mobility: No AD Barriers to Discharge: Decreased mobility and ability to perform self care, balance deficits, weakness Estimated Length of Stay: 14-21 days Discharge Destination: Home with family originally planned, is now considering SNF due to lack of progress.
[2018-10-19] MEDS: ZESTRIL PO SCH (10:40)
[2018-10-19] MEDS: CARDIZEM CD PO SCH (10:40)
[2018-10-19] MEDS: PEPCID PO SCH ×2 (10:40→22:16)
[2018-10-19] MEDS: LEVAQUIN PO SCH (10:40)
[2018-10-19] MEDS: HALFPRIN EC PO SCH (10:41)
[2018-10-19] MEDS: ELIQUIS PO SCH ×2 (10:42→22:16)
[2018-10-19] MEDS: MIRALAX 3350 PO SCH (10:45)
[2018-10-19 11:15] LABS: Hematocrit 46.6 % (35.5-45.6); Hemoglobin 15.4 gm/dl (11.8-15.2); Mean Corpuscular HGB Conc 33 % (32-34); Mean Corpuscular Volume 91 fl (84-94); Platelet Count 191 K/mm3 (140-440); Red Blood Count 5.13 M/mm3 (3.65-5.03); Red Cell Distribution Width 13.6 % (13.2-15.2)
[2018-10-19] MEDS: ZOLOFT PO SCH (11:33)
[2018-10-19 11:45] LABS: BUN/Creatinine Ratio 15; Blood Urea Nitrogen 18 mg/dL (9-20); Calcium 9.9 mg/dL (8.4-10.2); Hemolysis Index 0
--- NOTE | 2018-10-19 16:35 | Progress Note ---
Subjective Date of service: 10/19/18 Principal diagnosis: CVA Interval history: 68-year-old male with uncertain onset of right facial droop and slurred speech. He presented to the ER and was found to have ischemic changes in the left cerebral hemisphere on MRI. On MRA the left internal carotid showed a slow or no flow. Also slower flow in the distal right vertebral artery. Vascular surgery was consulted and recommended medical optimization with no surgical intervention. Found to have new onset atrial fibrillation and was started on medications including oral anticoagulation and Cardizem. Patient is aphasic with likely both receptive and expressive components. Has been cleared by speech for regular diet. There was a mention of coughing during eating which was related not to dysphagia but possibly due to a chronic cough. Notes stated the chest x-ray would be ordered however I do not see the order or results of chest x-ray. We'll monitor the patient if he shows any signs of aspiration or coughing we will order a chest x-ray and investigate further. Blood pressure medications were being held due to permissive hypertension. At this point we are 4 days out and should start treating hypertension. We'll look to restart medications in the morning if the patient still is showing signs of elevated blood pressure. Patient is participating in therapy and making reasonable progress. Taking rest breaks as needed. No bleeding from gums noted today. +BM. Start zoloft for PSD. Monitor frequently and follow fall precautions. No reports/signs of pain, palpitations, dyspnea, cough, N/V, or joint pain. Increased RUE and RLE tone today. Aphasia stable. Y/N answers inconsistent. Continue therapy, stretching and ROM to decrease right sided tone. Improvement has been very slow and at this point with lack of return in UE will likely not recover well. Discussed in Team confernece. Slow progress. Will need longer rehab timeframe. is not able to provide level of care he needs at home. All records, vitals, labs and medications were reviewed. No other issues per patient, nursing or therapy. Objective - Exam Narrative Exam: MUSCULOSKELETAL SPECIALTY EXAM No bleeding noted on exam. CONSTITUTIONAL: Well developed, well nourished, obese, appropriately groomed. RIGHT hand dominant. RESPIRATORY: Clear to auscultation bilaterally, with distant breath sounds, no increased work of breathing CARDIOVASCULAR: Regular Rate/ Rhythm, no swelling, edema or tenderness in BUE or BLE. All extremities warm. GI: + bowel sounds, soft, NTTP, nondistended. INTEGUMENTARY: Normal, no lesion, rash, masses or bruising noted in extremities except for small mass on left hip, 1/2 dollar sized, with the feel of a lipoma. MUSCULOSKELETAL: BUE and BLE normal without defect, crepitus, subluxation, effusion, arthritic changes or TTP. Additionally, NO TTP over back or skull SA EF WE EE FF FA HF KE ADF EHL APF R 3/5 3/5 3/5 3/5 4-/5 3/5 4-/5 3/5 3/5 3/5 3/5 L 4+/5 overall ROM decreased on right Tone Increased RUE/RLE NEURO: Right facial droop, Tongue protrudes slight right Sensation intact in all extremities without extinction. No tremor noted in 4 extremities. Follows 1 step commands. Aphasia present, unable to name common objects, Y/N answers 50/50. Unable to show how to hold a pen, apraxia as well. Dysarthria present Dysphagia not appreciated Neglect not appreciated POSTURE and GAIT: Sitting posture good. Balance and Gait improving. Able to walk with HW and ModA PSYCH: Alert, cooperative, orientation unable to be tested due to aphasia, affect appears flat. Insight unable to be tested due to significant aphasia. It seems he realizes he is not improving, will start zoloft for PSD - Constitutional Vitals: Vital Signs - 12hr 10/19/18 10/19/18 10/19/18 05:03 05:09 07:42 Temperature 36.7 C 36.8 C 37.1 C Pulse Rate 96 H 65 82 Respiratory 18 17 18 Rate Blood Pressure 123/58 133/59 Blood Pressure 101/56 [Right] O2 Sat by Pulse 97 96 97 Oximetry 10/19/18 11:57 Temperature 36.6 C Pulse Rate 63 Respiratory 18 Rate Blood Pressure 133/74 Blood Pressure [Right] O2 Sat by Pulse 93 Oximetry - Allied health notes Allied health notes reviewed: nursing, PT, ST, OT FIMS assessment as documented by PT/OT/ST: Grooming Patient cleans teeth/dentures: Yes Patient barrow/brushes hair: Yes Patient washes, rinses and Yes dries face: Patient washes, rinses and Yes dries hands: Patient performs (no make-up/ 2/4 (50%) shaving): Grooming FIM Score 3. Moderate Assistance (Patient = 50% or more) Toileting Toileting Device Urinal Patient able to: Adjust clothes before Patient able to perform: 1/3 (33%) Toileting FIM Score 2. Maximal Assistance (Patient = 25% or more) Social interaction/Memory/Problem solving Social Interaction FIM Score 6. Mod. [place] (Mostly appropriate. May need meds. No supv.) Memory FIM Score 5. Supervision (Needs cueing <10%, stressful/ unfamiliar situations.) Problem Solving FIM Score 5. Supervision (Needs cueing <10% to solve routine problems.) Transfers Mode of Locomotion: Wheelchair Bed/Chair/Wheelchair Transfers 3. Moderate Assistance (Patient = 50% or more. FIM Score Some lifting.) Toilet Transfers FIM Score 2. Maximal Assistance (Patient = 25% or more) Patient transferred to: Shower Shower Transfers FIM Score 2. Maximal Assistance (Patient = 25% or more) Locomotion- Stairs Stairs FIM Score 0. Activity does not occur Locomotion- walk/wheelchair Most Frequent Mode of Wheelchair Locomotion: Ambulation Distance 60 Walking FIM Score 2. Maximal Assistance (Patient = 25% or more. Minimum of 50 ft.) Wheelchair Propulsion Distance 200 Wheelchair FIM Score 5. Supervision (Minimum 150 ft. supv./cues or 50 ft. independently.) Eating Eating FIM Score 6. Modified [place] (Special consistency or uses device.) Dressing-Upper body Patient retrieves clothing No items: Patient applies/removes UE No prosthesis or orthosis: Upper Body Dressing FIM Score 4. Minimal Assistance (Patient = 75% or more. Needs touching.) Dressing-lower body Patient retrieves clothing No items: Patient applies/removes LE No prosthesis or orthosis: Lower Body Dressing FIM Score 2. Maximal Assistance (Patient = 25% or more) - Labs CBC & Chem 7: 10/19/18 10:41 10/19/18 10:41 Labs: Laboratory Results - last 72 hr 10/17/18 10/18/18 10/19/18 22:44 Unknown 10:41 WBC 5.4 RBC 5.13 H Hgb 15.4 H Hct 46.6 H MCV 91 MCH 30 MCHC 33 RDW 13.6 Plt Count 191 Sodium Potassium Chloride Carbon Dioxide Anion Gap BUN Creatinine Estimated GFR BUN/Creatinine Ratio Glucose POC Glucose 113 H Calcium Urine Color Yellow Urine Turbidity Turbid Urine pH 5.0 Ur Specific [place] 1.025 Urine Protein <15 mg/dl Urine Glucose (UA) Neg Urine Ketones Neg Urine Blood Mod Urine Nitrite Pos Ur Reducing Substances Not Reportable Urine Bilirubin Neg Urine Ictotest Not Reportable Urine Urobilinogen 4.0 Ur Leukocyte Esterase Sm Urine WBC (Auto) 125.0 H Urine RBC (Auto) 46.0 U Epithel Cells (Auto) 2.0 Urine Bacteria (Auto) 4+ Urine Mucus 1+ 10/19/18 10:41 WBC RBC Hgb Hct MCV MCH MCHC RDW Plt Count Sodium 137 Potassium 3.8 Chloride 96.2 L Carbon Dioxide 26 Anion Gap 19 BUN 18 Creatinine 1.2 Estimated GFR > 60 BUN/Creatinine Ratio 15 Glucose 152 H POC Glucose Calcium 9.9 Urine Color Urine Turbidity Urine pH Ur Specific [place] Urine Protein Urine Glucose (UA) Urine Ketones Urine Blood Urine Nitrite Ur Reducing Substances Urine Bilirubin Urine Ictotest Urine Urobilinogen Ur Leukocyte Esterase Urine WBC (Auto) Urine RBC (Auto) U Epithel Cells (Auto) Urine Bacteria (Auto) Urine Mucus Assessment and Plan CVA with Right dominant hemiparesis: continue secondary stroke prevention. monitor for shoulder hand syndrome, post stroke depression, worsening neurologic condition. Therapy. On both Eliquis and ASA 81mg. 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 Will consider oral meds if needed Post stroke depression: miles, monitor Z73.6 ADL dysfunction: OT will work on improving ability to perform ADLs (including assistive devices) to increase independence and decrease caregiver burden and improve functional transfers and mobility training. R26.2 Difficulty walking: PT will work on gait training and proper use of assistive devices and advance as appropriate to use of stairs and outside ambulation on uneven surfaces. R26.81 Unsteadiness on feet: PT will work on improving static and dynamic sitting and standing balance as well as proper use of assistive devices to decrease risk of falls. R26.89 Abnormality of gait: PT will work to improve safety and efficiency of gait through neuromotor training and gait training along with instruction on proper use of assistive devices. M62.81 Muscle weakness: PT & OT will work on strengthening exercises to improve functional strength including mixture of closed and open kinetic chain exerc ises. R53.81 Debility: PT & OT will work on improving overall functional status to improve participation with ADLs, mobility and social involvement. R53.83 Fatigue: PT & OT will work on improving endurance through aerobic exercises and therapeutic activity while monitoring patients tolerance for ac tivity and vital signs as needed. K59.00 Constipation: Sched Miralax, monitor UTI: Levaquin and monitor for improvement DVT ppx: Eliquis ( afib) Pain: Continue physical modalities in therapy and pain medications as needed to achieve functional pain control. Sleep: Monitor and address as needed. Bowel: Monitor and address as needed. PRN meds available Appetite: Monitor and address as needed. Decreased, possibly depression related Discharge planning: Pending therapy progress and care plan meeting. Will continue discussion with therapy team, SW, patient and family. looking at SNF Restrictions/ Precautions: Falls, aspiration WB status: FWB Functional Hx: ADLs: Independent Cognition: Independent Mobility: No AD Barriers to Discharge: Decreased mobility and ability to perform self care, balance deficits, weakness Estimated Length of Stay: 14-21 days Discharge Destination: Home with family originally planned, is now considering SNF due to lack of progress.
[2018-10-20] MEDS: CARDIZEM CD PO SCH (08:00)
[2018-10-20] MEDS: PEPCID PO SCH ×2 (08:52→22:31)
[2018-10-20] MEDS: ZOLOFT PO SCH (08:53)
[2018-10-20] MEDS: ZESTRIL PO SCH (08:53)
[2018-10-20] MEDS: HALFPRIN EC PO SCH (08:54)
[2018-10-20] MEDS: MIRALAX 3350 PO SCH (08:55)
[2018-10-20] MEDS: ELIQUIS PO SCH ×2 (10:00→22:31)
[2018-10-20] MEDS: LEVAQUIN PO SCH (10:00)
[2018-10-21] MEDS: LEVAQUIN PO SCH (11:33)
[2018-10-21] MEDS: ELIQUIS PO SCH ×2 (11:33→22:25)
[2018-10-21] MEDS: PEPCID PO SCH ×2 (11:34→22:25)
[2018-10-21] MEDS: HALFPRIN EC PO SCH (11:34)
[2018-10-21] MEDS: ZOLOFT PO SCH (11:35)
[2018-10-21] MEDS: CARDIZEM CD PO SCH (17:10)
[2018-10-21] MEDS: ZESTRIL PO SCH (17:10)
[2018-10-21] MEDS: MIRALAX 3350 PO SCH (17:11)
[2018-10-22] MEDS: ZOLOFT PO SCH (08:57)
[2018-10-22] MEDS: MIRALAX 3350 PO SCH (08:57)
[2018-10-22] MEDS: PEPCID PO SCH ×2 (08:58→21:32)
[2018-10-22] MEDS: ZESTRIL PO SCH (08:58)
[2018-10-22] MEDS: HALFPRIN EC PO SCH (08:58)
[2018-10-22] MEDS: LEVAQUIN PO SCH ×2 (08:58→10:00)
[2018-10-22] MEDS: CARDIZEM CD PO SCH (08:58)
[2018-10-22] MEDS: ELIQUIS PO SCH ×2 (08:59→21:32)
--- NOTE | 2018-10-22 09:39 | Progress Note ---
Subjective Date of service: 10/20/18 Principal diagnosis: CVA Interval history: 68-year-old male with uncertain onset of right facial droop and slurred speech. He presented to the ER and was found to have ischemic changes in the left cerebral hemisphere on MRI. On MRA the left internal carotid showed a slow or no flow. Also slower flow in the distal right vertebral artery. Vascular surgery was consulted and recommended medical optimization with no surgical intervention. Found to have new onset atrial fibrillation and was started on medications including oral anticoagulation and Cardizem. Patient is aphasic with likely both receptive and expressive components. Has been cleared by speech for regular diet. There was a mention of coughing during eating which was related not to dysphagia but possibly due to a chronic cough. Notes stated the chest x-ray would be ordered however I do not see the order or results of chest x-ray. We'll monitor the patient if he shows any signs of aspiration or coughing we will order a chest x-ray and investigate further. Blood pressure medications were being held due to permissive hypertension. At this point we are 4 days out and should start treating hypertension. We'll look to restart medications in the morning if the patient still is showing signs of elevated blood pressure. Patient is participating in therapy and making reasonable progress. Taking rest breaks as needed. No bleeding from gums noted today. +BM. Continue levaquin for UTI - C&S reviewed. Discussed plan with . In agreement with zoloft. Discussed discharge options. Monitor frequently and follow fall precautions. No reports/signs of pain, palpitations, dyspnea, cough, N/V, or joint pain. Increased RUE and RLE tone. Aphasia stable. Y/N answers inconsistent. Continue therapy, stretching and ROM to decrease right sided tone. Improvement has been very slow and at this point with lack of return in UE will likely not recover well. All records, vitals, labs and medications were reviewed. No other issues per patient, nursing or therapy. Objective - Exam Narrative Exam: MUSCULOSKELETAL SPECIALTY EXAM CONSTITUTIONAL: Well developed, well nourished, obese, appropriately groomed. RIGHT hand dominant. RESPIRATORY: Clear to auscultation bilaterally, with distant breath sounds, no increased work of breathing CARDIOVASCULAR: Regular Rate/ Rhythm, no swelling, edema or tenderness in BUE or BLE. All extremities warm. GI: + bowel sounds, soft, NTTP, nondistended. INTEGUMENTARY: Normal, no lesion, rash, masses or bruising noted in extremities except for small mass on left hip, 1/2 dollar sized, with the feel of a lipoma. MUSCULOSKELETAL: BUE and BLE normal without defect, crepitus, subluxation, effusion, arthritic changes or TTP. Additionally, NO TTP over back or skull SA EF WE EE FF FA HF KE ADF EHL APF R 3/5 3/5 3/5 3/5 4-/5 3/5 4-/5 3/5 3/5 3/5 3/5 L 4+/5 overall ROM decreased on right Tone Increased RUE/RLE NEURO: Right facial droop, Tongue protrudes slight right Sensation intact in all extremities without extinction. No tremor noted in 4 extremities. Follows 1 step commands, was able to improve with some 2 step today - i ntermittent Aphasia present, unable to name common objects, Y/N answers 50/50. Unable to show how to hold a pen, apraxia as well. Dysarthria present Dysphagia not appreciated Neglect not appreciated POSTURE and GAIT: Sitting posture good. Balance and Gait improving. Able to walk with HW and ModA PSYCH: Alert, cooperative, orientation unable to be tested due to aphasia, affect appears flat. Insight unable to be tested due to significant aphasia. It seems he realizes he is not improving, will consider SSRI for PSD - Constitutional Vitals: Vital Signs - 12hr 10/21/18 10/22/18 10/22/18 22:00 07:33 08:58 Temperature 36.3 C L Pulse Rate 82 82 Respiratory 21 18 Rate Blood Pressure 121/74 121/74 O2 Sat by Pulse 98 Oximetry - Allied health notes Allied health notes reviewed: nursing, PT, ST, OT FIMS assessment as documented by PT/OT/ST: Grooming Patient cleans teeth/dentures: Yes Patient barrow/brushes hair: Yes Patient washes, rinses and Yes dries face: Patient washes, rinses and Yes dries hands: Patient performs (no make-up/ 2/4 (50%) shaving): Grooming FIM Score 3. Moderate Assistance (Patient = 50% or more) Toileting Toileting Device Urinal Patient able to: Adjust clothes before Patient able to perform: 1/3 (33%) Toileting FIM Score 2. Maximal Assistance (Patient = 25% or more) Social interaction/Memory/Problem solving Social Interaction FIM Score 6. Mod. [place] (Mostly appropriate. May need meds. No supv.) Memory FIM Score 5. Supervision (Needs cueing <10%, stressful/ unfamiliar situations.) Problem Solving FIM Score 3. Moderate Assistance (Solves routine problems 50-74%.) Transfers Mode of Locomotion: Wheelchair Bed/Chair/Wheelchair Transfers 2. Maximal Assistance (Patient = 25% or more) FIM Score Toilet Transfers FIM Score 2. Maximal Assistance (Patient = 25% or more) Patient transferred to: Shower Shower Transfers FIM Score 2. Maximal Assistance (Patient = 25% or more) Locomotion- Stairs Stairs FIM Score 0. Activity does not occur Locomotion- walk/wheelchair Most Frequent Mode of Wheelchair Locomotion: Ambulation Distance 60 Walking FIM Score 2. Maximal Assistance (Patient = 25% or more. Minimum of 50 ft.) Wheelchair Propulsion Distance 300 Wheelchair FIM Score 5. Supervision (Minimum 150 ft. supv./cues or 50 ft. independently.) Eating Eating FIM Score 6. Modified [place] (Special consistency or uses device.) Dressing-Upper body Patient retrieves clothing No items: Patient applies/removes UE No prosthesis or orthosis: Upper Body Dressing FIM Score 4. Minimal Assistance (Patient = 75% or more. Needs touching.) Dressing-lower body Patient retrieves clothing No items: Patient applies/removes LE No prosthesis or orthosis: Lower Body Dressing FIM Score 2. Maximal Assistance (Patient = 25% or more) - Labs CBC & Chem 7: 10/19/18 10:41 10/19/18 10:41 Labs: Laboratory Results - last 72 hr 10/19/18 10/19/18 10/21/18 10:41 10:41 22:06 WBC 5.4 RBC 5.13 H Hgb 15.4 H Hct 46.6 H MCV 91 MCH 30 MCHC 33 RDW 13.6 Plt Count 191 Sodium 137 Potassium 3.8 Chloride 96.2 L Carbon Dioxide 26 Anion Gap 19 BUN 18 Creatinine 1.2 Estimated GFR > 60 BUN/Creatinine Ratio 15 Glucose 152 H POC Glucose 104 Calcium 9.9 10/22/18 07:42 WBC RBC Hgb Hct MCV MCH MCHC RDW Plt Count Sodium Potassium Chloride Carbon Dioxide Anion Gap BUN Creatinine Estimated GFR BUN/Creatinine Ratio Glucose POC Glucose 105 Calcium Assessment and Plan CVA with Right dominant hemiparesis: continue secondary stroke prevention. monitor for shoulder hand syndrome, post stroke depression, worsening neurologic condition. Therapy. On both Eliquis and ASA 81mg. 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 Will consider oral meds if needed Post Stroke Depression: zoloft and monitor Z73.6 ADL dysfunction: OT will work on improving ability to perform ADLs (including assistive devices) to increase independence and decrease caregiver burden and improve functional transfers and mobility training. R26.2 Difficulty walking: PT will work on gait training and proper use of assistive devices and advance as appropriate to use of stairs and outside ambulation on uneven surfaces. R26.81 Unsteadiness on feet: PT will work on improving static and dynamic sitting and standing balance as well as proper use of assistive devices to decrease risk of falls. R26.89 Abnormality of gait: PT will work to improve safety and efficiency of gait through neuromotor training and gait training along with instruction on proper use of assistive devices. M62.81 Muscle weakness: PT & OT will work on strengthening exercises to improve functional strength including mixture of closed and open kinetic chain exercises. R53.81 Debility: PT & OT will work on improving overall functional status to improve participation with ADLs, mobility and social involvement. R53.83 Fatigue: PT & OT will work on improving endurance through aerobic exercises and therapeutic activity while monitoring patients tolerance for activity and vital signs as needed. K59.00 Constipation: Sched Miralax, monitor UTI: Levaquin and monitor for improvement DVT ppx: Eliquis ( afib) Pain: Continue physical modalities in therapy and pain medications as needed to achieve functional pain control. Sleep: Monitor and address as needed. Bowel: Monitor and address as needed. PRN meds available Appetite: Monitor and address as needed. Decreased, possibly depression related Discharge planning: Pending therapy progress and care plan meeting. Will continue discussion with therapy team, SW, patient and family. looking at SNF Restrictions/ Precautions: Falls, aspiration WB status: FWB Functional Hx: ADLs: Independent Cognition: Independent Mobility: No AD Barriers to Discharge: Decreased mobility and ability to perform self care, balance deficits, weakness Estimated Length of Stay: 14-21 days Discharge Destination: Home with family originally planned, is now considering SNF due to lack of progress.
--- NOTE | 2018-10-22 18:13 | Progress Note ---
Subjective Date of service: 10/22/18 Principal diagnosis: CVA Interval history: 68-year-old male with uncertain onset of right facial droop and slurred speech. He presented to the ER and was found to have ischemic changes in the left cerebral hemisphere on MRI. On MRA the left internal carotid showed a slow or no flow. Also slower flow in the distal right vertebral artery. Vascular surgery was consulted and recommended medical optimization with no surgical intervention. Found to have new onset atrial fibrillation and was started on medications including oral anticoagulation and Cardizem. Patient is aphasic with likely both receptive and expressive components. Has been cleared by speech for regular diet. There was a mention of coughing during eating which was related not to dysphagia but possibly due to a chronic cough. Notes stated the chest x-ray would be ordered however I do not see the order or results of chest x-ray. We'll monitor the patient if he shows any signs of aspiration or coughing we will order a chest x-ray and investigate further. Blood pressure medications were being held due to permissive hypertension. At this point we are 4 days out and should start treating hypertension. We'll look to restart medications in the morning if the patient still is showing signs of elevated blood pressure. No bleeding from gums noted today. +BM. Continue levaquin for UTI . Monitor frequently and follow fall precautions. No reports/signs of pain, palpitations, dyspnea, cough, N/V, or joint pain. Increased RUE and RLE tone. Aphasia stable. Y/N answers inconsistent. Continue therapy, stretching and ROM to decrease right sided tone. Improvement has been very slow and at this point with lack of return in UE will likely not recover well. All records, vitals, labs and medications were reviewed. No other issues per patient, nursing or therapy. Objective - Exam Narrative Exam: MUSCULOSKELETAL SPECIALTY EXAM CONSTITUTIONAL: Well developed, well nourished, obese, appropriately groomed. RIGHT hand dominant. RESPIRATORY: Clear to auscultation bilaterally, with distant breath sounds, no increased work of breathing CARDIOVASCULAR: Regular Rate/ Rhythm, no swelling, edema or tenderness in BUE or BLE. All extremities warm. GI: + bowel sounds, soft, NTTP, nondistended. INTEGUMENTARY: Normal, no lesion, rash, masses or bruising noted in extremities except for small mass on left hip, 1/2 dollar sized, with the feel of a lipoma. MUSCULOSKELETAL: BUE and BLE normal without defect, crepitus, subluxation, effusion, arthritic changes or TTP. Additionally, NO TTP over back or skull SA EF WE EE FF FA HF KE ADF EHL APF R 3/5 3/5 3/5 3/5 4-/5 3/5 4-/5 3/5 3/5 3/5 3/5 L 4+/5 overall ROM decreased on right Tone Increased RUE/RLE NEURO: Right facial droop, Tongue protrudes slight right Sensation intact in all extremities without extinction. No tremor noted in 4 extremities. Follows 1 step commands, was able to improve with some 2 step today - intermittent Aphasia present, unable to name common objects, Y/N answers 50/50. Unable to show how to hold a pen, apraxia as well. Dysarthria present Dysphagia not appreciated Neglect not appreciated POSTURE and GAIT: Sitting posture good. Balance and Gait improving. Able to walk with HW and ModA PSYCH: Alert, cooperative, orientation unable to be tested due to aphasia, affect appears flat. Insight unable to be tested due to significant aphasia. - Constitutional Vitals: Vital Signs - 12hr 10/22/18 10/22/18 10/22/18 07:33 08:58 12:02 Temperature 36.3 C L 36.3 C L Pulse Rate 82 82 89 Respiratory 18 20 Rate Blood Pressure 121/74 121/74 121/63 O2 Sat by Pulse 98 95 Oximetry - Allied health notes FIMS assessment as documented by PT/OT/ST: Grooming Patient cleans teeth/dentures: Yes Patient barrow/brushes hair: Yes Patient washes, rinses and Yes dries face: Patient washes, rinses and Yes dries hands: Patient performs (no make-up/ 2/4 (50%) shaving): Grooming FIM Score 3. Moderate Assistance (Patient = 50% or more) Toileting Toileting Device Urinal Patient able to: Adjust clothes before Patient able to perform: 1/3 (33%) Toileting FIM Score 2. Maximal Assistance (Patient = 25% or more) Social interaction/Memory/Problem solving Social Interaction FIM Score 6. Mod. [place] (Mostly appropriate. May need meds. No supv.) Memory FIM Score 5. Supervision (Needs cueing <10%, stressful/ unfamiliar situations.) Problem Solving FIM Score 3. Moderate Assistance (Solves routine problems 50-74%.) Transfers Mode of Locomotion: Wheelchair Bed/Chair/Wheelchair Transfers 2. Maximal Assistance (Patient = 25% or more) FIM Score Toilet Transfers FIM Score 2. Maximal Assistance (Patient = 25% or more) Patient transferred to: Shower Shower Transfers FIM Score 2. Maximal Assistance (Patient = 25% or more) Locomotion- Stairs Stairs FIM Score 0. Activity does not occur Locomotion- walk/wheelchair Most Frequent Mode of Wheelchair Locomotion: Ambulation Distance 60 Walking FIM Score 2. Maximal Assistance (Patient = 25% or more. Minimum of 50 ft.) Wheelchair Propulsion Distance 300 Wheelchair FIM Score 5. Supervision (Minimum 150 ft. supv./cues or 50 ft. independently.) Eating Eating FIM Score 6. Modified [place] (Special consistency or uses device.) Dressing-Upper body Patient retrieves clothing No items: Patient applies/removes UE No prosthesis or orthosis: Upper Body Dressing FIM Score 4. Minimal Assistance (Patient = 75% or more. Needs touching.) Dressing-lower body Patient retrieves clothing No items: Patient applies/removes LE No prosthesis or orthosis: Lower Body Dressing FIM Score 2. Maximal Assistance (Patient = 25% or more) - Labs CBC & Chem 7: 10/19/18 10:41 10/19/18 10:41 Labs: Laboratory Results - last 72 hr 10/21/18 10/22/18 10/22/18 22:06 07:42 12:06 POC Glucose 104 105 114 H Assessment and Plan CVA with Right dominant hemiparesis: continue secondary stroke prevention. monitor for shoulder hand syndrome, post stroke depression, worsening neurologic condition. Therapy. On both Eliquis and ASA 81mg. Monitor for bleeding Aphasia: Cont CONE TENDER for improvement and alternative communication skills AFib: continue cardizem for rate control and eliquis for a/c HTN: lisinopril and monitor for effect Increased RUE/RLE tone: discussed with OT, cont stretching and ROM. Will consider oral meds if needed Post Stroke Depression: zoloft and monitor Z73.6 ADL dysfunction: OT will work on improving ability to perform ADLs (including assistive devices) to increase independence and decrease caregiver burden and improve functional transfers and mobility training. R26.2 Difficulty walking: PT will work on gait training and proper use of assistive devices and advance as appropriate to use of stairs and outside ambulation on uneven surfaces. R26.81 Unsteadiness on feet: PT will work on improving static and dynamic sitting and standing balance as well as proper use of assistive devices to decrease risk of falls. R26.89 Abnormality of gait: PT will work to improve safety and efficiency of gait through neuromotor training and gait training along with instruction on pr oper use of assistive devices. M62.81 Muscle weakness: PT & OT will work on strengthening exercises to improve functional strength including mixture of closed and open kinetic chain exercises. R53.81 Debility: PT & OT will work on improving overall functional status to improve participation with ADLs, mobility and social involvement. R53.83 Fatigue: PT & OT will work on improving endurance through aerobic exercises and therapeutic activity while monitoring patients tolerance for activity and vital signs as needed. K59.00 Constipation: Sched Miralax, monitor UTI: Levaquin and monitor for improvement DVT ppx: Eliquis ( afib) Pain: Continue physical modalities in therapy and pain medications as needed to achieve functional pain control. Sleep: Monitor and address as needed. Bowel: Monitor and address as needed. PRN meds available Appetite: Monitor and address as needed. Decreased, possibly depression related Discharge planning: Pending therapy progress and care plan meeting. Luis Daniel stewart discussion with therapy team, JOLLY, patient and family. looking at SNF Restrictions/ Precautions: Falls, aspiration WB status: FWB Functional Hx: ADLs: Independent Cognition: Independent Mobility: No AD Barriers to Discharge: Decreased mobility and ability to perform self care, kdear nce deficits, weakness Estimated Length of Stay: 14-21 days Discharge Destination: Home with family originally planned, is now considering SNF due to lack of progress.
[2018-10-23] MEDS: MIRALAX 3350 PO SCH (09:09)
[2018-10-23] MEDS: ZOLOFT PO SCH (09:09)
[2018-10-23] MEDS: PEPCID PO SCH ×2 (09:09→21:48)
[2018-10-23] MEDS: ZESTRIL PO SCH (09:09)
[2018-10-23] MEDS: LEVAQUIN PO SCH (09:09)
[2018-10-23] MEDS: ELIQUIS PO SCH ×2 (09:09→21:48)
[2018-10-23] MEDS: HALFPRIN EC PO SCH (09:09)
[2018-10-23] MEDS: CARDIZEM CD PO SCH (11:18)
--- NOTE | 2018-10-23 12:57 | Progress Note ---
Subjective Date of service: 10/23/18 Principal diagnosis: CVA Interval history: 68-year-old male with uncertain onset of right facial droop and slurred speech. He presented to the ER and was found to have ischemic changes in the left cerebral hemisphere on MRI. On MRA the left internal carotid showed a slow or no flow. Also slower flow in the distal right vertebral artery. Vascular surgery was consulted and recommended medical optimization with no surgical intervention. Found to have new onset atrial fibrillation and was started on medications including oral anticoagulation and Cardizem. Patient is aphasic with likely both receptive and expressive components. Has been cleared by speech for regular diet. There was a mention of coughing during eating which was related not to dysphagia but possibly due to a chronic cough. Notes stated the chest x-ray would be ordered however I do not see the order or results of chest x-ray. We'll monitor the patient if he shows any signs of aspiration or coughing we will order a chest x-ray and investigate further. Blood pressure medications were being held due to permissive hypertension. At this point we are 4 days out and should start treating hypertension. We'll look to restart medications in the morning if the patient still is showing signs of elevated blood pressure. No bleeding from gums noted today. +BM. Monitor frequently and follow fall precautions. No reports/signs of pain, palpitations, dyspnea, cough, N/V, or j oint pain. Increased RUE and RLE tone. Aphasia stable. Y/N answers inconsistent. Continue therapy, stretching and ROM to decrease right sided tone. Improvement has been very slow and at this point with lack of return in UE will likely not recover well. All records, vitals, labs and medications were reviewed. No other issues per patient, nursing or therapy. Objective - Exam Narrative Exam: MUSCULOSKELETAL SPECIALTY EXAM CONSTITUTIONAL: Well developed, well nourished, obese, appropriately groomed. RIGHT hand dominant. RESPIRATORY: Clear to auscultation bilaterally, with distant breath sounds, no increased work of breathing CARDIOVASCULAR: Regular Rate/ Rhythm, no swelling, edema or tenderness in BUE or BLE. All extremities warm. GI: + bowel sounds, soft, NTTP, nondistended. INTEGUMENTARY: Normal, no lesion, rash, masses or bruising noted in extremities except for small mass on left hip, 1/2 dollar sized, with the feel of a lipoma. MUSCULOSKELETAL: BUE and BLE normal without defect, crepitus, subluxation, effusion, arthritic changes or TTP. SA EF WE EE FF FA HF KE ADF EHL APF R 3/5 3/5 3/5 3/5 4-/5 3/5 4-/5 3/5 3/5 3/5 3/5 L 4+/5 overall ROM decreased on right Tone Increased RUE/RLE but better than before NEURO: Right facial droop, Tongue protrudes slight right Sensation intact in all extremities without extinction. No tremor noted in 4 extremities. Follows 1 step commands, was able to improve with some 2 step today - intermittent Aphasia present, unable to name common objects, Y/N answers 50/50. apraxia. Dysarthria present Dysphagia not appreciated Neglect not appreciated POSTURE and GAIT: Sitting posture good. Balance and Gait improving. Able to walk with HW and ModA PSYCH: Alert, cooperative, orientation unable to be tested due to aphasia, affect appears flat. Insight unable to be tested due to significant aphasia. - Constitutional Vitals: Vital Signs - 12hr 10/23/18 10/23/18 10/23/18 00:58 04:42 05:41 Temperature 36.3 C L 36.3 C L Pulse Rate 89 65 58 L Respiratory 18 18 Rate Blood Pressure Blood Pressure 122/81 109/63 [Right] O2 Sat by Pulse 98 95 96 Oximetry 10/23/18 10/23/18 07:36 11:18 Temperature 36.8 C 37.1 C Pulse Rate 58 L 92 H Respiratory 18 18 Rate Blood Pressure 116/88 109/64 Blood Pressure [Right] O2 Sat by Pulse 95 95 Oximetry - Allied health notes Allied health notes reviewed: nursing, PT, ST, OT FIMS assessment as documented by PT/OT/ST: Grooming Patient cleans teeth/dentures: Yes Patient barrow/brushes hair: Yes Patient washes, rinses and Yes dries face: Patient washes, rinses and Yes dries hands: Patient performs (no make-up/ 2/4 (50%) shaving): Grooming FIM Score 3. Moderate Assistance (Patient = 50% or more) Toileting Toileting Device Urinal Patient able to: Adjust clothes before Patient able to perform: 1/3 (33%) Toileting FIM Score 2. Maximal Assistance (Patient = 25% or more) Social interaction/Memory/Problem solving Social Interaction FIM Score 6. Mod. [place] (Mostly appropriate. May need meds. No supv.) Memory FIM Score 5. Supervision (Needs cueing <10%, stressful/ unfamiliar situations.) Problem Solving FIM Score 2. Maximal Assistance (Solves problems 25-49% or needs restraint.) Transfers Mode of Locomotion: Wheelchair Bed/Chair/Wheelchair Transfers 3. Moderate Assistance (Patient = 50% or more. FIM Score Some lifting.) Toilet Transfers FIM Score 2. Maximal Assistance (Patient = 25% or more) Patient transferred to: Shower Shower Transfers FIM Score 2. Maximal Assistance (Patient = 25% or more) Locomotion- Stairs Stairs FIM Score 0. Activity does not occur Locomotion- walk/wheelchair Most Frequent Mode of Wheelchair Locomotion: Ambulation Distance 50 Walking FIM Score 2. Maximal Assistance (Patient = 25% or more. Minimum of 50 ft.) Wheelchair Propulsion Distance 300 Wheelchair FIM Score 5. Supervision (Minimum 150 ft. supv./cues or 50 ft. independently.) Eating Eating FIM Score 5. Supervision/Set-Up (Needs help w/ containers, cutting meat, etc.) Dressing-Upper body Patient retrieves clothing No items: Patient applies/removes UE No prosthesis or orthosis: Upper Body Dressing FIM Score 4. Minimal Assistance (Patient = 75% or more. Needs touching.) Dressing-lower body Patient retrieves clothing No items: Patient applies/removes LE No prosthesis or orthosis: Lower Body Dressing FIM Score 2. Maximal Assistance (Patient = 25% or more) - Labs CBC & Chem 7: 10/19/18 10:41 10/19/18 10:41 Labs: Laboratory Results - last 72 hr 10/21/18 10/22/18 10/22/18 22:06 07:42 12:06 POC Glucose 104 105 114 H Assessment and Plan CVA with Right dominant hemiparesis: continue secondary stroke prevention. monitor for shoulder hand syndrome, post stroke depression, worsening neurologic condition. Therapy. On both Eliquis and ASA 81mg. 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 Improving since UTI treatment Post Stroke Depression: zoloft and monitor Z73.6 ADL dysfunction: OT will work on improving ability to perform ADLs (including assistive devices) to increase independence and decrease caregiver burden and improve functional transfers and mobility training. R26.2 Difficulty walking: PT will work on gait training and proper use of assistive devices and advance as appropriate to use of stairs and outside ambulation on uneven surfaces. R26.81 Unsteadiness on feet: PT will work on improving static and dynamic sitting and standing balance as well as proper use of assistive devices to decrease risk of falls. R26.89 Abnormality of gait: PT will work to improve safety and efficiency of gait through neuromotor training and gait training along with instruction on proper use of assistive devices. M62.81 Muscle weakness: PT & OT will work on strengthening exercises to improve functional strength including mixture of closed and open kinetic chain exercises. R53.81 Debility: PT & OT will work on improving overall functional status to improve participation with ADLs, mobility and social involvement. R53.83 Fatigue: PT & OT will work on improving endurance through aerobic exercises and therapeutic activity while monitoring patients tolerance for activity and vital signs as needed. K59.00 Constipation: Sched Miralax, monitor UTI: resolved DVT ppx: Eliquis ( afib) Pain: Continue physical modalities in therapy and pain medications as needed to achieve functional pain control. Sleep: Monitor and address as needed. Bowel: Monitor and address as needed. PRN meds available Appetite: Monitor and address as needed. Decreased, possibly depression related Discharge planning: Pending therapy progress and care plan meeting. Will continue discussion with therapy team, SW, patient and family. looking at SNF Restrictions/ Precautions: Falls, aspiration WB status: FWB Functional Hx: ADLs: Independent Cognition: Independent Mobility: No AD Barriers to Discharge: Decreased mobility and ability to perform self care, balance deficits, weakness Estimated Length of Stay: 14-21 days Discharge Destination: Home with family originally planned, is now c onsidering SNF due to lack of progress.
--- NOTE | 2018-10-24 07:38 | Progress Note ---
Subjective Date of service: 10/24/18 Principal diagnosis: CVA Interval history: 68-year-old male with uncertain onset of right facial droop and slurred speech. He presented to the ER and was found to have ischemic changes in the left cerebral hemisphere on MRI. On MRA the left internal carotid showed a slow or no flow. Also slower flow in the distal right vertebral artery. Vascular surgery was consulted and recommended medical optimization with no surgical intervention. Found to have new onset atrial fibrillation and was started on medications including oral anticoagulation and Cardizem. Patient is aphasic with likely both receptive and expressive components. Has been cleared by speech for regular diet. There was a mention of coughing during eating which was related not to dysphagia but possibly due to a chronic cough. Notes stated the chest x-ray would be ordered however I do not see the order or results of chest x-ray. We'll monitor the patient if he shows any signs of aspiration or coughing we will order a chest x-ray and investigate further. Blood pressure medications were being held due to permissive hypertension. At this point we are 4 days out and should start treating hypertension. We'll look to restart medications in the morning if the patient still is showing signs of elevated blood pressure. No bleeding from gums noted today. +BM. Monitor frequently and follow fall precautions. May DC today to SNF. No reports/signs of pain, palpitations, dyspn ea, cough, N/V, or joint pain. RUE and RLE tone improving. Aphasia stable. Y/N answers inconsistent. Continue therapy, stretching and ROM to decrease right sided tone. Improvement has been very slow and at this point with lack of return in UE will likely not recover well. All records, vitals, labs and medications were reviewed. No other issues per patient, nursing or therapy. Objective - Exam Narrative Exam: MUSCULOSKELETAL SPECIALTY EXAM CONSTITUTIONAL: Well developed, well nourished, obese, appropriately groomed. RIGHT hand dominant. RESPIRATORY: Clear to auscultation bilaterally, no increased work of breathing CARDIOVASCULAR: Regular Rate/ Rhythm, no swelling, edema or tenderness in BUE or BLE. All ext remities warm. GI: + bowel sounds, soft, NTTP, nondistended. INTEGUMENTARY: Normal, no lesion, rash, masses or bruising noted in extremities except for small mass on left hip, 1/2 dollar sized, with the feel of a lipoma. MUSCULOSKELETAL: BUE and BLE normal without defect, crepitus, subluxation, effusion, arthritic changes or TTP. SA EF WE EE FF FA HF KE ADF EHL APF R 3/5 3/5 3/5 3/5 4-/5 3/5 4-/5 3/5 3/5 3/5 3/5 L 4+/5 overall ROM decreased on right Tone Increased RUE/RLE but better than before NEURO: Right facial droop, Tongue protrudes slight right Sensation intact in all extremities without extinction. No tremor noted in 4 extremities. Follows 1 step commands, was able to improve with some 2 step today - intermittent Aphasia present, unable to name common objects, Y/N answers 50/50. apraxia. Dysarthria present Dysphagia not appreciated Neglect not appreciated POSTURE and GAIT: Sitting posture good. Balance and Gait improving. Able to walk with HW and ModA PSYCH: Alert, cooperative, orientation unable to be tested due to aphasia, affect gina ears flat. Insight unable to be tested due to significant aphasia. - Constitutional Vitals: Vital Signs - 12hr 10/23/18 10/23/18 10/24/18 20:10 23:00 04:48 Temperature 36.7 C 37.0 C Pulse Rate 91 H 88 Respiratory 20 18 18 Rate Blood Pressure 128/73 Blood Pressure 112/69 [Right] O2 Sat by Pulse 98 96 Oximetry - Allied health notes Allied health notes reviewed: nursing, PT, ST, OT FIMS assessment as documented by PT/OT/ST: Grooming Patient cleans teeth/dentures: Yes: Pt req Min/CGA to complete task. Patient barrow/brushes hair: Yes: S/U Patient washes, rinses and Yes dries face: Patient washes, rinses and Yes dries hands: Patient performs (no make-up/ 2/4 (50%) shaving): Grooming FIM Score 3. Moderate Assistance (Patient = 50% or more) Toileting Toileting Device Urinal Patient able to: Adjust clothes before Patient able to perform: 1/3 (33%) Toileting FIM Score 1. Total Assistance (Patient less than 25%. 2 or more persons.) Social interaction/Memory/Problem solving Social Interaction FIM Score 6. Mod. [place] (Mostly appropriate. May need meds. No supv.) Memory FIM Score 6. Modified [place](Mild difficulty remembering people/routines.) Problem Solving FIM Score 5. Supervision (Needs cueing <10% to solve routine problems.) Transfers Mode of Locomotion: Wheelchair Bed/Chair/Wheelchair Transfers 3. Moderate Assistance (Patient = 50% or more. FIM Score Some lifting.) Toilet Transfers FIM Score 0. Activity does not occur Patient transferred to: Shower Tub Transfers FIM Score 0. Activity does not occur Shower Transfers FIM Score 2. Maximal Assistance (Patient = 25% or more) Locomotion- Stairs Stairs FIM Score 0. Activity does not occur Locomotion- walk/wheelchair Most Frequent Mode of Wheelchair Locomotion: Ambulation Distance 50 Walking FIM Score 2. Maximal Assistance (Patient = 25% or more. Minimum of 50 ft.) Wheelchair Propulsion Distance 300 Wheelchair FIM Score 5. Supervision (Minimum 150 ft. supv./cues or 50 ft. independently.) Eating Eating FIM Score 5. Supervision/Set-Up (Needs help w/ containers, cutting meat, etc.) Dressing-Upper body Patient retrieves clothing No items: Patient applies/removes UE No prosthesis or orthosis: Upper Body Dressing FIM Score 2. Maximal Assistance (Patient = 25% or more) Dressing-lower body Patient retrieves clothing No items: Patient applies/removes LE No prosthesis or orthosis: Lower Body Dressing FIM Score 1. Total Assistance (Patient less than 25%) - Labs CBC & Chem 7: 10/19/18 10:41 10/19/18 10:41 Labs: Laboratory Results - last 72 hr 10/21/18 10/22/18 10/22/18 22:06 07:42 12:06 POC Glucose 104 105 114 H Assessment and Plan CVA with Right dominant hemiparesis: continue secondary stroke prevention. monitor for shoulder hand syndrome, post stroke depression, worsening neurologic condition. Therapy. On both Eliquis and ASA 81mg. 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 Improving since UTI treatment Post Stroke Depression: zoloft and monitor Z73.6 ADL dysfunction: OT will work on improving ability to perform ADLs (including assistive devices) to increase independence and decrease caregiver burden and improve functional transfers and mobility training. R26.2 Difficulty walking: PT will work on gait training and proper use of assistive devices and advance as appropriate to use of stairs and outside ambulation on uneven surfaces. R26.81 Unsteadiness on feet: PT will work on improving static and dynamic sitting and standing balance as well as proper use of assistive devices to decrease risk of falls. R26.89 Abnormality of gait: PT will work to improve safety and efficiency of gait through neuromotor training and gait training along with instruction on proper use of assistive devices. M62.81 Muscle weakness: PT & OT will work on strengthening exercises to improve functional strength including mixture of closed and open kinetic chain exercises. R53.81 Debility: PT & OT will work on improving overall functional status to improve participation with ADLs, mobility and social involvement. R53.83 Fatigue: PT & OT will work on improving endurance through aerobic exercises and therapeutic activity while monitoring patients tolerance for activity and vital signs as needed. K59.00 Constipation: Sched Miralax, monitor UTI: resolved DVT ppx: Eliquis ( afib) Pain: Continue physical modalities in therapy and pain medications as needed to achieve functional pain control. Sleep: Monitor and address as needed. Bowel: Monitor and address as needed. PRN meds available Appetite: Monitor and address as needed. Decreased, possibly depression related Discharge planning: Pending therapy progress and care plan meeting. Will continue discussion with therapy team, SW, patient and family. looking at SNF Restrictions/ Precautions: Falls, aspiration WB status: FWB Functional Hx: ADLs: Independent Cognition: Independent Mobility: No AD Barriers to Discharge: Decreased mobility and ability to perform self care, balance deficits, weakness Estimated Length of Stay: 14-21 days Discharge Destination: Home with family originally planned, is now considering SNF due to lack of progress. May DC today
[2018-10-24] MEDS: MIRALAX 3350 PO SCH (08:56)
[2018-10-24] MEDS: PEPCID PO SCH (09:02)
[2018-10-24] MEDS: ZOLOFT PO SCH (09:02)
[2018-10-24] MEDS: ZESTRIL PO SCH (09:02)
[2018-10-24] MEDS: ELIQUIS PO SCH (09:02)
[2018-10-24] MEDS: HALFPRIN EC PO SCH (09:03)
[2018-10-24] MEDS: CARDIZEM CD PO SCH (09:03)
[2018-10-24 13:36] VITALS: BP 103/73
--- NOTE | 2018-10-24 14:28 | Discharge Summary ---
Providers - Providers Date of Admission: 10/05/18 14:41 Date of discharge: 10/24/18 Attending physician: RUSTY MOLINA III, MD 10/05/18 12:12 Occupational Therapy Evaluate and Treat [CONS] Routine Comment: Reason For Exam: ADL dysfunction Physical Therapy Evaluation and Treat [CONS] Routine Comment: Reason For Exam: Mobility Dysfunction Speech Therapy Evaluation and Treat [CONS] Routine Reason For Exam: Dysphagia/cog/dysarthria 10/05/18 12:16 Consult to Case Management [CONS] Routine Services Needed at Discharge: Home Health Services Notified:: maico Phone number called:: [phone] If yes, spoke with:: maico Primary care physician: MAURA REYES Hospitalization Reason for admission: CVA Condition: Fair Hospital course: 68-year-old male with uncertain onset of right facial droop and slurred speech. He presented to the ER and was found to have ischemic changes in the left cerebral hemisphere on MRI. On MRA the left internal carotid showed a slow or no flow. Also slower flow in the distal right vertebral artery. Vascular surgery was consulted and recommended medical optimization with no surgical intervention. Found to have new onset atrial fibrillation and was started on medications including oral anticoagulation and Cardizem. Patient is aphasic with likely both receptive and expressive components. Has been cleared by speech for regular diet. There was a mention of coughing during eating which was related not to dysphagia but possibly due to a chronic cough. Notes stated the chest x-ray would be ordered however I do not see the order or results of chest x-ray. We'll monitor the patient if he shows any signs of aspiration or coughing we will order a chest x-ray and investigate further. Blood pressure medications were being held due to permissive hypertension. At this point we are 4 days out and should start treating hypertension. We'll look to restart medications in the morning if the patient still is showing signs of elevated blood pressure. Monitor frequently and follow fall precautions. No reports/signs of bleeding, pain, palpitations, dyspnea, cough, N/V, or joint pain. RUE and RLE tone improved after UTI treatment. Aphasia (receptive/expressive) stable. Y/N answers inconsistent. Continue therapy, stretching and ROM to decrease right sided tone. Improvement has been very slow and at this point with lack of return in UE with have poorer prognosis for return to PLOF. Continue secondary stroke prevention and monitor for neurologic changes. Blood pressure has been stable. Atrial Fibrillation has been controlled. 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 Improving in ability to perform SPT. Disposition: DC/TX-03 SNF [facility] Time spent for discharge: >30mins - Discharge Diagnoses (1) Depression as late effect of cerebrovascular accident (CVA) Status: Acute (2) Aphasia as late effect of cerebrovascular accident Status: Acute (3) Atrial fibrillation with RVR Status: Chronic (4) CVA (cerebral vascular accident) Status: Acute Qualifiers: CVA mechanism: unspecified Qualified Code(s): I63.9 - Cerebral infarction, unspecified (5) Hypertension Status: Chronic Qualifiers: Hypertension type: essential hypertension Qualified Code(s): I10 - Essential (primary) hypertension Core Measure Documentation - Palliative Care Palliative Care/ Comfort Measures: Not Applicable - Core Measures Any of the following diagnoses?: stroke - Stroke Discharge Requirements Statin for LDL = or >70 mg/dl on DC: Yes Anticoag for atrial fib/atrial flutter: Yes Antithrombotic for ischemic stroke: Yes Exam - Physical Exam Narrative exam: MUSCULOSKELETAL SPECIALTY EXAM CONSTITUTIONAL: Well developed, well nourished, obese, appropriately groomed. RIGHT hand dominant. RESPIRATORY: Clear to auscultation bilaterally, with distant breath sounds, no increased work of breathing CARDIOVASCULAR: Regular Rate/ Rhythm, no swelling, edema or tenderness in BUE or BLE. All extremities warm. GI: + bowel sounds, soft, NTTP, nondistended. INTEGUMENTARY: Normal, no lesion, rash, masses or bruising noted in extremities except for small mass on left hip, 1/2 dollar sized, with the feel of a lipoma. MUSCULOSKELETAL: BUE and BLE normal without defect, crepitus, subluxation, effusion, arthritic changes or TTP. SA EF WE EE FF FA HF KE ADF EHL APF R 3/5 3/5 3/5 3/5 4-/5 3/5 4-/5 3/5 3/5 3/5 3/5 L 4+/5 overall ROM decreased on right Tone Increased RUE/RLE NEURO: Right facial droop, Tongue protrudes slight right Sensation intact in all extremities without extinction. No tremor noted in 4 extremities. Follows 1 step commands, was able to improve with some 2 step today - intermittent Aphasia present, unable to name common objects, Y/N answers 50/50. apraxia as well. Dysarthria present Dysphagia not appreciated Neglect not appreciated POSTURE and GAIT: Sitting posture good. Balance and Gait improving. Able to walk with HW and ModA PSYCH: Alert, cooperative, orientation unable to be tested due to aphasia, affect appears flat. Insight unable to be tested due to significant aphasia. 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
== END 2018-10-24 16:15 | DRG 65 ==
LOC: UNDOADMIN 10:45 → 3A 10:45 → 3B-SURG 14:41 → 3B 10-07 15:30
PROVIDERS: ADMIT Physical Medicine & Rehabilitation; ATTEND Physical Medicine & Rehabilitation
DX: I63.9 Cerebral infarction, unspecified (principal); G81.91 Hemiplegia, unspecified affecting right dominant side; R29.810 Facial weakness; I10 Essential (primary) hypertension; K59.00 Constipation, unspecified; I48.91 Unspecified atrial fibrillation; F32.9 Major depressive disorder, single episode, unspecified; R26.81 Unsteadiness on feet; R26.89 Other abnormalities of gait and mobility; M62.81 Muscle weakness (generalized); R47.81 Slurred speech; M89.0 Algoneurodystrophy; Z82.49 Family history of ischemic heart disease and other diseases of the circulatory system; I69.320 Aphasia following cerebral infarction; Z79.899 Other long term (current) drug therapy; Z79.82 Long term (current) use of aspirin
CPT/HCPCS: 36415; 80048; 80053; 81001; 82962; 85025; 85027; 87076; 87086; 87186; G0378; G0515; A9270-GY; Q0162